=== PATIENT | female | born 1945 | race Caucasian/White ===

== ENCOUNTER 2024-08-13 15:54 | Inpatient (IN) | payer BC, SELFPAY ==
[2024-08-13] VITALS (13 sets, daily range): BP systolic 135–164; BP diastolic 65–103; BMI 23.0
[2024-08-13 12:23] LABS: Glucose - Point of Care 182 mg/dl (70-99)
--- NOTE | 2024-08-13 12:26 | ED.CVA ---
History of Present Illness
General
Chief Complaint: CVA/TIA Symptoms
Time Seen by Provider: 08/13/24 12:25
Onset of Stroke Symptoms
Onset of symptoms known: Yes
Date of onset of symptoms: 08/13/24
Time of onset of symptoms: 11:30
History of Present Illness
History of Present Illness:
79-year-old female with history of metastatic lung cancer presents to the emergency department for evaluation of stroke symptoms. She apparently began feeling lightheaded which prompted staff to call EMS, on arrival of EMS she was noted to have
left upper and left lower extremity weakness. She denies any speech difficulty, vision changes, neck pain, or vomiting. No prior history of stroke. She is anticoagulated due to a PE in February 2024. She was receiving IV infusion of gemcitabine
when the symptoms began.
Review of Systems
Review of Systems
Allergies reviewed?: Yes
All Other Systems: ROS reviewed and negative except as documented in HPI and ROS
Phy Exam
Physical Exam
Physical Exam:
GEN: Well appearing, NAD, WDWN
HEENT: Oral mucosa moist, no scleral icterus, no nasal congestion
Cardiac: Regular rate
Lung: No respiratory distress, no tachypnea
MSK: No gross deformity or injuries
Skin: Good color, no pallor or jaundice, no rashes
Neuro: AO x3; CN II-XII grossly intact. Left upper extremity weakness, 4 out of 5 strength, sensation intact. Left lower extremity strength is 3 out of 5, sensation intact. Limb ataxia x 1 to the left upper extremity
Psych: Calm, cooperative
Scores
NIH Stroke Score
Level of Consciousness: 0 - Alert
LOC Questions: 0-Answers both correctly
LOC Commands: 0-Performs both correctly
Best Horizontal Gaze: 0-Normal
Visual Soliman: 0=Normal, no visual loss
Facial Palsy: 0=Normal, symmetrical
Motor - Right Arm: 0=No drift 10 seconds
Motor - Left Arm: 2=Partial vs. gravity
Motor - Right Le-No drift 5 seconds
Motor - Left Le-None vs. gravity
Limb Ataxia: 1-Present in one limb
Sensation: 0-Normal
Best Language: 0-No aphasia
Dysarthria: 0-Normal
Course
Orders/Labs/Results
Orders:
Orders
08/13/24 12:25
CT HEAD STROKE ALERT W/o Cont Urgent
Comment:
Reason For Exam: stroke
CT HEAD/NECK ANG STROKE ALERT Urgent
Comment:
Reason For Exam: stroke
08/13/24 12:26
Electrocardiogram (*1) Stat
Reason for Study: Other
Other Reason for Exam: neuro symptoms
EKG- Treatment ONCE
08/13/24 12:58
Complete Blood Count/With Diff Urgent
Comprehensive Metabolic Panel Urgent
PTT Urgent
Prothrombin Time Urgent
Troponin I Urgent
Abnormal Lab Results
08/13/24 08/13/24
12:22 12:58
WBC 13.5 H 10^3/uL
(4.8-10.8)
Hct 36.4 L %
(37.0-47.0)
RDW 18.8 H %
(11.5-14.5)
Abs Immat Gran (auto) 0.7 H 10^3/uL
(0-0.05)
Absolute Neuts (auto) 11.9 H 10^3/uL
(1.4-6.5)
Absolute Lymphs (auto) 0.3 L 10^3/uL
(1.2-3.4)
Immature Gran % 4.8 H %
(0-0.5)
Neutrophils % 88.1 H %
(42.2-75.2)
Lymphocytes % 2.4 L %
(20.5-51.1)
PT 17.0 H Sec
(11.4-14.6)
BUN 19 H mg/dl
(7-17)
Creatinine 0.5 L mg/dL
(0.6-1.0)
Glucose 174 H mg/dl
(70-99)
Total Protein 5.8 L g/dl
(6.3-8.2)
Albumin 3.4 L g/dl
(3.5-5.0)
POC Glucose 182 H mg/dl
(70-99)
08/13/24 12:58
08/13/24 12:58
Vital Signs
Initial and Last Documented VS:
Initial Vital Signs
BP
164/103
08/13/24 12:20
Last Documented Vital Signs
Temp Pulse Resp BP Pulse Ox
98.3 F 98 16 164/103 98
08/13/24 12:22 08/13/24 13:00 08/13/24 13:00 08/13/24 12:22 08/13/24 13:07
MDM/Problems Addressed
MDM/Problems Addressed:
79-year-old female presents as a stroke alert. She has an NIH score of 6 for left upper and lower extremity weakness as well as left upper extremity ataxia. CT and CTA showed no evidence for hemorrhage or large vessel occlusion. She is
anticoagulated on Eliquis thus is not a candidate for thrombolysis as she has taken this within the past 48 hours. Neurology saw the patient and consulted at bedside. Will admit to the hospitalist service for further management
*Critical Care Note
Total Time (30-74mins, 75-104mins- exclusive of procedures): Not Applicable
ED Attending Note
-
Portions of this chart may have been created with voice recognition software.� Occasional wrong word or��sound alike� substitutions may have occurred due to the inherent limitations of voice recognition software.
Discharge Plan
Departure
Patient Disposition: Admit
Date of Disposition: 08/13/24
Time of Disposition: 13:52
Presentation/result/management discussed w/ accepting MD/DO: Hospitalist
Discharge Problem:
Stroke
Instructions: Stroke (DC)
Referrals:
UNKNOWN - PT DOES,NOT KNOW [Family Provider] -
Interventions
Interventions:
*Risk Screen - Suicide Last Done: 08/13/24 13:05
*General Assessment Last Done: 08/13/24 13:05
*Neglect/Abuse Screening Last Done: 08/13/24 13:05
*ED- Fall Risk Assessment Last Done: 08/13/24 13:05
*ED COVID-19 Vaccine History Last Done: 08/13/24 13:05
ED- Pulmonary Assessment Last Done: 08/13/24 13:07
ED- Neurological Assessment Last Done: 08/13/24 13:07
ED- Cardiac Assessment Last Done: 08/13/24 13:07
ED Swallowing Screen Last Done: 08/13/24 13:07
Discharge Date and Time
Print Language: BENGALI
--- NOTE | 2024-08-13 12:41 | CON.NEURO ---
Consultation
Order
Date of Consultation: 08/13/24
Requesting Provider: Galen Healy PA-C
Reason for Consult: Stroke alert
Called in at 12:20 PM
Neurology Consultation Note.
HPI: This is an 79-year-old right-handed woman who presented to [facility] on August 13, 2024 with left-sided weakness. According to the patient she was receiving a chemotherapy infusion at approximately 11:50 AM when she first developed
left arm weakness that transiently worsened upon ER arrival. The patient admits to left leg weakness that started sometime from 9 AM before EMS arrival. Ms. Guido states that she did use a walker today because she has been 'loopy '.
EMS vital signs: 148/92, 115, 16, 98 on room air, fingerstick�192.
ER VS: 164/103, 98, afebrile, 98% on room air.
PDMP:Oxycontin Er 10 Mg 90 tablets filled in on July 25, 2024, oxycodone 5 mg 60 tablets filled in on July 16, 2024, morphine sulfate 15 filled in on August 18, 2024.
CT head wo contrast�mild atrophy, minor decreased attenuation in the periventricular deep white matter bilaterally compatible with senescent and/or small vessel ischemic changes. The brainstem and posterior fossa structures demonstrate no
significant focal abnormality.
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
PSH: Bilateral cataract surgery
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
FH: Not contributory.
All: Hydromorphone, codeine, Avelox, Krazati�recurrent pneumonitis
ROS: Negative for headache, positive for left arm and leg weakness
General: Well developed. In no acute distress.
Cardio: Regular rate and rhythm without murmur. Extremities are without cyanosis or edema.
Neuro:
Mental Status: Alert, oriented to person self. Mildly impaired attention. Follows simple requests, no aphasia or hemineglect.
Cranial Nerves: Pupils are equally round, surgical. EOMs full. Visual rivera full to confrontation. No ptosis. No nystagmus. V1-V3 intact to light touch and pinprick bilaterally, symmetric. Minimal right facial weakness. Preserved hearing
AU. The palate elevated well. SCMs and traps 5/5. Tongue midline. No dysarthria. Moderate dysphonia.
Motor: Left PT and leg drift.
Coordination: No dysmetria or tremor.
Gait: deferred
Assessment and Plan:
I. Acute left pure motor lacunar syndrome. Not a candidate for IV TNK due to systemic anticoagulation.
II. Stage IV lung cancer
III. Dysphonia
IV. Chronic opioid therapy.
-Continue Telemetry monitoring
-Cautious lowering of BP by approximately 15 % during the first 24 hours is SBP >220 mmHg or diastolic blood pressure >120 mmHg
-Restart antihypertensive medications if BP>140/90 mmHg and neurologically stable in 24 to 48 hours after stroke onset
-TTE
- Start DAPT and hold Eliquis
-Lipitor 40 mg QHS.
-Please check HbA1C, LDL.
-Brain MRI with and without aimee with sedation
-PT.
-Please obtain medical records from [facility].
-DVT prophylaxis.
Please obtain medical records from [facility].
I personally reviewed all radiology and labs along with past medical records pertinent to current medical problems. Total time spent in patient care is 60 minutes.
Thank you for allowing us to participate in the care of this patient. We will continue to follow. Please do not hesitate to contact us with any questions or concerns.
Subjective/Objective
Subjective Data
Date of Service: August 13, 2024
Objective Data
Vital Signs
Temp Pulse Resp BP Pulse Ox
36.8 C 98 16 164/103 98
08/13/24 12:22 08/13/24 12:22 08/13/24 12:22 08/13/24 12:22 08/13/24 12:22
Patient Allergies
moxifloxacin [From Avelox] Allergy (Intermediate, Verified 08/13/24 12:22)
Unknown
hydromorphone [From Dilaudid] Allergy (Mild, Verified 08/13/24 12:22)
Rash
codeine Allergy (Verified 08/13/24 12:22)
Nausea / Vomiting
Vital Signs and Labs
-
Vital Signs and Labs:
Vital Signs
Temp Pulse Resp BP Pulse Ox
36.8 C 98 16 164/103 98
08/13/24 12:22 08/13/24 12:22 08/13/24 12:22 08/13/24 12:22 08/13/24 12:22
[2024-08-13 13:16] LABS: % Basophils 0.2 % (0-2); % Eosinophils 0.1 % (0-6); % Immature Granulocytes 4.8 % (0-0.5); % Lymphocytes 2.4 % (20.5-51.1); % Monocytes 4.4 % (1.7-9.3); % Neutrophils 88.1 % (42.2-75.2); Absolute Immature Granulocytes 0.7 10^3/uL (0-0.05); Absolute Lymphocytes 0.3 10^3/uL (1.2-3.4); Absolute Monocytes 0.6 10^3/uL (0.1-0.6); Absolute Neutrophils 11.9 10^3/uL (1.4-6.5); Hematocrit 36.4 % (37.0-47.0); Hemoglobin 12.2 g/dL (12.0-16.0); Mean Corp Hgb Conc. 33.5 g/dL (33.0-37.0); Mean Corpuscular Hgb 28.5 pg (27.0-31.0); Mean Platelet Volume 10.1 fL (7.4-10.4); Nucleated Red Blood Cells % 0 %; Platelet Count 219 10^3/uL (130-400); Red Blood Cell Count 4.28 10^6/uL (4.20-5.40); Red Cell Dist. Width 18.8 % (11.5-14.5); White Blood Cell Count 13.5 10^3/uL (4.8-10.8)
[2024-08-13 13:21] LABS: APTT 27.1 Sec (23.4-35.0); INR 1.35
[2024-08-13 13:22] LABS: ALT (SGPT) 17 U/L (0-35); AST (SGOT) 16 U/L (14-36); Albumin 3.4 g/dl (3.5-5.0); Alkaline Phosphatase 57 U/L (38-126); Blood Urea Nitrogen 19 mg/dl (7-17); Calcium 9.1 mg/dl (8.4-10.2); Carbon Dioxide 25 mmol/L (22-30); Chloride 101 mmol/L (98-107); Estimated Creatinine Clearance 62 ml/min; Glucose 174 mg/dl (70-99); Potassium 4.9 mmol/L (3.5-5.1); Sodium 135 mmol/L (135-145); Total Bilirubin 0.5 mg/dl (0.2-1.3); Total Protein 5.8 g/dl (6.3-8.2); eGFR > 60.00
[2024-08-13 13:49] LABS: Troponin I < 0.012 ng/ml
--- NOTE | 2024-08-13 14:00 | HPS.HSE ---
Family Physician
-
Family Physician: NOT KNOW UNKNOWN - PT DOES
Chief Complaint
-
Left-sided weakness
History of Present Illness
79-year-old female with history of non-small cell metastatic lung cancer Dx right upper lung, left supraclavicular, left 2nd and 3rd ribs stage IVb status post radiation [phone] left ribs [facility] treated with
carbo/pemetrexed, Keytruda with mets to liver, supraclavicular and cervical started second line therapy 02/14 - 06/27/2024 with Ktazati which cause recurrent pneumonitis. Had PET scans showing mets to left supraclavicular, new cervical mets, multiple
liver mets. The patient then switched her oncologist from [facility] as they suggested hospice down to [facility] where she began gemcitabine on 07/30 every 2 weeks off 1 week then second infusion of gemcitabine today 1 hour. She is
also receiving radiation to her left shoulder and coccyx due to metastases there she is on chronic OxyContin and oxycodone. Today she took OxyContin at 730 typically waits 5 hours before taking oxycodone 5 mg however took it at 910am and at 940am
she started to feel giggly and wobbly with walking so her placed her in a wheelchair. She pushed her into chemotherapy where they proceeded to take her blood pressure 169/84. During her chemo transfusion of gemcitabine she developed left
upper and left lower extremity weakness. She was unable to move her left side for approximately 20 minutes. She states that it has been occurring on and off while here . She was hypertensive with BP 164/103 on arrival but is currently self
corrected to 146 systolic. She is current left arm 4-5 strength, left leg 2 out of 5 can slide leg only medially unable to lift it she has trace left facial weakness with smiling she has no speech difficulty. She denies headache, speech
difficulty, visual changes, fever, chills, chest pain, palpitations, cough, shortness of breath, abdominal pain, nausea, vomiting, diarrhea, urinary symptoms. She has past medical history of current stage IVb metastatic adenocarcinoma on third line
chemotherapy, prior radiation left 2nd and 3rd ribs 11/19 - 11/24/2023, current radiation left shoulder, coccyx, HLD, PE February 2024 on current Eliquis, GERD, insomnia, former smoker 50 years 1 pack a day quit 10 years ago age 69, pneumonitis
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
Medical History
Past Medical History
Past Medical History: Reports Other
Additional Past Medical History:
Dx stage IVb metastatic adenocarcinoma right upper lung, left supraclavicular, left 2nd and 3rd ribs stage IVb status post radiation left ribs [facility]
First-line treated with carbo/pemetrexed, Keytruda with mets to liver, supraclavicular and cervical
started second line therapy 02/14 - 06/27/2024 with Ktazati which cause recurrent pneumonitis.
Had PET scans showing mets to left supraclavicular, new cervical mets, multiple liver mets-started third line therapy 2024 [facility]
current radiation left shoulder, coccyx
chronic pain to shoulder and coccyx on chronic oral opiates
HLD PE February 2024 on current Eliquis
GERD
insomnia
COPD
former smoker 50 years 1 pack a day quit 10 years ago age 69,
dry eye syndrome
Past Surgical History: Reports Other
Additional Past Surgical History:
Tonsillectomy
Cholecystectomy
Social History
Tobacco: Former Smoker (1 pack a day x 50 years quit age [age] years ago)
Alcohol: None
Drug: None
Personal:
Living: With Family ( Sonu)
Employment: Retired
Family History
Family History: Adopted
Allergies / Home Medications
Allergies reflects when Allergies were last updated in [employer].
Home Medications with original date entered in [employer]
Allergy/Medication List:
Allergies
Allergy/AdvReac Type Severity Reaction Status Date / Time
moxifloxacin [From Avelox] Allergy Intermediate Unknown Verified 08/13/24 12:22
hydromorphone [From Dilaudid] Allergy Mild Rash Verified 08/13/24 12:22
codeine Allergy Nausea / Verified 08/13/24 12:22
Vomiting
Home Medications
Bifidobacterium infantis 4 mg capsule (Align (B.infantis)) 4 mg PO DAILY 08/13/24
acetaminophen 500 mg tablet (Tylenol Extra Strength) 1,000 mg PO QID 08/13/24
apixaban 5 mg tablet (Eliquis) 5 mg PO BID 08/13/24
dexamethasone 2 mg tablet 2 mg PO BID 08/13/24
gabapentin 100 mg capsule 100 mg PO HS 08/13/24
gabapentin 100 mg capsule 200 mg PO DAILY 08/13/24
levalbuterol HCl 0.63 mg/3 mL solution for nebulization 0.63 mg inhalation R Q6HPRN PRN sob 08/13/24
lidocaine-prilocaine 2.5 %-2.5 % topical cream 1 applic topical DAILYPRN PRN port 08/13/24
lifitegrast 5 % eye drops in a dropperette (Xiidra) 1 drp BOTH EYES BID 08/13/24
omeprazole 40 mg capsule,delayed release 40 mg PO DAILY 08/13/24
ondansetron HCl 8 mg tablet 8 mg PO [id number] PRN nausea 08/13/24
oxycodone 10 mg tablet,crush resistant,extended release 12 hr (OxyContin) 10 mg PO TID@0500,1400,2000 08/13/24
oxycodone 5 mg tablet 5 mg PO BID@1000,2200 08/13/24
prednisone 20 mg tablet 10 mg PO DAILY 08/13/24
roflumilast 500 mcg tablet (Daliresp) 500 mcg PO DAILY 08/13/24
therapeutic multivitamin 1 tab PO DAILY 08/13/24
umeclidinium 62.5 mcg-vilanterol 25 mcg/actuation powdr for inhalation (Anoro Ellipta) 1 inh inhalation R DAILY 08/13/24
Review of Systems
-
History Source: Patient and Family ( Sonu genao)
A 12 point ROS was completed and negative except as noted: Yes
Constitutional: Denies Fever, Fatigue or Chills
EENT: Reports Other (Subtle left-sided facial droop with smiling); Denies Sore Throat or Runny Nose
Respiratory: Reports Other (Chronic flushing of upper chest when anxious); Denies Cough or Trouble Breathing
Cardiac: Denies Chest Pain, Diaphoresis, Palpitations or Syncope
Abdomen/GI: Denies Abdominal Pain, Nausea, Vomiting, Diarrhea, Constipated, Bloody Stools or Black Stools
: Denies Dysuria, Frequency, Flank Pain, Incontinence, Difficulty Voiding, Urgency, Bleeding or Dark Urine
Musculoskeletal: Denies Joint Pain or Edema
Skin: Denies Itching or Rash
Neurological: Reports Weakness (Left upper extremity, left lower extremity); Denies Dizzy or Headache
Endocrine: Reports No Symptoms
Hematologic/Lymphatic: Reports No Symptoms
Psych: Reports Anxiety
Physical Exam
Vital Signs
Vital Signs
Temp Pulse Resp BP Pulse Ox
98.3 F 98 16 164/103 98
08/13/24 12:22 08/13/24 13:00 08/13/24 13:00 08/13/24 12:22 08/13/24 13:07
Physical Exam
General: Comfortable and Conversant; No Pain, Fever or Chills
HEENT: NormoCephalic, Anicteric, Moist mucous membranes, Kilauea Conjunctivae, No Ptosis and Other (Subtle left-sided facial droop with smiling)
Respiratory: Clear; No Wheezes, Rales or Rhonchi
Cardiac: S1/S2 and Regular Rhythm; No Murmur, Rub, Gallop or Peripheral Edema
GI: Soft, Non Tender, Non Distended, Normal Bowel Sounds and No Hepatosplenomegaly
Rectal: Deferred by Provider
Genito-urinary: Deferred by me
Musculoskeletal: No Clubbing, No Cyanosis and No Edema
Skin: Warm, Dry and Other (Flushing to upper chest and face when anxious); No Rash
Neuro: AO x 3 (But anxious), Nonfocal/grossly intact, No Sensory Deficits, Facial Droop (Subtle left-sided facial with smiling) and Other (Slight weak shrug of shoulders left side, left arm 4 out of 5 strength, left lower extremity 2 out of 5
strength can slide leg medially only); No Slurred Speech, Tremors or Sedated
Psych: Anxious (Tearful)
Laboratory Results
-
08/13/24 12:58
08/13/24 12:58
Laboratory Results
PT 17.0 Sec (11.4-14.6) H 08/13/24 12:58
INR 1.35 08/13/24 12:58
APTT 27.1 Sec (23.4-35.0) 08/13/24 12:58
Total Bilirubin 0.5 mg/dl (0.2-1.3) 08/13/24 12:58
AST 16 U/L (14-36) 08/13/24 12:58
ALT 17 U/L (0-35) 08/13/24 12:58
Alkaline Phosphatase 57 U/L (38-126) 08/13/24 12:58
Troponin I < 0.012 ng/ml 08/13/24 12:58
Data Reviewed
-
CT Scan: Report Reviewed by me
Lab Data: Labs Reviewed by me
Impression/Plan
-
Impression/plan:
Inpatient telemetry
#Left upper extremity, left lower extremity weakness during chemotherapy concern for ACUTE CVA/TIA
Severe claustrophobia unable to do open or closed MRI
- Consult neurology
- Neurochecks every 4 hours
- Check lipid profile, HgbA1c
- Add aspirin 81 mg now and aspirin 81 mg daily, start Ecyexs547 mg now, 75 mg
-HOLd Eliquis
- PT/OT/case management consult
#Hypertensive urgency
164/103 > 146/64 self corrected
Patient has been off blood pressure medication since February 2024-had diltiazem ER 120 mg last filled June and Lopressor 12.5 mg daily on 04/25/2024 has been off due to SBP less than 130
-Cautious lowering of BP by approximately 15 % during the first 24 hours is SBP >220 mmHg or diastolic blood pressure >120 mmHg
-Restart antihypertensive medications if BP>140/90 mmHg and neurologically stable in 24 to 48 hours after stroke onset 08/14 - 08/15/2024
EKG: Sinus rhythm with PACs 92 bpm, QTc 482 MS otherwise normal
CTA head and neck:
1. Atherosclerotic changes of the carotid bulbs and proximal internal carotid arteries bilaterally without findings to suggest hemodynamically significant stenosis.
2. No findings to suggest internal carotid artery or vertebral artery dissection bilaterally. Dominant right vertebral artery.
3. No findings to suggest proximal intracranial arterial stenosis or vessel cut off bilaterally.
4. Irregular right upper lobe opacity measuring at least 2 cm extending to the right hilum, suspicious for malignancy. Additional smaller right apex nodular opacity also at least suspicious for malignancy.
5. No acute intracranial abnormality CT head
#Acute leukocytosis secondary to chronic steroid use
WBC 13.5 with left shift, afebrile 98.3, HR 98, BP 164/103
- Patient denies fever, chills, cough, urinary symptoms
-- Is on Chronic prednisone 10 mg in a.m. with dexamethasone 2 mg twice daily
- Follow CBC
#Stage IVb metastatic adenocarcinoma on third line chemotherapy gemcitabine first dose 07/30 today 08/13/2024
# Non-small cell metastatic lung cancer Dx right upper lung, left supraclavicular, left 2nd and 3rd ribs
#stage IVb status post radiation left 2nd, 3rd ribs [facility] treated with 1ST LINE Carbo/pemetrexed, Keytruda
Mets to liver, supraclavicular and cervical Started Second line therapy 02/14 - 06/27/2024 with Ktazati which cause recurrent pneumonitis.
PET scans showing METS to LEFT Supraclavicular, new CERVICAL METS , Multiple LIVER mets.-Switch to Third line gemcitabine
The patient then switched her oncologist from [facility] as they suggested hospice down to [facility]
- Currently follows with [facility] but lives in [place] was getting treatment at [facility] [phone]
-Patient is due for [facility] placement on August 27 at [facility]
- Is on Chronic prednisone 10 mg in a.m. with dexamethasone 2 mg twice daily
#Hyperglycemia secondary to chronic steroid use
Blood sugar 174, check HgbA1c
Accu-Cheks with SSI
#Chronic pain left shoulder/coccyx on chronic oral opiates
current radiation left shoulder, coccyx
- Patient on OxyContin 10 mg up to 3 times daily is currently taking it twice daily@05, 1700 with oxycodone 5 mg twice daily at 10 AM and 2200
- Continue Tylenol 1000 mg 4 times daily
#HLD
Check lipid profile
-Was on Lipitor was stopped during second line chemo never restarted
#PE February 2024 on current Eliquis
- Hold Eliquis 5 mg twice daily
#GERD
-Continue omeprazole or equivalent
#Insomnia
- Continue melatonin
#COPD�no acute exacerbation
#former smoker 50 years 1 pack a day quit 10 years ago age 69,
-Continue Anoro Ellipta
#Pulmonary embolism February 2024
Continue Eliquis 5 mg twice daily
#Dry eye syndrome
Continue XIIDRA-patient may use own
DVT prophylaxis
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
Full code per patient with Sonu at bedside
--- NOTE | 2024-08-13 15:14 | W.PN.UPDATE ---
Addendum entered and electronically signed by Jacob Hernandez MD 08/13/24 15:17:
Hold Eliquis and start ASA/Plavix as per neuro. Check echo.
Original Note:
Update Note
Progress Note Update
This is an addendum to the H&P written by Ivis Wadsworth on 08/13/2024.� Patient seen and examined independently with DATA MANAGEMENT.
79-year-old female past medical history of stage IV metastatic lung cancer on third line chemotherapy and gemcitabine, PE 2023 on Eliquis, hypertension, hyperlipidemia, GERD, insomnia, former smoker, chronic pain in shoulder coccyx on chronic
opiates, COPD, dry eye syndrome, severe claustrophobia, presenting for significant left-sided weakness during chemotherapy today. Initially she was loopy from extra oxycodone before chemo but this has improved.
Blood pressure 160s.� Labs show leukocytosis.
CT head shows no acute abnormality.� CTA head and neck shows atherosclerosis without acute abnormality.
Concern for CVA significant left-sided weakness.� Not candidate for TNK given she is on Eliquis.� Add aspirin to Eliquis.� Cannot do MRI due to significant claustrophobia even with open MRI.� Check A1c and lipid panel.� Neurology consulted.�
Permissive hypertension.
[2024-08-13] MEDS: ASPIR LOW (ENTERIC COATED) 81 MG PO (15:38)
[2024-08-13] MEDS: PLAVIX 300 MG PO (15:39)
[2024-08-13] MEDS: TYLENOL 1000 MG PO (18:08)
[2024-08-13] MEDS: LIPITOR 40 MG PO (19:57)
[2024-08-13] MEDS: DECADRON 2 MG PO (19:58)
[2024-08-13] MEDS: OXYCONTIN (CONTROLLED RELEASE) 10 MG PO (19:58)
[2024-08-13] MEDS: NEURONTIN 100 MG PO (22:07)
[2024-08-13] MEDS: ROXICODONE 5 MG PO (22:07)
[2024-08-14] VITALS (9 sets, daily range): BP systolic 122–163; BP diastolic 74–100; PULSE 79; O2SAT 100; BMI 24.6
[2024-08-14] MEDS: TYLENOL 1000 MG PO ×4 (00:30→21:58)
--- NOTE | 2024-08-14 02:17 | TRANSFER ---
Pt arrived to unit from ED to unit in inpatient hospital bed. NIH score of 6 which is unchanged from ED. spending the night. PT oriented to room, call landeros within reach, plan of care ongoing.
[2024-08-14] MEDS: OXYCONTIN (CONTROLLED RELEASE) 10 MG PO ×3 (04:17→19:54)
[2024-08-14 07:10] LABS: % Basophils 0.1 % (0-2); % Eosinophils 0.4 % (0-6); % Immature Granulocytes 2.1 % (0-0.5); % Lymphocytes 4.1 % (20.5-51.1); % Neutrophils 86.3 % (42.2-75.2); Absolute Immature Granulocytes 0.2 10^3/uL (0-0.05); Absolute Lymphocytes 0.4 10^3/uL (1.2-3.4); Absolute Monocytes 0.6 10^3/uL (0.1-0.6); Absolute Neutrophils 7.4 10^3/uL (1.4-6.5); Hematocrit 35.6 % (37.0-47.0); Mean Corp Hgb Conc. 33.7 g/dL (33.0-37.0); Mean Corpuscular Hgb 28.6 pg (27.0-31.0); Mean Corpuscular Volume 84.8 fL (81.0-99.0); Mean Platelet Volume 10.1 fL (7.4-10.4); Nucleated Red Blood Cells % 0 %; Platelet Count 233 10^3/uL (130-400); Red Cell Dist. Width 18.8 % (11.5-14.5); White Blood Cell Count 8.5 10^3/uL (4.8-10.8)
--- NOTE | 2024-08-14 07:31 | W.PN.NEURO.1 ---
Today's Communication / Plan
-
.
Subjective/Objective
Subjective Data
Date of Service: August 14, 2024
Neurology follow-up note.
Ms. Hodge states that her left sided weakness has worsened since admission.
No reports of headache, change in vision, dysarthria or neck pain.
BP in am-163/80. LDL�95, hemoglobin A1c�5.7.
CT head wo contrast�mild atrophy, minor decreased attenuation in the periventricular deep white matter bilaterally compatible with senescent and/or small vessel ischemic changes. The brainstem and posterior fossa structures demonstrate no
significant focal abnormality.
CTA head�no evidence of hemodynamically significant stenosis.
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
PSH: Bilateral cataract surgery
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
FH: Not contributory.
All: Hydromorphone, codeine, Avelox, Krazati�recurrent pneumonitis
ROS: Negative for headache, positive for left arm and leg weakness
General: Well developed. In no acute distress.
Cardio: Regular rate and rhythm without murmur. Extremities are without cyanosis or edema.
Neuro:
Mental Status: Alert, oriented to person self. Mildly impaired attention. Follows simple requests, no aphasia or hemineglect.
Cranial Nerves: Pupils are equally round, surgical. EOMs full. Visual rivera full to confrontation. No ptosis. No nystagmus. V1-V3 intact to light touch and pinprick bilaterally, symmetric. Minimal right facial weakness. Preserved hearing
AU. The palate elevated well. SCMs and traps 5/5. Tongue midline. No dysarthria. Moderate dysphonia.
Motor: Left PT and leg drift.
Coordination: No dysmetria or tremor.
Gait: deferred
Assessment and Plan:
I. Acute left pure motor lacunar syndrome. Not a candidate for IV TNK due to systemic anticoagulation.
II. Stage IV lung cancer
III. Dysphonia
IV. Chronic opioid therapy.
-Continue Telemetry monitoring
-TTE
-Continue DAPT and hold Eliquis
-Lipitor 40 mg QHS.
-Please obtain repeat CT head in 24 hours from the initial 1 if brain MRI is not feasible
-Brain MRI with and without aimee with sedation
-PT.
-DVT prophylaxis.
I personally reviewed all radiology and labs along with past medical records pertinent to current medical problems. Total time spent in patient care is 35 minutes.
Thank you for allowing us to participate in the care of this patient. We will continue to follow. Please do not hesitate to contact us with any questions or concerns
Objective Data
Vital Signs
Temp Pulse Resp BP Pulse Ox
36.4 C 77 18 151/84 97
08/14/24 03:00 08/14/24 03:00 08/14/24 03:00 08/14/24 03:00 08/14/24 03:00
Lab Results
08/14/24 06:25
PT 17.0 Sec (11.4-14.6) H 08/13/24 12:58
INR 1.35 08/13/24 12:58
APTT 27.1 Sec (23.4-35.0) 08/13/24 12:58
Sodium 135 mmol/L (135-145) 08/13/24 12:58
Potassium 4.9 mmol/L (3.5-5.1) 08/13/24 12:58
BUN 19 mg/dl (7-17) H 08/13/24 12:58
Glucose 174 mg/dl (70-99) H 08/13/24 12:58
Calcium 9.1 mg/dl (8.4-10.2) 08/13/24 12:58
Patient Allergies
moxifloxacin [From Avelox] Allergy (Intermediate, Verified 08/13/24 12:22)
Unknown
hydromorphone [From Dilaudid] Allergy (Mild, Verified 08/13/24 12:22)
Rash
codeine Allergy (Verified 08/13/24 12:22)
Nausea / Vomiting
Vital Signs and Labs
-
Vital Signs and Labs:
Vital Signs
Temp Pulse Resp BP Pulse Ox
36.3 C 73 18 163/80 98
08/14/24 08:00 08/14/24 08:00 08/14/24 08:00 08/14/24 08:00 08/14/24 08:00
Lab Results
08/14/24 06:25
08/14/24 06:25
PT 17.0 Sec (11.4-14.6) H 08/13/24 12:58
INR 1.35 08/13/24 12:58
APTT 27.1 Sec (23.4-35.0) 08/13/24 12:58
Sodium 135 mmol/L (135-145) 08/14/24 06:25
Potassium 4.8 mmol/L (3.5-5.1) 08/14/24 06:25
BUN 20 mg/dl (7-17) H 08/14/24 06:25
Glucose 140 mg/dl (70-99) H 08/14/24 06:25
Calcium 8.9 mg/dl (8.4-10.2) 08/14/24 06:25
LDL Cholesterol, Calc 95 mg/dl 08/14/24 06:25
Medications
-
Medications:
Generic Name Dose Route Start Last Admin
Trade Name Freq PRN Reason Stop Dose Admin
Acetaminophen 650 mg 08/13/24 16:46
Acetaminophen 325 Mg Tablet PO 09/10/24 16:45
Q4HPRN PRN
CH, mild pain, or temp >100.4F
Acetaminophen 650 mg 08/13/24 17:40
Acetaminophen 650 Mg Rectal Suppository RECTAL 09/10/24 17:39
Q4HPRN PRN
CH, mild pain, or temp >100.4F
Acetaminophen 1,000 mg 08/14/24 00:00 08/14/24 08:23
Acetaminophen 500 Mg Tablet PO 09/11/24 00:00 1,000 mg
TID EDIE Administration
Albuterol Sulfate 1.25 mg 08/13/24 19:12
Albuterol Nebs 1.25 Mg/3 Ml Ampul INH
R Q6HPRN PRN
sob
Aspirin 81 mg 08/14/24 08:00 08/14/24 08:22
Aspirin 81 Mg Chewable Tablet PO 09/11/24 07:59 81 mg
DAILY EDIE Administration
Atorvastatin Calcium 40 mg 08/13/24 18:56 08/13/24 19:57
Atorvastatin (Lipitor) 40 Mg Tablet PO 09/10/24 18:55 40 mg
QPM EDIE Administration
Clopidogrel Bisulfate 75 mg 08/14/24 08:00 08/14/24 08:23
Clopidogrel 75 Mg Tablet PO 09/11/24 07:59 75 mg
DAILY EDIE Administration
Dexamethasone 2 mg 08/13/24 20:00 08/14/24 08:23
Dexamethasone 2 Mg Tablet PO 09/10/24 19:59 2 mg
BID EDIE Administration
Gabapentin 100 mg 08/13/24 22:00 08/13/24 22:07
Gabapentin 100 Mg Capsule PO 09/10/24 21:59 100 mg
HS EDIE Administration
Gabapentin 200 mg 08/14/24 08:00 08/14/24 08:23
Gabapentin 100 Mg Capsule PO 09/11/24 07:59 200 mg
DAILY EDIE Administration
Insulin Aspart 0 units 08/14/24 07:30 08/14/24 07:58
Insulin Aspart Low Resistance 300 Units/3 Ml Pen.Injctr SC 09/11/24 07:29 Not Given
AC EDIE
Protocol
Lactobacillus/Bifidobacterium 1 cap 08/14/24 08:00 08/14/24 08:22
Lactobac/Bifidobac (Visbiome) PO 09/11/24 07:59 1 cap
DAILY EDIE Administration
Multivitamins Therapeutic 1 tablet 08/14/24 08:00 08/14/24 08:22
Multivitamin Tablet PO 09/11/24 07:59 1 tablet
DAILY EDIE Administration
Non-Formulary Medication 1 drop 08/13/24 20:00
Lifitegrast [Xiidra] BOTH EYES 09/10/24 19:59
BID EDIE
Olodaterol 2 puff 08/14/24 08:00 08/14/24 07:32
Olodaterol (Striverdi Respimat) 2.5 Mcg Inhaler INH 09/11/24 07:59 2 puff
R DAILY EDIE Administration
Ondansetron HCl 8 mg 08/13/24 19:14
Ondansetron 4 Mg Tablet PO 09/10/24 19:13
[id number] PRN
nausea
Oxycodone HCl 5 mg 08/13/24 22:00 08/13/24 22:07
Oxycodone 5 Mg Regular Release Tablet PO 08/27/24 21:59 5 mg
BID@1000,2200 EDIE Administration
Oxycodone HCl 10 mg 08/13/24 20:00 08/14/24 04:17
Oxycontin 10 Mg Controlled Release Tablet PO 08/27/24 19:59 10 mg
TID@0500,1400,2000 EDIE Administration
Pantoprazole Sodium 40 mg 08/14/24 08:00 08/14/24 08:22
Pantoprazole 40 Mg Delayed Release Tablet PO 09/11/24 07:59 40 mg
DAILY EDIE Administration
Prednisone 10 mg 08/14/24 08:00 08/14/24 08:23
Prednisone 10 Mg Tablet PO 09/11/24 07:59 10 mg
DAILY EDIE Administration
Roflumilast 500 mcg 08/14/24 08:00 08/14/24 08:22
Roflumilast (Daliresp) 500 Mcg Tablet PO 09/11/24 07:59 500 mcg
DAILY EDIE Administration
Sodium Chloride 0 flush 08/13/24 17:00
Sodium Chloride 0.9% (Flush) Syringe IV 09/10/24 16:59
PER PROTOCOL EDIE
Tiotropium [place] 2 puff 08/14/24 08:00 08/14/24 07:32
Tiotropium (Spiriva Respimat) 2.5 Mcg Inhaler INH 09/11/24 07:59 2 puff
R DAILY EDIE Administration
Home Medications
-
Home Medications
Bifidobacterium infantis 4 mg capsule (Align (B.infantis)) 4 mg PO DAILY 08/13/24
acetaminophen 500 mg tablet (Tylenol Extra Strength) 1,000 mg PO QID 08/13/24
apixaban 5 mg tablet (Eliquis) 5 mg PO BID 08/13/24
dexamethasone 2 mg tablet 2 mg PO BID 08/13/24
gabapentin 100 mg capsule 100 mg PO HS 08/13/24
gabapentin 100 mg capsule 200 mg PO DAILY 08/13/24
levalbuterol HCl 0.63 mg/3 mL solution for nebulization 0.63 mg inhalation R Q6HPRN PRN sob 08/13/24
lidocaine-prilocaine 2.5 %-2.5 % topical cream 1 applic topical DAILYPRN PRN port 08/13/24
lifitegrast 5 % eye drops in a dropperette (Xiidra) 1 drp BOTH EYES BID 08/13/24
omeprazole 40 mg capsule,delayed release 40 mg PO DAILY 08/13/24
ondansetron HCl 8 mg tablet 8 mg PO [id number] PRN nausea 08/13/24
oxycodone 10 mg tablet,crush resistant,extended release 12 hr (OxyContin) 10 mg PO TID@0500,1400,2000 08/13/24
oxycodone 5 mg tablet 5 mg PO BID@1000,2200 08/13/24
prednisone 20 mg tablet 10 mg PO DAILY 08/13/24
roflumilast 500 mcg tablet (Daliresp) 500 mcg PO DAILY 08/13/24
therapeutic multivitamin 1 tab PO DAILY 08/13/24
umeclidinium 62.5 mcg-vilanterol 25 mcg/actuation powdr for inhalation (Anoro Ellipta) 1 inh inhalation R DAILY 08/13/24
[2024-08-14] MEDS: STRIVERDI RESPIMAT 2 PUFF INH (07:32)
[2024-08-14] MEDS: SPIRIVA RESPIMAT 2.5 MCG 2 PUFF INH (07:32)
[2024-08-14 07:41] LABS: Blood Urea Nitrogen 20 mg/dl (7-17); Calcium 8.9 mg/dl (8.4-10.2); Carbon Dioxide 24 mmol/L (22-30); Chloride 101 mmol/L (98-107); Estimated Creatinine Clearance 62 ml/min; Glucose 140 mg/dl (70-99); HDL Cholesterol 54 mg/dl; LDL Cholesterol, Calculated 95 mg/dl; Magnesium 2.1 mg/dl (1.6-2.3); Potassium 4.8 mmol/L (3.5-5.1); Sodium 135 mmol/L (135-145); Total Cholesterol 194 mg/dl (50-199); Triglyceride 227 mg/dl (10-149); Very Low Density Lipoprotein 45 mg/dl (0-30); eGFR > 60.00
[2024-08-14 07:47] LABS: Glucose - Point of Care 134 mg/dl (70-99)
[2024-08-14] MEDS: NOVOLOG FLEXPEN-LOW RESISTANCE SC (07:58)
[2024-08-14] MEDS: DALIRESP 500 MCG PO (08:22)
[2024-08-14] MEDS: VISBIOME 1 CAP PO (08:22)
[2024-08-14] MEDS: LOW STRENGTH ASPIRIN 81 MG PO (08:22)
[2024-08-14] MEDS: THERAGRAN 1 TABLET PO (08:22)
[2024-08-14] MEDS: PROTONIX 40 MG PO (08:22)
[2024-08-14] MEDS: DECADRON 2 MG PO ×2 (08:23→19:54)
[2024-08-14] MEDS: PLAVIX 75 MG PO (08:23)
[2024-08-14] MEDS: NEURONTIN 200 MG PO (08:23)
[2024-08-14] MEDS: DELTASONE 10 MG PO (08:23)
[2024-08-14 08:55] LABS: Glycohemoglobin (HgbA1c) 5.7 % (4.0-5.6)
[2024-08-14] MEDS: ROXICODONE 5 MG PO ×2 (09:41→21:58)
[2024-08-14 12:08] LABS: Glucose - Point of Care 154 mg/dl (70-99)
--- NOTE | 2024-08-14 12:59 | CM ---
Patient seen at bedside with Sonu
IA Completed. CM consult completed stroke/tia
MRI today
PMH: stage IV metastatic lung cancer on third line chemotherapy and gemcitabine
Patient states receives chemo at [facility], had radiation last wee
and was scheduled next on 08/27 also for port.
Lives in [place] a 2 story home with , 5 steps to enter, 13 steps to bedroom/bath
PLOF: Independent with walker
DME: Walker, cane, comode, shower chair, wheelchair
Current with home health (DOES NOT RECALL AGENCY NAME, WILL GET BACK TO ), has had SNF in past [facility]
PT rec Acute REHAB - CM to discuss options - will need insurance authorization
PCP: Randy Yip [phone]
Pharmacy: [facility]
PLAN: Acute Rehab, CM to continue to follow for dispo planning
[2024-08-14] MEDS: NOVOLOG FLEXPEN-LOW RESISTANCE 1 UNITS SC ×2 (14:10→17:26)
--- NOTE | 2024-08-14 14:15 | PTOTSP ---
Speech Therapy Evaluation:
Pt with acute on chronic risk factors of dysphagia including hx of stage IV lung CA and GERD, compounded by concern for acute CVA. Pt with left facial droop, resulting in reported anterior loss (not visualized during eval with placement of straw on
R) and pocketing in L buccal cavity. No overt s/sx of aspiration across PO trials.
Although pt with no hx of swallow dysfunction, no ST hx, and no s/sx of aspiration across PO trials, pt remains at increased risk of aspiration and related pulmonary complications 2/2 dysphonic vocal quality. Pt reported vocal changes x2 months from
cancer. Her MD at [facility] reported this was due to a node on her nerve (? vagus nerve). She reported some improvement following radiation (voice used to be closer to aphonic). Dysphonic vocal quality with questionable vagus nerve involvement, when
paired with recurrent pneumonitis (although this was reportedly due to chemo medication April), raises concern for integrity of airway protection.
Despite aforementioned areas of concern, pt appears appropriate to continue oral diet given WBC WNL, pt passed 3oz swallow screen, and pt on room air. No chest imaging completed thus far.
Recommend:
1. Continue IDDSI Level 7 (regular) solids and thin liquids
2. Medications as tolerated
3. Straw placement on R, added moisture, lingual sweep to clear buccal cavity residue
4. Consider GI consult given frequent belching with liquids (new per pt report)
5. 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
--- NOTE | 2024-08-14 14:27 | W.PN.HOSP.TC ---
Today's Communication/Plan
-
Repeat CT head
Hold Eliquis and continue with DAPT
Continue with high intensity statin
Neurochecks and telemetry
Assessment / Plan
Assessment / Plan
#Suspected acute CVA
#Left-sided extremity weakness and paresthesias
-Suspected right-sided lacunar infarct, likely associated with ASCVD and hypertension
-Suspect thrombotic etiology with waxing and waning clinical course since her arrival here
-Symptoms started while receiving chemotherapy, not TNK candidate due to Eliquis use
-CT head on arrival was without ICH or other acute findings, CTA without obstructive atherosclerosis
-Patient states that she recently had a ambulatory heart monitor with cardiology in [facility], was negative
-Upon arrival was started on DAPT and high intensity statin, continued on Eliquis for triple therapy (?)
-Per neurology note today, recommends proceeding with DAPT for now and holding off on Eliquis
-Unable to have MRI due to claustrophobia, repeat CT without contrast ordered, will follow-up
-Continue DAPT, statin; continue neurochecks
-Monitor on telemetry, order YARITZA
#Hypertensive urgency
-Not on any meds for hypertension
-Presented with SBP near 160, resolved without intervention
-Will continue to monitor and consider regimen for SBP goal <150 mmHg
#Leukocytosis due to demargination
#Hyperglycemia due to steroid use
-Patient is on chronic steroid with prednisone 10 mg daily and dexamethasone 2 mg twice daily
-Blood sugars here have been fairly well-controlled and <200 over 3 lab draws
-Will add on low resistance ISS with Accu-Cheks and monitor for now
-Trend CBC + temp, POC glucose
#Stage IVb NSCLC
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
#Former smoker
-Currently on third line chemotherapy with gemcitabine after recent signs of progression on second line
-Was initially on carbo/pemetrexed with Keytruda, subsequently on Ktazdi (which caused pneumonitis)
-Current regimen also includes chronic immunosuppression with prednisone 10 AM and decadron 2 BID
-Follows with [facility], previously received treatment at [facility]
#Dyslipidemia
-No known ASCVD history previously; LDL here 95
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
-Placed back onto high intensity statin due to likely CVA
#GERD
-Home regimen includes daily omeprazole
-No known history of erosive esophagitis or Yarbrough's esophagus
#Chronic pain on opiates
-Secondary to cancer related issues, has multifactorial pain
-Home regimen includes gabapentin for neuropathic pain, oxycodone for somatic pain
Added on heating pad as requested by patient
#COPD without exacerbation
-No PFTs to review; Home regimen includes Roflumilast, Anoro Ellipta, prednisone/dex, PRN lev albuterol
-Suspect advanced ages with likely gold C to D classification
-No signs of exacerbation at this time, no O2 at baseline
#Dry eye syndrome
-Continue's Xiidra eyedrop
#H/O pulmonary embolism (2023)
-Suspect this is provoked from her metastatic cancer
-Home medications include Eliquis 5 mg twice daily
-Holding Eliquis for now at neurology's recommendation, on DAPT instead
-Likely will need to go back on Eliquis for chronic VTE risk, even more so if occult AF/AFL found
Diet: Cholesterol-lowering
DVT prophylaxis: SQ heparin
CODE STATUS: Full code
Anticipated Discharge: > 48 hours
Subjective/Interval History
-
Date of Service: August 14, 2024
Seen and examined at the bedside. No acute events reported overnight. AFVSS at time of my assessment
Had echocardiogram that was fairly unremarkable, no signs of cardiac thrombus. Neurology attempting to have MRI done with pretreatment
Patient denies any new complaints as of this
Objective Data
-
Labs:
Laboratory Results
08/14/24
06:25
WBC 8.5
Hgb 12.0
Hct 35.6 L
Plt Count 233
Sodium 135
Potassium 4.8
Chloride 101
Carbon Dioxide 24
BUN 20 H
Creatinine 0.5 L
Glucose 140 H
Calcium 8.9
Vital Signs:
Vital Signs
Temp Pulse Resp BP Pulse Ox
97.6 F 71 18 161/79 98
08/14/24 11:00 08/14/24 11:00 08/14/24 11:00 08/14/24 11:00 08/14/24 11:00
I&O
08/13/24 08/14/24 08/15/24
06:59 06:59 06:59
Output Total 150 / 150
Balance -150 / -150
Review of Systems
-
History Source: Patient
All other systems: Reviewed and negative
Physical Exam
-
General: Well Developed, No Apparent Distress and Appears Chronically Ill
HEENT: Normocephalic, Atraumatic, Moist Mucous Membranes and Anicteric
Respiratory: Clear to Auscultation and Non Labored Respirations
Cardiac: Regular Rhythm and S1/S2; Negative Murmur, Rub, JVD or Gallop
GI: Soft, Nontender, Nondistended and Normal Bowel Sounds
Musculoskeletal: No Clubbing, No Cyanosis and No Edema
Skin: Warm, Dry and Normal Turgor; Negative Rash
Neuro: AO x 3, Central Nerve's Intact, No Sensory Deficits and Other (4/5 MMS to LUE, 3/5 MMS to LLE); Negative Slurred Speech
Psych: Calm
Data Reviewed
-
Labs: Labs Reviewed by me, Discussed with Physician (Neuro) and Discussed with Patient
--- NOTE | 2024-08-14 14:30 | PTCARENOTE ---
Pt given Ativan order before CT scan due to claustrophobia. Pt tolerated scan well, states that it helped with her anxiety with the test.
[2024-08-14] MEDS: ATIVAN 1 MG IV (14:48)
[2024-08-14] MEDS: NSS (PRESERVATIVE FREE) 0.5 ML IV (14:50)
[2024-08-14 16:45] LABS: Glucose - Point of Care 169 mg/dl (70-99)
[2024-08-14] MEDS: LIPITOR 40 MG PO (17:26)
[2024-08-14] MEDS: HEPARIN 5000 UNITS SC (19:54)
[2024-08-14 21:12] LABS: Glucose - Point of Care 119 mg/dl (70-99)
[2024-08-14] MEDS: NEURONTIN 100 MG PO (21:58)
[2024-08-15] VITALS (7 sets, daily range): BP systolic 126–147; BP diastolic 63–82
[2024-08-15] MEDS: OXYCONTIN (CONTROLLED RELEASE) 10 MG PO ×3 (04:32→19:50)
[2024-08-15 07:00] LABS: % Basophils 0.1 % (0-2); % Eosinophils 0.7 % (0-6); % Immature Granulocytes 0.7 % (0-0.5); % Lymphocytes 3.4 % (20.5-51.1); % Monocytes 2.6 % (1.7-9.3); % Neutrophils 92.5 % (42.2-75.2); Absolute Eosinophils 0.1 10^3/uL (0-0.7); Absolute Immature Granulocytes 0.1 10^3/uL (0-0.05); Absolute Lymphocytes 0.2 10^3/uL (1.2-3.4); Absolute Monocytes 0.2 10^3/uL (0.1-0.6); Absolute Neutrophils 6.3 10^3/uL (1.4-6.5); Hematocrit 37.1 % (37.0-47.0); Hemoglobin 12.3 g/dL (12.0-16.0); Mean Corp Hgb Conc. 33.2 g/dL (33.0-37.0); Mean Corpuscular Hgb 28.6 pg (27.0-31.0); Mean Corpuscular Volume 86.3 fL (81.0-99.0); Mean Platelet Volume 9.9 fL (7.4-10.4); Nucleated Red Blood Cells % 0 %; Platelet Count 228 10^3/uL (130-400); Red Cell Dist. Width 18.6 % (11.5-14.5); White Blood Cell Count 6.8 10^3/uL (4.8-10.8)
[2024-08-15 07:17] LABS: Blood Urea Nitrogen 30 mg/dl (7-17); Calcium 9.1 mg/dl (8.4-10.2); Carbon Dioxide 26 mmol/L (22-30); Chloride 101 mmol/L (98-107); Estimated Creatinine Clearance 62 ml/min; Glucose 149 mg/dl (70-99); Potassium 4.6 mmol/L (3.5-5.1); Sodium 135 mmol/L (135-145); eGFR > 60.00
[2024-08-15] MEDS: DECADRON 2 MG PO ×2 (07:35→19:50)
[2024-08-15] MEDS: VISBIOME 1 CAP PO (07:35)
[2024-08-15] MEDS: DELTASONE 10 MG PO (07:35)
[2024-08-15] MEDS: LOW STRENGTH ASPIRIN 81 MG PO (07:35)
[2024-08-15] MEDS: TYLENOL 1000 MG PO ×3 (07:35→22:26)
[2024-08-15] MEDS: PROTONIX 40 MG PO (07:35)
[2024-08-15] MEDS: SPIRIVA RESPIMAT 2.5 MCG 2 PUFF INH (07:35)
[2024-08-15] MEDS: NEURONTIN 200 MG PO (07:35)
[2024-08-15] MEDS: STRIVERDI RESPIMAT 2 PUFF INH (07:35)
[2024-08-15] MEDS: PLAVIX 75 MG PO (07:35)
[2024-08-15] MEDS: THERAGRAN 1 TABLET PO (07:35)
[2024-08-15] MEDS: DALIRESP 500 MCG PO (07:36)
[2024-08-15] MEDS: HEPARIN 5000 UNITS SC ×2 (07:36→19:50)
[2024-08-15 08:10] LABS: Glucose - Point of Care 179 mg/dl (70-99)
[2024-08-15] MEDS: NOVOLOG FLEXPEN-LOW RESISTANCE 1 UNITS SC ×3 (08:11→17:52)
[2024-08-15] MEDS: ROXICODONE 5 MG PO ×2 (09:08→22:26)
--- NOTE | 2024-08-15 09:23 | PN.CDI ---
CDI
- -
CDI:
Physician Documentation Request
Admit Date: 08/13/24 15:54
Dear Doctor Judson,
Please review the following and provide your response in the progress notes.
Clinical Indicators:
- Patient admit for suspected CVA
- 5/6 H&P lung cancer with mets to liver and bone
- 'chronic pain to shoulder and coccyx'
- 5/7 PN 'Chronic pain on opiates'
- 'Secondary to cancer related issues, has multifactorial pain'
If possible, please provide further specificity as outlined below:
Opioid use with dependence
Opioid dependence
Other (please specify)
Use of terms such as suspected, likely, concern for, or probable (associated with a specific diagnosis that is being evaluated, monitored, or treated as if it exists) are acceptable and can be coded in the inpatient setting, when documented at the
time of discharge.
Thank you,
Hien Clarke RN
CDI Specialist
Please use your independent medical judgment in providing your response.
--- NOTE | 2024-08-15 10:37 | W.PN.NEURO.1 ---
Today's Communication / Plan
-
.
Subjective/Objective
Subjective Data
Date of Service: August 15, 2024
Neurology follow-up note.
Ms. Hodge continues to have left-sided weakness. Patient is visibly upset due to her limitations given weakness.
No reports of neck pain.
Repeat CT head showed no evidence of acute infarcts.
TTE- Interatrial septum is intact with no evidence of shunting by color flow Doppler. No intracardiac mass or thrombus formation seen.
LDL�95, hemoglobin A1c�5.7.
CTA head�no evidence of hemodynamically significant stenosis.
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
PSH: Bilateral cataract surgery
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
FH: Not contributory.
All: Hydromorphone, codeine, Avelox, Krazati�recurrent pneumonitis
ROS: Negative for headache, positive for left arm and leg weakness
General: Well developed. In no acute distress.
Cardio: Regular rate and rhythm without murmur. Extremities are without cyanosis or edema.
Neuro:
Mental Status: Alert, oriented to person self. Labile mood. Follows simple requests, no aphasia or hemineglect.
Cranial Nerves: Pupils are equally round, surgical. EOMs full. Visual rivera full to confrontation. No ptosis. No nystagmus. V1-V3 intact to light touch and pinprick bilaterally, symmetric. No clear facial weakness preserved hearing AU. The
palate elevated well. SCMs and traps 5/5. Tongue midline. No dysarthria. Moderate dysphonia.
Motor: Left arm drifts to the bed in less than 10 seconds, left leg drift to the bed in less than 5 seconds
Coordination: No dysmetria or tremor.
Gait: deferred
Assessment and Plan:
I. Acute right pure motor syndrome. Likely etiology vascular versus neoplastic.
II. Stage IV lung cancer
III. Chronic dysphonia
IV. PE
-Continue Telemetry monitoring
-Repeat CT head without contrast before restarting Eliquis in 1 week from initial presentation
-Continue aspirin 81 mg once a day
-D/c Plavix due to worsening of NIH score
-Lipitor 40 mg QHS.
-PT.
-DVT prophylaxis.
-Hospice service consult.
-Please recall neurology services any questions or concerns
I personally reviewed all radiology and labs along with past medical records pertinent to current medical problems. Total time spent in patient care is 35 minutes.
Thank you for allowing us to participate in the care of this patient. Please do not hesitate to contact us with any questions or concerns
Objective Data
Vital Signs
Temp Pulse Resp BP Pulse Ox
36.4 C 86 16 147/68 98
08/15/24 07:05 08/15/24 07:41 08/15/24 07:41 08/15/24 07:05 08/15/24 07:41
Lab Results
08/15/24 06:24
08/15/24 06:24
PT 17.0 Sec (11.4-14.6) H 08/13/24 12:58
INR 1.35 08/13/24 12:58
APTT 27.1 Sec (23.4-35.0) 08/13/24 12:58
Sodium 135 mmol/L (135-145) 08/15/24 06:24
Potassium 4.6 mmol/L (3.5-5.1) 08/15/24 06:24
BUN 30 mg/dl (7-17) H 08/15/24 06:24
Glucose 149 mg/dl (70-99) H 08/15/24 06:24
Calcium 9.1 mg/dl (8.4-10.2) 08/15/24 06:24
LDL Cholesterol, Calc 95 mg/dl 08/14/24 06:25
Patient Allergies
moxifloxacin [From Avelox] Allergy (Intermediate, Verified 08/13/24 12:22)
Unknown
hydromorphone [From Dilaudid] Allergy (Mild, Verified 08/13/24 12:22)
Rash
codeine Allergy (Verified 08/13/24 12:22)
Nausea / Vomiting
Vital Signs and Labs
-
Vital Signs and Labs:
Vital Signs
Temp Pulse Resp BP Pulse Ox
36.4 C 86 16 147/68 98
08/15/24 07:05 08/15/24 07:41 08/15/24 07:41 08/15/24 07:05 08/15/24 07:41
Lab Results
08/15/24 06:24
08/15/24 06:24
PT 17.0 Sec (11.4-14.6) H 08/13/24 12:58
INR 1.35 08/13/24 12:58
APTT 27.1 Sec (23.4-35.0) 08/13/24 12:58
Sodium 135 mmol/L (135-145) 08/15/24 06:24
Potassium 4.6 mmol/L (3.5-5.1) 08/15/24 06:24
BUN 30 mg/dl (7-17) H 08/15/24 06:24
Glucose 149 mg/dl (70-99) H 08/15/24 06:24
Calcium 9.1 mg/dl (8.4-10.2) 08/15/24 06:24
LDL Cholesterol, Calc 95 mg/dl 08/14/24 06:25
Medications
-
Medications:
Generic Name Dose Route Start Last Admin
Trade Name Freq PRN Reason Stop Dose Admin
Acetaminophen 650 mg 08/13/24 16:46
Acetaminophen 325 Mg Tablet PO 09/10/24 16:45
Q4HPRN PRN
CH, mild pain, or temp >100.4F
Acetaminophen 650 mg 08/13/24 17:40
Acetaminophen 650 Mg Rectal Suppository RECTAL 09/10/24 17:39
Q4HPRN PRN
CH, mild pain, or temp >100.4F
Acetaminophen 1,000 mg 08/14/24 00:00 08/15/24 07:35
Acetaminophen 500 Mg Tablet PO 09/11/24 00:00 1,000 mg
TID EDIE Administration
Albuterol Sulfate 1.25 mg 08/13/24 19:12
Albuterol Nebs 1.25 Mg/3 Ml Ampul INH
R Q6HPRN PRN
sob
Aspirin 81 mg 08/14/24 08:00 08/15/24 07:35
Aspirin 81 Mg Chewable Tablet PO 09/11/24 07:59 81 mg
DAILY EDIE Administration
Atorvastatin Calcium 40 mg 08/13/24 18:56 08/14/24 17:26
Atorvastatin (Lipitor) 40 Mg Tablet PO 09/10/24 18:55 40 mg
QPM EDIE Administration
Clopidogrel Bisulfate 75 mg 08/14/24 08:00 08/15/24 07:35
Clopidogrel 75 Mg Tablet PO 09/11/24 07:59 75 mg
DAILY EDIE Administration
Dexamethasone 2 mg 08/13/24 20:00 08/15/24 07:35
Dexamethasone 2 Mg Tablet PO 09/10/24 19:59 2 mg
BID EDIE Administration
Dextrose 12.5 grams 08/14/24 15:00
Dextrose 50% (0.5 Grams/Ml) 50 Ml Syringe IV 09/11/24 14:59
[id number] PRN
hypoglycemia
Protocol
Gabapentin 100 mg 08/13/24 22:00 08/14/24 21:58
Gabapentin 100 Mg Capsule PO 09/10/24 21:59 100 mg
HS EDIE Administration
Gabapentin 200 mg 08/14/24 08:00 08/15/24 07:35
Gabapentin 100 Mg Capsule PO 09/11/24 07:59 200 mg
DAILY EDIE Administration
Glucagon 1 mg 08/14/24 15:00
Glucagon 1 Mg Vial IM 09/11/24 14:59
PRN PRN
hypoglycemia - no IV access
Protocol
Heparin Sodium 5,000 units 08/14/24 20:00 08/15/24 07:36
Heparin 5,000 Units/Ml 1 Ml Vial SC 09/11/24 19:59 5,000 units
Q12 EDIE Administration
Insulin Aspart 0 units 08/14/24 07:30 08/15/24 08:11
Insulin Aspart Low Resistance 300 Units/3 Ml Pen.Injctr SC 09/11/24 07:29 1 units
AC EDIE Administration
Protocol
Lactobacillus/Bifidobacterium 1 cap 08/14/24 08:00 08/15/24 07:35
Lactobac/Bifidobac (Visbiome) PO 09/11/24 07:59 1 cap
DAILY EDIE Administration
Multivitamins Therapeutic 1 tablet 08/14/24 08:00 08/15/24 07:35
Multivitamin Tablet PO 09/11/24 07:59 1 tablet
DAILY EDIE Administration
Non-Formulary Medication 1 drop 08/13/24 20:00
Lifitegrast [Xiidra] BOTH EYES 09/10/24 19:59
BID EDIE
Olodaterol 2 puff 08/14/24 08:00 08/15/24 07:35
Olodaterol (Striverdi Respimat) 2.5 Mcg Inhaler INH 09/11/24 07:59 2 puff
R DAILY EDIE Administration
Ondansetron HCl 8 mg 08/13/24 19:14
Ondansetron 4 Mg Tablet PO 09/10/24 19:13
[id number] PRN
nausea
Oxycodone HCl 5 mg 08/13/24 22:00 08/15/24 09:08
Oxycodone 5 Mg Regular Release Tablet PO 08/27/24 21:59 5 mg
BID@1000,2200 EDIE Administration
Oxycodone HCl 10 mg 08/13/24 20:00 08/15/24 04:32
Oxycontin 10 Mg Controlled Release Tablet PO 08/27/24 19:59 10 mg
TID@0500,1400,2000 EDIE Administration
Pantoprazole Sodium 40 mg 08/14/24 08:00 08/15/24 07:35
Pantoprazole 40 Mg Delayed Release Tablet PO 09/11/24 07:59 40 mg
DAILY EDIE Administration
Prednisone 10 mg 08/14/24 08:00 08/15/24 07:35
Prednisone 10 Mg Tablet PO 09/11/24 07:59 10 mg
DAILY EDIE Administration
Roflumilast 500 mcg 08/14/24 08:00 08/15/24 07:36
Roflumilast (Daliresp) 500 Mcg Tablet PO 09/11/24 07:59 500 mcg
DAILY EDIE Administration
Sodium Chloride 0 flush 08/13/24 17:00
Sodium Chloride 0.9% (Flush) Syringe IV 09/10/24 16:59
PER PROTOCOL EDIE
Tiotropium Seymour 2 puff 08/14/24 08:00 08/15/24 07:35
Tiotropium (Spiriva Respimat) 2.5 Mcg Inhaler INH 09/11/24 07:59 2 puff
R DAILY EDIE Administration
Home Medications
-
Home Medications
Bifidobacterium infantis 4 mg capsule (Align (B.infantis)) 4 mg PO DAILY Supplement 08/13/24
acetaminophen 500 mg tablet (Tylenol Extra Strength) 1,000 mg PO QID Pain 08/13/24
apixaban 5 mg tablet (Eliquis) 5 mg PO BID Blood Clot Prevention/Tx 08/13/24
dexamethasone 2 mg tablet 2 mg PO BID INFLAMMATION 08/13/24
gabapentin 100 mg capsule 100 mg PO HS NEUROPATHIC PAIN 08/13/24
gabapentin 100 mg capsule 200 mg PO DAILY NEUROPATHIC PAIN 08/13/24
levalbuterol HCl 0.63 mg/3 mL solution for nebulization 0.63 mg inhalation R Q6HPRN PRN sob 08/13/24
lidocaine-prilocaine 2.5 %-2.5 % topical cream 1 applic topical DAILYPRN PRN port 08/13/24
lifitegrast 5 % eye drops in a dropperette (Xiidra) 1 drp BOTH EYES BID DRY EYE 08/13/24
omeprazole 40 mg capsule,delayed release 40 mg PO DAILY GERD 08/13/24
ondansetron HCl 8 mg tablet 8 mg PO [id number] PRN nausea 08/13/24
oxycodone 10 mg tablet,crush resistant,extended release 12 hr (OxyContin) 10 mg PO TID@0500,1400,2000 Pain 08/13/24
oxycodone 5 mg tablet 5 mg PO BID@1000,2200 Pain 08/13/24
prednisone 20 mg tablet 10 mg PO DAILY INFLAMMATION 08/13/24
roflumilast 500 mcg tablet (Daliresp) 500 mcg PO DAILY COPD 08/13/24
therapeutic multivitamin 1 tab PO DAILY Supplement 08/13/24
umeclidinium 62.5 mcg-vilanterol 25 mcg/actuation powdr for inhalation (Anoro Ellipta) 1 inh inhalation R DAILY Lung/Breathing Issues 08/13/24
--- NOTE | 2024-08-15 11:09 | HOSPNOTE ---
Addendum entered by Jacqui Liriano RN 08/15/24 13:38:
Spoke with patient and she is very tearful, the spouse is angry about hospice and feels patient should continue with treatment. The patient feels she can not make the decision about hospice since spouse is so against it. I told spouse to just think
things over today and I am here if she wishes more information. The patient did ask if she could do some rehab here at [facility]. Messaged forwarded to Attending. CM aware.
Original Note:
Spoke with spouse about hospice and at this time they do not wish for hospice. I will speak with patient myself but the patient lives out of our service area. More information to follow.
[2024-08-15 11:35] LABS: Glucose - Point of Care 137 mg/dl (70-99)
--- NOTE | 2024-08-15 12:39 | W.PN.HOSP.TC ---
Today's Communication/Plan
-
Continue high intensity statin and daily aspirin
Discontinue Plavix
Repeat CT head in 1 week
If normal repeat CT head in 1 week then resume Eliquis
Continue neurochecks
Ongoing GOC discussion
Assessment / Plan
Assessment / Plan
#Suspected acute CVA
#Left-sided extremity weakness and paresthesias
-Suspected right-sided lacunar infarct, likely associated with ASCVD and hypertension
-Suspect thrombotic etiology with waxing and waning clinical course since her arrival here
-Symptoms started while receiving chemotherapy, not TNK candidate due to Eliquis use
-CT head on arrival was without ICH or other acute findings, CTA without obstructive atherosclerosis
-Patient states that she recently had a ambulatory heart monitor with cardiology in [facility], was negative
-Neurology following, repeat CT scan after 24 hours normal, recommended to repeat again in 1 week
-Continue aspirin 81 mg and high intensity statin; continue neurochecks
-Repeat CT head without contrast in 1 week, if normal resume Eliquis
#Hypertensive urgency
-Not on any meds for hypertension
-Presented with SBP near 160, resolved without intervention
-Will continue to monitor and consider regimen for SBP goal <150 mmHg
#Leukocytosis due to demargination
#Hyperglycemia due to steroid use
-Patient is on chronic steroid with prednisone 10 mg daily and dexamethasone 2 mg twice daily
-Blood sugars here have been fairly well-controlled and <200 over 3 lab draws
-Will add on low resistance ISS with Accu-Cheks and monitor for now
-Trend CBC + temp, POC glucose
#Stage IVb NSCLC
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
#Former smoker
-Currently on third line chemotherapy with gemcitabine after recent signs of progression on second line
-Was initially on carbo/pemetrexed with Keytruda, subsequently on Ktazdi (which caused pneumonitis)
-Current regimen also includes chronic immunosuppression with prednisone 10 AM and decadron 2 BID
-Follows with [facility], previously received treatment at [facility]
#Dyslipidemia
-No known ASCVD history previously; LDL here 95
-Previously on Lipitor which was stopped [employer]
-Placed back onto high intensity statin due to likely CVA
#GERD
-Home regimen includes daily omeprazole
-No known history of erosive esophagitis or Yarbrough's esophagus
#Chronic pain on opiates
-Secondary to cancer related issues, has multifactorial pain
-Home regimen includes gabapentin for neuropathic pain, oxycodone for somatic pain
Added on heating pad as requested by patient
#COPD without exacerbation
-No PFTs to review; Home regimen includes Roflumilast, Anoro Ellipta, prednisone/dex, PRN lev albuterol
-Suspect advanced ages with likely gold C to D classification
-No signs of exacerbation at this time, no O2 at baseline
#Dry eye syndrome
-Continue's Xiidra eyedrop
#H/O pulmonary embolism (2023)
-Suspect this is provoked from her metastatic cancer
-Home medications include Eliquis 5 mg twice daily
-Holding Eliquis for now at neurology's recommendation, on DAPT instead
-Likely will need to go back on Eliquis for chronic VTE risk, even more so if occult AF/AFL found
Diet: Cholesterol-lowering
DVT prophylaxis: SQ heparin
CODE STATUS: Full code
Disposition: Patient stated this morning that she wanted hospice. Consult placed, has been recommended to pursue hospice in the past while at [facility]. Reportedly refused at that time and elected to continue therapy at [facility]. Was receiving infusions there at time her most recent CVA presented
Anticipated Discharge: > 48 hours
Subjective/Interval History
-
Date of Service: August 15, 2024
Seen and examined at the bedside. No acute events reported overnight. AFVSS this morning
Continues to have left upper and lower extremity weakness. Was very careful at time of my eval, stating she wanted hospice and did not want to go through this
Labs are otherwise stable. She denies any other new medical complaints.
Objective Data
-
Labs:
Laboratory Results
08/15/24
06:24
WBC 6.8
Hgb 12.3
Hct 37.1
Plt Count 228
Sodium 135
Potassium 4.6
Chloride 101
Carbon Dioxide 26
BUN 30 H
Creatinine 0.5 L
Glucose 149 H
Calcium 9.1
Vital Signs:
Vital Signs
Temp Pulse Resp BP Pulse Ox
98.0 F 82 17 126/74 97
08/15/24 11:02 08/15/24 11:02 08/15/24 11:02 08/15/24 11:02 08/15/24 11:02
I&O
08/14/24 08/15/24 08/16/24
06:59 06:59 06:59
Intake Total 720 / 720
Output Total 150 / 150 300 / 300 300 / 300
Balance -150 / -150 420 / 420 -300 / -300
Review of Systems
-
History Source: Patient
All other systems: Reviewed and negative
Physical Exam
-
General: Well Developed, Well Nourished and Appears Chronically Ill
HEENT: Normocephalic, Atraumatic, Moist Mucous Membranes, Anicteric and PERRLA
Respiratory: Clear to Auscultation and Non Labored Respirations; Negative Accessory Resp Muscle Use
Cardiac: Regular Rhythm and S1/S2; Negative Murmur, Rub or Gallop
GI: Soft, Nontender, Nondistended and Normal Bowel Sounds
Musculoskeletal: No Clubbing, No Cyanosis and No Edema
Skin: Warm and Dry; Negative Rash
Neuro: AO x 3, Central Nerve's Intact, No Sensory Deficits and Other (Profound weakness of LUE (2/5) and LLE (1/5)); Negative Tremors or Slurred Speech
Psych: Depressed and Anxious
Data Reviewed
-
CT Scan: Report Reviewed by me and Discussed with Physician (Neurologist)
Labs: Labs Reviewed by me and Discussed with Patient
[2024-08-15] MEDS: ATIVAN 1 MG PO ×2 (13:31→20:06)
--- NOTE | 2024-08-15 14:00 | CM ---
CM consult completed for hospice
tt Keya Liriano (see note)
PT rec acute rehab
patient agreeable to [facility]
referral placed in [facility]
will need to obtain auth
PLAN: Acute Rehab, declined hospice currenty
[2024-08-15 16:31] LABS: Glucose - Point of Care 198 mg/dl (70-99)
[2024-08-15] MEDS: LIPITOR 40 MG PO (17:53)
[2024-08-15 21:30] LABS: Glucose - Point of Care 180 mg/dl (70-99)
[2024-08-15] MEDS: NEURONTIN 100 MG PO (22:26)
[2024-08-16] VITALS (7 sets, daily range): BP systolic 114–142; BP diastolic 22–84; PULSE 102–115
[2024-08-16] MEDS: OXYCONTIN (CONTROLLED RELEASE) 10 MG PO ×3 (05:22→20:36)
[2024-08-16 07:08] LABS: Hemoglobin 11.8 g/dL (12.0-16.0); Mean Corp Hgb Conc. 33.7 g/dL (33.0-37.0); Mean Corpuscular Hgb 28.4 pg (27.0-31.0); Mean Corpuscular Volume 84.3 fL (81.0-99.0); Mean Platelet Volume 9.8 fL (7.4-10.4); Platelet Count 216 10^3/uL (130-400); Red Blood Cell Count 4.15 10^6/uL (4.20-5.40); Red Cell Dist. Width 18.1 % (11.5-14.5); White Blood Cell Count 2.6 10^3/uL (4.8-10.8)
[2024-08-16 07:12] LABS: Blood Urea Nitrogen 34 mg/dl (7-17); Calcium 9.5 mg/dl (8.4-10.2); Carbon Dioxide 26 mmol/L (22-30); Chloride 100 mmol/L (98-107); Estimated Creatinine Clearance 62 ml/min; Glucose 150 mg/dl (70-99); Potassium 4.8 mmol/L (3.5-5.1); Sodium 133 mmol/L (135-145); eGFR > 60.00
[2024-08-16] MEDS: STRIVERDI RESPIMAT 2 PUFF INH (07:46)
[2024-08-16] MEDS: SPIRIVA RESPIMAT 2.5 MCG 2 PUFF INH (07:46)
[2024-08-16 07:52] LABS: Glucose - Point of Care 138 mg/dl (70-99)
[2024-08-16] MEDS: NOVOLOG FLEXPEN-LOW RESISTANCE SC (07:59)
[2024-08-16 08:13] LABS: % Eosinophils 0.4 % (0-6); % Immature Granulocytes 0.4 % (0-0.5); % Lymphocytes 9.2 % (20.5-51.1); % Monocytes 2.7 % (1.7-9.3); % Neutrophils 87.3 % (42.2-75.2); Absolute Lymphocytes 0.2 10^3/uL (1.2-3.4); Absolute Monocytes 0.1 10^3/uL (0.1-0.6); Absolute Neutrophils 2.3 10^3/uL (1.4-6.5); Nucleated Red Blood Cells % 0 %
[2024-08-16] MEDS: DALIRESP 500 MCG PO (09:03)
[2024-08-16] MEDS: LOW STRENGTH ASPIRIN 81 MG PO (09:04)
[2024-08-16] MEDS: TYLENOL 1000 MG PO ×3 (09:04→21:15)
[2024-08-16] MEDS: DELTASONE 10 MG PO (09:04)
[2024-08-16] MEDS: VISBIOME 1 CAP PO (09:04)
[2024-08-16] MEDS: THERAGRAN 1 TABLET PO (09:04)
[2024-08-16] MEDS: PROTONIX 40 MG PO (09:04)
[2024-08-16] MEDS: DECADRON 2 MG PO ×2 (09:04→20:37)
[2024-08-16] MEDS: HEPARIN 5000 UNITS SC ×2 (09:05→20:37)
[2024-08-16] MEDS: NEURONTIN 200 MG PO (09:05)
[2024-08-16] MEDS: ROXICODONE 5 MG PO ×2 (09:13→21:15)
[2024-08-16 11:43] LABS: Glucose - Point of Care 174 mg/dl (70-99)
--- NOTE | 2024-08-16 12:31 | W.PN.HOSP.TC ---
Today's Communication/Plan
-
Continue aspirin and statin
Repeat CT head in 1 week
Resume Eliquis in [address] head without bleeding
Physiatry evaluation
Psychiatry evaluation
Assessment / Plan
Assessment / Plan
#Suspected acute CVA
#Left-sided extremity weakness and paresthesias
-Suspected right-sided lacunar infarct, likely associated with ASCVD and hypertension
-Suspect thrombotic etiology with waxing and waning clinical course since her arrival here
-Symptoms started while receiving chemotherapy, not TNK candidate due to Eliquis use
-CT head on arrival was without ICH or other acute findings, CTA without obstructive atherosclerosis
-Patient states that she recently had a ambulatory heart monitor with cardiology in [facility], was negative
-Neurology following, repeat CT scan after 24 hours normal, recommended to repeat again in 1 week
-Continue aspirin 81 mg and high intensity statin; continue neurochecks
-Repeat CT head without contrast in 1 week (08/21), if normal resume Eliquis
#Hypertensive urgency
-Not on any meds for hypertension
-Presented with SBP near 160, resolved without intervention
-Will continue to monitor and consider regimen for SBP goal <150 mmHg
#Leukocytosis due to demargination
#Hyperglycemia due to steroid use
-Patient is on chronic steroid with prednisone 10 mg daily and dexamethasone 2 mg twice daily
-Blood sugars here have been fairly well-controlled and <200 over 3 lab draws
-Will add on low resistance ISS with Accu-Cheks and monitor for now
-Trend CBC + temp, POC glucose
#Stage IVb NSCLC
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
#Former smoker
-Currently on third line chemotherapy with gemcitabine after recent signs of progression on second line
-Was initially on carbo/pemetrexed with Keytruda, subsequently on Ktazdi (which caused pneumonitis)
-Current regimen also includes chronic immunosuppression with prednisone 10 AM and decadron 2 BID
-Follows with [facility], previously received treatment at [facility]
#Dyslipidemia
-No known ASCVD history previously; LDL here 95
-Previously on Lipitor which was stopped [employer]ACH[employer]
-Placed back onto high intensity statin due to likely CVA
#GERD
-Home regimen includes daily omeprazole
-No known history of erosive esophagitis or Yarbrough's esophagus
#Chronic pain on opiates
-Secondary to cancer related issues, has multifactorial pain
-Home regimen includes gabapentin for neuropathic pain, oxycodone for somatic pain
Added on heating pad as requested by patient
#COPD without exacerbation
-No PFTs to review; Home regimen includes Roflumilast, Anoro Ellipta, prednisone/dex, PRN lev albuterol
-Suspect advanced ages with likely gold C to D classification
-No signs of exacerbation at this time, no O2 at baseline
#Dry eye syndrome
-Continue's Xiidra eyedrop
#H/O pulmonary embolism (2023)
-Suspect this is provoked from her metastatic cancer
-Home medications include Eliquis 5 mg twice daily
-Planning to resume Eliquis in [address] head normal on repeat
#Depression
-Patient has been very tearful related to her new neurologic deficit
-Psychiatry consulted for further guidance
Diet: Cholesterol-lowering
DVT prophylaxis: SQ heparin
CODE STATUS: Full code
Disposition: Recommended acute rehab, physiatry consulted
Anticipated Discharge: 24 - 48 hours
Subjective/Interval History
-
Date of Service: August 16, 2024
Seen and examined at the bedside. Overnight she developed some diarrhea, C. difficile was checked. AFVSS this morning
C. difficile remains pending. Patient states she still has some diarrhea. Denies abdomen pain or fevers and chills.
White cell count down from 4.5-2.6. Remainder of labs stable.
Objective Data
-
Labs:
Laboratory Results
08/16/24
06:15
WBC 2.6 L
Hgb 11.8 L
Hct 35.0 L
Plt Count 216
Sodium 133 L
Potassium 4.8
Chloride 100
Carbon Dioxide 26
BUN 34 H
Creatinine 0.5 L
Glucose 150 H
Calcium 9.5
Vital Signs:
Vital Signs
Temp Pulse Resp BP Pulse Ox
97.4 F 85 18 128/67 98
08/16/24 11:05 08/16/24 11:05 08/16/24 11:05 08/16/24 11:05 08/16/24 11:05
I&O
08/15/24 08/16/24 08/17/24
06:59 06:59 06:59
Intake Total 720 / 720 1020 / 1020
Output Total 300 / 300 300 / 300
Balance 420 / 420 720 / 720
Review of Systems
-
History Source: Patient
All other systems: Reviewed and negative
Physical Exam
-
General: Well Developed, Well Nourished, No Apparent Distress and Appears Chronically Ill
HEENT: Normocephalic, Atraumatic, Moist Mucous Membranes and Anicteric
Respiratory: Clear to Auscultation and Non Labored Respirations; Negative Accessory Resp Muscle Use
Cardiac: Regular Rhythm and S1/S2; Negative Murmur, Rub or Gallop
GI: Soft, Nontender, Nondistended and Normal Bowel Sounds; Negative Organomegaly
Musculoskeletal: No Clubbing, No Cyanosis and No Edema
Skin: Warm, Dry and Normal Turgor; Negative Rash
Neuro: AO x 3 and Other (Flaccid paresis to LUE and LLE, otherwise nonfocal with intact cranial nerves)
Psych: Depressed
Data Reviewed
-
Labs: Labs Reviewed by me, Discussed with Physician (Neurologist) and Discussed with Patient
[2024-08-16] MEDS: NOVOLOG FLEXPEN-LOW RESISTANCE 1 UNITS SC ×2 (14:14→17:16)
--- NOTE | 2024-08-16 15:07 | CON.MD ---
Addendum entered and electronically signed by Mike Oropeza MD 08/22/24 15:43:
note this consult done on 08/16/2024
Addendum entered and electronically signed by Mike Oropeza MD 08/16/24 15:41:
patient would like to talk to [facility] cane furniture maker. cane furniture maker office notified (left message)
Original Note:
Consultation - Medical
-
patient seen chart reviewed. initially at bedside then left to get patient a milkshake. patient is an 79 year old woman dx with metastatic lung ca. she was receiving an infusion of her chemo and noted weakness on her left side. she was tf
from [facility] to by ambulance and is being rx for stroke. this consult ordered for depression. patient has no hx depression but she freely admits to depressed mood since her cancer dx. she was initially told she had but weeks to live but upon
further consultation was told 'Maybe a year' or some months more. 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 she immediately thought she would want to rather
than live with severe physical impairment . at this moment she is not sure what she would like to do but says if she were to go to rehab it would need to be acute rehab bc she understands what 'subacute' really stands for ...in her words 'fifteen
minutes a day' of therapy. she would consider hospice if she felt there were no hope for her to recover eg 'my left hand'. she has no hx of depression or anxiety prior to dx of cancer. she has always been the person who helped others and now it
pains her to think she will need to be on the receiving end of help. her she fears would not support her wish for hospice should she decide upon refusing further care. she is not suicidal. she seems to me to have a good sense of what she
is up against at this point. she also points to the stress of being rx locally here which is far from home and wonders if rx in the [facility] would be easier for her and to get to. (maybe [facility] she suggests instead of
[facility].)
past psych hx none
past med hx see above small cell metastatic lung ca being rx at [facility]. patient has hx painful arthritis and is opiate dependent. she is also taking gabapentin for pain . cat scan of brain shows mild atrophy and small vessel disease. hld.
patient states statins stopped w chemo. severe dry eyes gerd copd 50 pack year smoker quit ten years ago qtc 482 pac's otherwise nl sodium 133 had been 135
fh adopted she does now know fh
substance abuse none
social resides w h. 46 years three kids estranged from two. i did now ask her why as she is in enough pain. she is in touch w one of her kids but it sounds like only recently. is supportive but my impression from her is that can
be a conflicted relationship. she had a good childhood. [place] and parents were good to her. she had a very small family tolowa dee-ni'. she has no sibs. 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
mse alert ox3 frail appearance cooperative and i would say almost eager to share her pain. speech and thought process nl mood is depressed affect appropriate no si aver intell insight judgment ok
dx unspecified depression
recommendations patient is clearly very depressed and was tearful throughout. she is understandably overwhelmed . she agreed readily to taking an antidep if there was a chance it would help and it might although not immediately. given low serum
sodium will start remeron 7.5 mg daily which is less likely to further dec sodium but will need to monitor. should inc as tolerated depending on result. would reduce ativan prn to o.5 mg as she c/o being very sleeping which is also likely due to
debility of illness. patient would benefit from supportive therapy. she will need to think about whether hospice would be the road for her and to have someone to talk it out with could be helpful. i will ask her if she would like to speak w
cane furniture maker too. psych will follow
--- NOTE | 2024-08-16 16:28 | CM ---
Chart reviewed and referral sent to [facility] for skilled placement, Needs PM&R evaluation for acute rehab.
Plan; To follow up with [facility] acute rehab at [facility].
[2024-08-16] MEDS: LIPITOR 40 MG PO (17:15)
[2024-08-16 17:17] LABS: Glucose - Point of Care 183 mg/dl (70-99)
[2024-08-16] MEDS: ATIVAN 0.5 MG PO (17:21)
[2024-08-16 20:45] LABS: Glucose - Point of Care 226 mg/dl (70-99)
[2024-08-16] MEDS: REMERON 7.5 MG PO (21:15)
[2024-08-16] MEDS: NEURONTIN 100 MG PO (21:15)
[2024-08-17] VITALS (7 sets, daily range): BP systolic 115–154; BP diastolic 72–99; PULSE 108
[2024-08-17] MEDS: OXYCONTIN (CONTROLLED RELEASE) 10 MG PO ×3 (05:03→20:23)
[2024-08-17] MEDS: STRIVERDI RESPIMAT 2 PUFF INH (07:51)
[2024-08-17] MEDS: SPIRIVA RESPIMAT 2.5 MCG 2 PUFF INH (07:51)
[2024-08-17 08:54] LABS: Glucose - Point of Care 147 mg/dl (70-99)
[2024-08-17] MEDS: NOVOLOG FLEXPEN-LOW RESISTANCE SC (09:02)
[2024-08-17] MEDS: HEPARIN 5000 UNITS SC ×2 (09:03→20:23)
[2024-08-17] MEDS: PROTONIX 40 MG PO (09:06)
[2024-08-17] MEDS: THERAGRAN 1 TABLET PO (09:06)
[2024-08-17] MEDS: VISBIOME 1 CAP PO (09:06)
[2024-08-17] MEDS: LOW STRENGTH ASPIRIN 81 MG PO (09:06)
[2024-08-17] MEDS: ROXICODONE 5 MG PO ×2 (09:06→21:23)
[2024-08-17] MEDS: TYLENOL 1000 MG PO ×3 (09:07→21:23)
[2024-08-17] MEDS: NEURONTIN 200 MG PO (09:07)
[2024-08-17] MEDS: DELTASONE 10 MG PO (09:07)
[2024-08-17] MEDS: DALIRESP 500 MCG PO (09:19)
[2024-08-17] MEDS: DECADRON 2 MG PO ×2 (09:19→20:23)
[2024-08-17 09:53] LABS: Hemoglobin 12.4 g/dL (12.0-16.0); Mean Corp Hgb Conc. 33.5 g/dL (33.0-37.0); Mean Corpuscular Hgb 28.4 pg (27.0-31.0); Mean Corpuscular Volume 84.9 fL (81.0-99.0); Mean Platelet Volume 10.5 fL (7.4-10.4); Platelet Count 267 10^3/uL (130-400); Red Blood Cell Count 4.36 10^6/uL (4.20-5.40); Red Cell Dist. Width 18.1 % (11.5-14.5); White Blood Cell Count 1.7 10^3/uL (4.8-10.8)
[2024-08-17 10:11] LABS: Blood Urea Nitrogen 40 mg/dl (7-17); Calcium 9.4 mg/dl (8.4-10.2); Carbon Dioxide 26 mmol/L (22-30); Chloride 100 mmol/L (98-107); Estimated Creatinine Clearance 62 ml/min; Glucose 151 mg/dl (70-99); Potassium 4.6 mmol/L (3.5-5.1); Sodium 133 mmol/L (135-145); eGFR > 60.00
--- NOTE | 2024-08-17 10:17 | W.PN.UPDATE ---
Update Note
Progress Note Update
Patient states she feels less depressed but her affect is restricted and she is very lethargic. who was with her is very helpful with cheering her up.
She denies hopelessness or suicidal thoughts.
For now I would continue the Remeron 7.5 mg hs.
Discussed practicing mindfulness.
[2024-08-17 11:45] LABS: Absolute Neutrophils -Man Diff 1.4 10^3/uL (1.4-6.5); Band Neutrophils 21 % (0-3); Eosinophils 1 % (0-6); Lymphocytes 9 % (20-51); Monocytes 2 % (2-9); Segmented Neutrophils 65 % (42-75)
[2024-08-17 11:46] LABS: Metamyelocytes 2 % (-)
[2024-08-17 11:49] LABS: Normal RBC Morphology Yes; Platelets Checked Yes; Total Cells Counted 100
[2024-08-17 11:49] LABS: Glucose - Point of Care 160 mg/dl (70-99)
[2024-08-17 11:59] LABS: Folate 14.2 ng/ml (2.76-20); Vitamin B12 1000 pg/ml (239-931)
--- NOTE | 2024-08-17 13:10 | W.PN.HOSP.TC ---
Today's Communication/Plan
-
Physiatry consult pending
Continue aspirin and statin
Hold Eliquis
Repeat CT head on 08/21
Trend CBC
Assessment / Plan
Assessment / Plan
#Suspected acute CVA
#Left-sided extremity weakness and paresthesias
-Suspected right-sided lacunar infarct, likely associated with ASCVD and hypertension
-Suspect thrombotic etiology with waxing and waning clinical course since her arrival here
-Symptoms started while receiving chemotherapy, not TNK candidate due to Eliquis use
-CT head on arrival was without ICH or other acute findings, CTA without obstructive atherosclerosis
-Patient states that she recently had a ambulatory heart monitor with cardiology in [facility], was negative
-Neurology following, repeat CT scan after 24 hours normal, recommended to repeat again in 1 week
-Continue aspirin 81 mg and high intensity statin; continue neurochecks
-Repeat CT head without contrast in 1 week (08/21), if normal resume Eliquis
#Leukopenia
-Initially had leukocytosis likely related to demargination from chronic steroid, white count now down to 1.7
-Absolute neutrophil count 1.4, not currently on neutropenic precautions, no fever
-Will continue to trend CBC and ANC, start neutropenic precautions
-Consider hematology consult if continuing to worsen
#Heme positive stool
-Had loose bowel movement that was heme positive this morning though also mixed with urine
-Hemoglobin here is up trended from 11.8 yesterday to 12.4 as of 08/17/2024
-Suspected this could be a hemorrhoidal bleed versus mild hematuria
-Will continue to monitor and trend CBC
#Hypertensive urgency
-Not on any meds for hypertension
-Presented with SBP near 160, resolved without intervention
-Will continue to monitor and consider regimen for SBP goal <150 mmHg
#Hyperglycemia due to steroid use
-Patient is on chronic steroid with prednisone 10 mg daily and dexamethasone 2 mg twice daily
-Blood sugars here have been fairly well-controlled and <200 over 3 lab draws
-Will add on low resistance ISS with Accu-Cheks and monitor for now
-Trend POC glucose
#Stage IVb NSCLC
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
#Former smoker
-Currently on third line chemotherapy with gemcitabine after recent signs of progression on second line
-Was initially on carbo/pemetrexed with Keytruda, subsequently on Ktazdi (which caused pneumonitis)
-Current regimen also includes chronic immunosuppression with prednisone 10 AM and decadron 2 BID
-Follows with [facility], previously received treatment at [facility]
#Dyslipidemia
-No known ASCVD history previously; LDL here 95
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
-Placed back onto high intensity statin due to likely CVA
#GERD
-Home regimen includes daily omeprazole
-No known history of erosive esophagitis or Yarbrough's esophagus
#Chronic pain on opiates
-Secondary to cancer related issues, has multifactorial pain
-Home regimen includes gabapentin for neuropathic pain, oxycodone for somatic pain
Added on heating pad as requested by patient
#COPD without exacerbation
-No PFTs to review; Home regimen includes Roflumilast, Anoro Ellipta, prednisone/dex, PRN lev albuterol
-Suspect advanced ages with likely gold C to D classification
-No signs of exacerbation at this time, no O2 at baseline
#Dry eye syndrome
-Continue's Xiidra eyedrop
#H/O pulmonary embolism (2023)
-Suspect this is provoked from her metastatic cancer
-Home medications include Eliquis 5 mg twice daily
-Planning to resume Eliquis in [address] head normal on repeat
#Depression
-Patient has been very tearful related to her new neurologic deficit
-Psychiatry consulted for further guidance
Diet: Cholesterol-lowering
DVT prophylaxis: SQ heparin
CODE STATUS: Full code
Disposition: Recommended acute rehab, physiatry consulted
Anticipated Discharge: > 48 hours
Subjective/Interval History
-
Date of Service: August 17, 2024
Seen and examined at the bedside. No acute events reported overnight. AFVSS as of this morning
Nursing reported heme positive stool, however mixed with urine. Hemoglobin uptrending. C. difficile testing unable to be sent
She states that she is scared this morning, in regards to her inability to move her extremities. Psychiatry following, physiatry consulted
Objective Data
-
Labs:
Laboratory Results
08/17/24
07:05
WBC 1.7 L*
Hgb 12.4
Hct 37.0
Plt Count 267 D
Sodium 133 L
Potassium 4.6
Chloride 100
Carbon Dioxide 26
BUN 40 H
Creatinine 0.6
Glucose 151 H
Calcium 9.4
Vital Signs:
Vital Signs
Temp Pulse Resp BP Pulse Ox
97.4 F 114 17 154/99 98
08/17/24 11:54 08/17/24 11:54 08/17/24 11:54 08/17/24 11:54 08/17/24 11:54
I&O
08/16/24 08/17/24 08/18/24
06:59 06:59 06:59
Intake Total 1020 / 1020 960 / 960
Output Total 300 / 300
Balance 720 / 720 960 / 960
Review of Systems
-
History Source: Patient
All other systems: Reviewed and negative
Physical Exam
-
General: Well Developed, Well Nourished and Appears Chronically Ill
HEENT: Normocephalic, Atraumatic, Moist Mucous Membranes and Anicteric
Respiratory: Clear to Auscultation and Non Labored Respirations
Cardiac: Regular Rhythm and S1/S2; Negative Murmur, Rub or Gallop
GI: Soft, Nontender, Nondistended and Normal Bowel Sounds
Musculoskeletal: No Clubbing, No Cyanosis and No Edema
Skin: Warm and Dry; Negative Rash
Neuro: AO x 3, Central Nerve's Intact and Other (Flaccid paresis to the left extremities)
Psych: Calm and Depressed
Data Reviewed
-
Labs: Labs Reviewed by me, Discussed with Nurse, Discussed with Patient and Discussed with Family
[2024-08-17] MEDS: NOVOLOG FLEXPEN-LOW RESISTANCE 1 UNITS SC (13:51)
--- NOTE | 2024-08-17 15:27 | CHAP ---
Received request through voicemail from nursing for a staffing branch manager visit. Lydia was very discouraged, now having 'two things,' as she put it, to deal with. She said she feels 'scared.' Her was present - he is enthusiastic about the prospect
of rehab for her. Lydia welcomed prayer and became tearful as we offered supplication. Emotional and spiritual support provided, along with a prayer blanket.
[2024-08-17 16:33] LABS: Glucose - Point of Care 232 mg/dl (70-99)
[2024-08-17] MEDS: NOVOLOG FLEXPEN-LOW RESISTANCE 2 UNITS SC (17:48)
[2024-08-17] MEDS: LIPITOR 40 MG PO (17:48)
[2024-08-17] MEDS: NEURONTIN 100 MG PO (21:23)
[2024-08-17] MEDS: REMERON 7.5 MG PO (21:23)
[2024-08-17 21:49] LABS: Glucose - Point of Care 201 mg/dl (70-99)
[2024-08-18 03:39] VITALS: BP 135/81
[2024-08-18] MEDS: OXYCONTIN (CONTROLLED RELEASE) 10 MG PO ×3 (05:04→19:47)
[2024-08-18 07:25] VITALS: BP 130/84
[2024-08-18] MEDS: STRIVERDI RESPIMAT 2 PUFF INH (07:47)
[2024-08-18] MEDS: SPIRIVA RESPIMAT 2.5 MCG 2 PUFF INH (07:47)
[2024-08-18 07:51] LABS: Glucose - Point of Care 186 mg/dl (70-99)
[2024-08-18 08:20] LABS: Hematocrit 38.7 % (37.0-47.0); Hemoglobin 13.1 g/dL (12.0-16.0); Mean Corp Hgb Conc. 33.9 g/dL (33.0-37.0); Mean Corpuscular Hgb 28.7 pg (27.0-31.0); Mean Corpuscular Volume 84.9 fL (81.0-99.0); Mean Platelet Volume 10.8 fL (7.4-10.4); Platelet Count 229 10^3/uL (130-400); Red Blood Cell Count 4.56 10^6/uL (4.20-5.40); Red Cell Dist. Width 18.3 % (11.5-14.5); White Blood Cell Count 2.4 10^3/uL (4.8-10.8)
[2024-08-18 08:44] LABS: Blood Urea Nitrogen 54 mg/dl (7-17); Calcium 9.6 mg/dl (8.4-10.2); Carbon Dioxide 24 mmol/L (22-30); Chloride 101 mmol/L (98-107); Estimated Creatinine Clearance 53 ml/min; Glucose 194 mg/dl (70-99); Sodium 135 mmol/L (135-145); eGFR > 60.00
[2024-08-18] MEDS: NSS 1000 IV ×2 (09:32→21:20)
[2024-08-18] MEDS: TYLENOL 1000 MG PO ×3 (09:33→21:21)
[2024-08-18] MEDS: NEURONTIN 200 MG PO (09:34)
[2024-08-18] MEDS: LOW STRENGTH ASPIRIN 81 MG PO (09:34)
[2024-08-18] MEDS: THERAGRAN 1 TABLET PO (09:34)
[2024-08-18] MEDS: VISBIOME 1 CAP PO (09:34)
[2024-08-18] MEDS: PROTONIX 40 MG PO (09:34)
[2024-08-18] MEDS: DELTASONE 10 MG PO (09:34)
[2024-08-18] MEDS: HEPARIN 5000 UNITS SC ×2 (09:39→19:47)
[2024-08-18] MEDS: DALIRESP 500 MCG PO (09:39)
[2024-08-18] MEDS: DECADRON 2 MG PO ×2 (09:39→19:47)
[2024-08-18] MEDS: ROXICODONE 5 MG PO ×2 (09:39→21:20)
[2024-08-18] MEDS: NOVOLOG FLEXPEN-LOW RESISTANCE 1 UNITS SC ×2 (09:42→11:52)
[2024-08-18 10:12] LABS: Absolute Neutrophils -Man Diff 1.7 10^3/uL (1.4-6.5); Band Neutrophils 15 % (0-3); Nucleated Red Blood Cells % 0.8 %; Segmented Neutrophils 59 % (42-75)
[2024-08-18 10:13] LABS: Anisocytosis 1+; Lymphocytes 11 % (20-51); Metamyelocytes 5 % (-); Monocytes 6 % (2-9); Myelocytes 4 % (-); Normal RBC Morphology No; Platelets Checked Yes
[2024-08-18 10:14] LABS: Total Cells Counted 100
[2024-08-18 10:15] LABS: Ovalocytes Slight
[2024-08-18 11:03] VITALS: BP 141/88
[2024-08-18 11:40] LABS: Glucose - Point of Care 190 mg/dl (70-99)
--- NOTE | 2024-08-18 12:19 | W.PN.HOSP.TC ---
Today's Communication/Plan
-
CT A/P with IV contrast
Trend CBC
Continue aspirin and statin
Repeat CTH on 08/21
Hold DOAC pending repeat CT head
PT/OT/physiatry and AIR planning
Assessment / Plan
Assessment / Plan
#Suspected acute CVA
#Left-sided extremity weakness and paresthesias
-Suspected right-sided lacunar infarct, likely associated with ASCVD and hypertension
-Symptoms started while receiving chemotherapy, not TNK candidate due to Eliquis use
-CT head on arrival was without ICH or other acute findings, CTA without obstructive atherosclerosis
-Patient unable to have MRI due to severe claustrophobia; status post normal loop recorder at [facility]
-Neurology following, no acute findings on 2 CTs of the head over 36-hour duration
-Continue aspirin 81 mg and high intensity statin; continue neurochecks
-Repeat CT head without contrast in 1 week (08/21), if normal resume Eliquis
#LGIB with abdomen pain
-Differential diagnosis include diverticulitis versus ischemic colitis versus infection
-Multiple bowel movements with on 08/17 with signs of blood, heme positive
-Hemoglobin has remained stable to uptrending, most recently 13.1
-Developed mild LLQ tenderness on 08/18
-Order CT A/P with IV contrast
-Trend CBC, temperature curve, Abd exam
#Leukopenia
-Initially had leukocytosis likely related to demargination from chronic steroid, white count now down to 1.7
-Absolute neutrophil count 1.4, not currently on neutropenic precautions, no fever
-Will continue to trend CBC and ANC; has started to improve as of 08/18
-Consider hematology consult if continuing to worsen
#Hypertensive urgency
-Not on any meds for hypertension
-Presented with SBP near 160, resolved without intervention
-Will continue to monitor and consider regimen for SBP goal <150 mmHg
#Hyperglycemia due to steroid use
-Patient is on chronic steroid with prednisone 10 mg daily and dexamethasone 2 mg twice daily
-Blood sugars here have been fairly well-controlled and <200 over 3 lab draws
-Will add on low resistance ISS with Accu-Cheks and monitor for now
-Trend POC glucose
#Stage IVb NSCLC
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
#Former smoker
-Currently on third line chemotherapy with gemcitabine after recent signs of progression on second line
-Was initially on carbo/pemetrexed with Keytruda, subsequently on Ktazdi (which caused pneumonitis)
-Current regimen also includes chronic immunosuppression with prednisone 10 AM and decadron 2 BID
-Follows with [facility], previously received treatment at [facility]
#Dyslipidemia
-No known ASCVD history previously; LDL here 95
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
-Placed back onto high intensity statin due to likely CVA
#GERD
-Home regimen includes daily omeprazole
-No known history of erosive esophagitis or Yarbrough's esophagus
#Chronic pain on opiates
-Secondary to cancer related issues, has multifactorial pain
-Home regimen includes gabapentin for neuropathic pain, oxycodone for somatic pain
Added on heating pad as requested by patient
#COPD without exacerbation
-No PFTs to review; Home regimen includes Roflumilast, Anoro Ellipta, prednisone/dex, PRN lev albuterol
-Suspect advanced ages with likely gold C to D classification
-No signs of exacerbation at this time, no O2 at baseline
#Dry eye syndrome
-Continue's Xiidra eyedrop
#H/O pulmonary embolism (2023)
-Suspect this is provoked from her metastatic cancer
-Home medications include Eliquis 5 mg twice daily
-Planning to resume Eliquis in [address] head normal on repeat
#Depression
-Patient has been very tearful related to her new neurologic deficit
-Psychiatry consulted for further guidance
Diet: Cholesterol-lowering
DVT prophylaxis: SQ heparin
CODE STATUS: Full code
Disposition: Recommended acute rehab, physiatry consulted
Anticipated Discharge: > 48 hours
Subjective/Interval History
-
Date of Service: August 18, 2024
Seen and examined at the bedside. No acute events reported overnight. AFVSS this morning
Yesterday had some blood noted in stool, 1 clot seen later in the day. Hemoglobin stable to uptrending. Denies history of hemorrhoids or diverticulosis
As of this morning has mild LLQ tenderness. Remains with weakness in LLE >LUE. Remains depressed
Objective Data
-
Labs:
Laboratory Results
08/18/24
07:18
WBC 2.4 L*
Hgb 13.1
Hct 38.7
Plt Count 229
Sodium 135
Potassium 5.0
Chloride 101
Carbon Dioxide 24
BUN 54 H
Creatinine 0.7
Glucose 194 H
Calcium 9.6
Vital Signs:
Vital Signs
Temp Pulse Resp BP Pulse Ox
97.8 F 110 18 141/88 95
08/18/24 11:03 08/18/24 11:03 08/18/24 11:03 08/18/24 11:03 08/18/24 11:03
I&O
08/17/24 08/18/24 08/19/24
06:59 06:59 06:59
Intake Total 960 / 960 240 / 240
Balance 960 / 960 240 / 240
Review of Systems
-
History Source: Patient
All other systems: Reviewed and negative
Physical Exam
-
General: Well Developed, Well Nourished, No Apparent Distress and Appears Chronically Ill
HEENT: Normocephalic, Atraumatic, Moist Mucous Membranes and Anicteric
Respiratory: Clear to Auscultation and Non Labored Respirations; Negative Accessory Resp Muscle Use
Cardiac: Regular Rhythm and S1/S2; Negative Murmur, Rub or Gallop
GI: Soft, Nondistended, Normal Bowel Sounds and Tender (LLQ, no peritoneal sign); Negative Organomegaly
Musculoskeletal: No Clubbing, No Cyanosis and No Edema
Skin: Warm, Dry and Normal Turgor; Negative Rash
Neuro: AO x 3, Central Nerve's Intact and Other (1+/5 MMS LUE, 1/5 MMS LLE); Negative Tremors, Slurred Speech or Facial Droop
Psych: Depressed
Data Reviewed
-
Labs: Labs Reviewed by me and Discussed with Patient
[2024-08-18] MEDS: MUCINEX 600 MG PO ×2 (12:30→19:47)
[2024-08-18 15:30] VITALS: BP 114/64
[2024-08-18 16:51] LABS: Glucose - Point of Care 228 mg/dl (70-99)
[2024-08-18] MEDS: NOVOLOG FLEXPEN-LOW RESISTANCE 2 UNITS SC (16:53)
[2024-08-18] MEDS: LIPITOR 40 MG PO (17:00)
[2024-08-18 19:12] VITALS: BP 148/92
[2024-08-18] MEDS: NEURONTIN 100 MG PO (21:21)
[2024-08-18] MEDS: REMERON 7.5 MG PO (21:21)
[2024-08-18 21:47] LABS: Glucose - Point of Care 223 mg/dl (70-99)
[2024-08-18 23:09] VITALS: BP 142/80
[2024-08-19] VITALS (8 sets, daily range): BP systolic 132–169; BP diastolic 65–92; PULSE 104
[2024-08-19] MEDS: OXYCONTIN (CONTROLLED RELEASE) 10 MG PO ×3 (04:51→20:38)
[2024-08-19 07:05] LABS: Hematocrit 33.2 % (37.0-47.0); Hemoglobin 11.2 g/dL (12.0-16.0); Mean Corp Hgb Conc. 33.7 g/dL (33.0-37.0); Mean Platelet Volume 10.1 fL (7.4-10.4); Platelet Count 198 10^3/uL (130-400); Red Blood Cell Count 3.86 10^6/uL (4.20-5.40); Red Cell Dist. Width 17.7 % (11.5-14.5); White Blood Cell Count 5.2 10^3/uL (4.8-10.8)
[2024-08-19 07:12] LABS: Blood Urea Nitrogen 48 mg/dl (7-17); Calcium 8.5 mg/dl (8.4-10.2); Carbon Dioxide 23 mmol/L (22-30); Chloride 108 mmol/L (98-107); Estimated Creatinine Clearance 62 ml/min; Glucose 203 mg/dl (70-99); Potassium 4.5 mmol/L (3.5-5.1); Sodium 137 mmol/L (135-145); eGFR > 60.00
[2024-08-19] MEDS: STRIVERDI RESPIMAT 2 PUFF INH (07:14)
[2024-08-19] MEDS: SPIRIVA RESPIMAT 2.5 MCG 2 PUFF INH (07:14)
[2024-08-19] MEDS: NSS 1000 IV (08:00)
[2024-08-19 08:14] LABS: Glucose - Point of Care 212 mg/dl (70-99)
[2024-08-19 08:24] LABS: Absolute Neutrophils -Man Diff 4.2 10^3/uL (1.4-6.5); Band Neutrophils 33 % (0-3); Lymphocytes 10 % (20-51); Metamyelocytes 1 % (-); Monocytes 8 % (2-9); Segmented Neutrophils 48 % (42-75)
[2024-08-19 08:25] LABS: Anisocytosis 1+; Hypochromasia 1+; Normal RBC Morphology No; Ovalocytes 1+; Platelets Checked Yes; Polychromasia 1+; Total Cells Counted 100
[2024-08-19] MEDS: THERAGRAN 1 TABLET PO (08:33)
[2024-08-19] MEDS: DALIRESP 500 MCG PO (08:33)
[2024-08-19] MEDS: LOW STRENGTH ASPIRIN 81 MG PO (08:33)
[2024-08-19] MEDS: NEURONTIN 200 MG PO (08:34)
[2024-08-19] MEDS: HEPARIN 5000 UNITS SC ×2 (08:34→20:38)
[2024-08-19] MEDS: TYLENOL 1000 MG PO ×3 (08:34→22:07)
[2024-08-19] MEDS: PROTONIX 40 MG PO (08:34)
[2024-08-19] MEDS: VISBIOME 1 CAP PO (08:34)
[2024-08-19] MEDS: DECADRON 2 MG PO ×2 (08:34→20:36)
[2024-08-19] MEDS: DELTASONE 10 MG PO (08:34)
[2024-08-19] MEDS: MUCINEX 600 MG PO ×2 (08:34→20:36)
[2024-08-19] MEDS: NOVOLOG FLEXPEN-LOW RESISTANCE 2 UNITS SC ×2 (08:36→14:41)
--- NOTE | 2024-08-19 09:54 | W.PN.HOSP.TC ---
Today's Communication/Plan
-
GI consult
Monitor blood pressure and glucose
PT OT
Assessment / Plan
Assessment / Plan
Impression
Patient is an 87-year-old female, diagnosed case of stage IV metastatic lung cancer, admitted for suspected right-sided lacunar infarct. Suspected thrombotic etiology with waxing and waning clinical course since her arrival. Symptoms started while
receiving chemotherapy, not TNK candidate due to Eliquis use, no intracranial hemorrhage on CTA. Repeat CT after 24 hours normal, neuro recommends to repeat CT again in 1 week to decide about resumption of Eliquis
Patient started to have blood in stools, hemoglobin relatively stable, GI consult pending
Assessment/plan
Suspected acute CVA
Left-sided extremity weakness-waxing and waning symptoms with no specific timing
Risk factors atherosclerotic cardiovascular disease and hypertension
Symptoms started while she was receiving chemotherapy, did not receive TNK as was taking Eliquis at home
CAT scan so far done on arrival, and then 24 hours later have shown no intracranial hemorrhage
MRI brain-could not be done as patient claustrophobic
Continue aspirin 81 mg and high intensity statin; continue neurochecks
Repeat CT head without contrast in 1 week (08/21), if normal resume Eliquis
Appreciate neurology recommendations
LGIB with abdomen pain
Differential diagnosis include diverticulitis versus ischemic colitis versus infection
Multiple bowel movements with on 08/17 with signs of blood, heme positive
Hemoglobin relatively stable-drop from 13-11.2 in the last 24 hours-significant to warrant gastroenterology consult
CT abdomenIMPRESSION:
1. Acute uncomplicated left-sided colitis, likely of infectious/inflammatory etiology.
2. Indeterminate 1.4 cm hypoattenuating right hepatic lobe lesion. Recommend outpatient workup with dedicated MRI abdomen without and with gadolinium contrast.
Follow GI recommendations
Not on any antibiotics
Leukopenia
Initially had leukocytosis likely related to demargination from chronic steroid, white count now down to 1.7
Absolute neutrophil count 1.4, not currently on neutropenic precautions, no fever
WBC continue to improve since 08/18, today 5.2
Consider hematology consult if start to drop significantly again
Hypertensive urgency
Not on any meds for hypertension
Presented with SBP near 160, resolved without intervention
Will continue to monitor and consider regimen for SBP goal <150 mmHg
Blood pressure remains stable over the last 48 hours
Hyperglycemia due to steroid use
Patient is on chronic steroid with prednisone 10 mg daily and dexamethasone 2 mg twice daily
Blood sugars here have been fairly well-controlled and <200 over 3 lab draws
Will add on low resistance ISS with Accu-Cheks and monitor for now
Depression
Patient has been very tearful related to her new neurologic deficit
Started Remeron for now since low sodium levels, potassium levels have remained relatively stable over the last 48 hours
Defer to psych about antidepressants
Other medical conditions
#Stage IVb NSCLC
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
#Former smoker
-Currently on third line chemotherapy with gemcitabine after recent signs of progression on second line
-Was initially on carbo/pemetrexed with Keytruda, subsequently on Ktazdi (which caused pneumonitis)
-Current regimen also includes chronic immunosuppression with prednisone 10 AM and decadron 2 BID
-Follows with [facility], previously received treatment at [facility]
#Dyslipidemia
-No known ASCVD history previously; LDL here 95
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
-Placed back onto high intensity statin due to likely CVA
#GERD
-Home regimen includes daily omeprazole
-No known history of erosive esophagitis or Yarbrough's esophagus
#Chronic pain on opiates
-Secondary to cancer related issues, has multifactorial pain
-Home regimen includes gabapentin for neuropathic pain, oxycodone for somatic pain
Added on heating pad as requested by patient
#COPD without exacerbation
-No PFTs to review; Home regimen includes Roflumilast, Anoro Ellipta, prednisone/dex, PRN lev albuterol
-Suspect advanced ages with likely gold C to D classification
-No signs of exacerbation at this time, no O2 at baseline
#Dry eye syndrome
-Continue's Xiidra eyedrop
#H/O pulmonary embolism (2023)
-Suspect this is provoked from her metastatic cancer
-Home medications include Eliquis 5 mg twice daily
-Planning to resume Eliquis in [address] head normal on repeat
Diet: Cholesterol-lowering
DVT prophylaxis: SQ heparin
CODE STATUS: Full code
Disposition: Recommended acute rehab, physiatry consulted
Anticipated Discharge: 24 - 48 hours
Subjective/Interval History
-
Date of Service: August 19, 2024
Patient feeling very weak and fragile, unable to move her left side
Symptoms come and go
Objective Data
-
Labs:
Laboratory Results
08/19/24
06:10
WBC 5.2
Hgb 11.2 L
Hct 33.2 L
Plt Count 198
Sodium 137
Potassium 4.5
Chloride 108 H
Carbon Dioxide 23
BUN 48 H
Creatinine 0.6
Glucose 203 H
Calcium 8.5
Vital Signs:
Vital Signs
Temp Pulse Resp BP Pulse Ox
98.0 F 90 16 132/65 95
08/19/24 07:05 08/19/24 07:17 08/19/24 07:17 08/19/24 07:05 08/19/24 07:17
I&O
08/18/24 08/19/24 08/20/24
06:59 06:59 06:59
Intake Total 240 / 240 390 / 390
Balance 240 / 240 390 / 390
Review of Systems
-
All other systems: Reviewed and negative
Physical Exam
-
General: No Apparent Distress, Appears Chronically Ill and Other (Hoarseness of voice)
HEENT: Normocephalic, Atraumatic, Moist Mucous Membranes and Other (Neck swelling on left side, related to recent radiation)
Respiratory: Clear to Auscultation and Other (No accessory respiratory muscle use, no wheezes rales or rhonchi)
Cardiac: Regular Rhythm, S1/S2 and Other (No murmur or gallop)
GI: Soft, Nontender, Nondistended and Normal Bowel Sounds
Musculoskeletal: No Clubbing, No Cyanosis and No Edema
Skin: Warm, Dry and Normal Turgor
Neuro: Awake, Oriented, Slurred Speech and Other (1+/5 left upper extremity, 1/5 strength left lower extremity)
Psych: Anxious
[2024-08-19] MEDS: ROXICODONE 5 MG PO ×2 (10:26→22:07)
[2024-08-19 12:08] LABS: Glucose - Point of Care 239 mg/dl (70-99)
--- NOTE | 2024-08-19 12:14 | CON.GI ---
Addendum entered and electronically signed by Bhupendra Sanchez MD 08/19/24 14:37:
Patient seen and examined, agree with nurse practitioner note. Patient is an 79-year-old female with complicated past medical history as described below, admitted with concern for possible thromboembolic CVA. She was noted to have heme positive
stools, though no gross bleeding. I discussed with the patient and her . No melena, hematochezia, and currently has been feeling well. She did have recent constipation and impaction requiring disimpaction. CT scan noted some thickening of
the left colon on August 18. She is currently feeling well and denies any abdominal pain, nausea or vomiting, again no gross bleeding. Hemoglobin has ranged from the 11-13's without transfusion. On exam she has no significant abdominal tenderness.
1. Heme positive stool: Though no gross bleeding, hemoglobin has varied without transfusion. CT scan likely from probable stercoral colitis given recent constipation and impaction. At this point would not plan any GI intervention unless had
significant gross bleeding or continued significant drop in hemoglobin. There is no GI contraindication to restarting anticoagulation if clinically indicated. I discussed this with the patient and her .
We will sign off for now, please call back with any further questions.
Original Note:
Consultation
-
Date/Time Consultation Requested: 08/19/2430
Date/Time Consultation Performed: 08/19/24 1215
Requesting Provider: Lavonne Krause MD
Performing Provider: AL Ackerman, Apolinar Sanchez MD
Reason for Consultation: blood stools
Medical History
Chief Complaint / HPI
Chief Complaint: left sided abdominal pain
History of Present Illness:
Pt is an 79yo presents with history of HTN with urgency during admission, chronic pain with opioid use , COPD, GERD non small cell lung CA with mets to liver and bone with prior treatment in [place] near where she lives in [place]. She
was getting treatment at [facility] then locally but developed PNA and was discussed hospice. She did seek care at [facility] for second opinion. She starts recently she received radiation to neck area and Coccyx. She then started chemo with
Gemcitabine 2 weeks ago then day of admission. She was noted with concern for CVA with possible thrombotic event with neurology consult. she has been noted with heme + stool and asked to eval as needs to resume Eliquis but had drop in hbg 13.1 to
11.2. She also related constipation with need for disimpaction then diarrhea and new left sided abdominal pain. Ct completed 08/18 with noted left sided colitis. She denies hx prior GI bleeding or anemia in past.
She currently admits to some dysphagia with recent CVA. she denies nausea, vomiting, or seeing blood or black in stools. She has been on Eliquis prior to admission. Currently also on daily ASA, prednisone, along with SQ heparin, PPI and
chronic narcotic use.
Past Medical History
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
Social History
Tobacco: Former Smoker
Alcohol: Former (prior 2 drinks daily before cancer diagnosis )
Drug: None
Personal:
Living: With Family
Family History
Family History: Other (no family hx GI cancers )
Allergies / Home Medications
Allergy/AdvReac Type Severity Reaction Status Date / Time
moxifloxacin [From Avelox] Allergy Intermediate Unknown Verified 08/13/24 12:22
hydromorphone [From Dilaudid] Allergy Mild Rash Verified 08/13/24 12:22
codeine Allergy Nausea / Verified 08/13/24 12:22
Vomiting
�Medication �Instructions �Recorded
Bifidobacterium infantis 4 mg 4 mg PO DAILY Supplement 08/13/24
capsule (Align (B.infantis))
acetaminophen 500 mg tablet 1,000 mg PO QID Pain 08/13/24
(Tylenol Extra Strength)
apixaban 5 mg tablet (Eliquis) 5 mg PO BID Blood Clot 08/13/24
Prevention/Tx
dexamethasone 2 mg tablet 2 mg PO BID INFLAMMATION 08/13/24
gabapentin 100 mg capsule 100 mg PO HS NEUROPATHIC PAIN 08/13/24
gabapentin 100 mg capsule 200 mg PO DAILY NEUROPATHIC PAIN 08/13/24
levalbuterol HCl 0.63 mg/3 mL 0.63 mg inhalation R Q6HPRN PRN sob 08/13/24
solution for nebulization
lidocaine-prilocaine 2.5 %-2.5 % 1 applic topical DAILYPRN PRN port 08/13/24
topical cream
lifitegrast 5 % eye drops in a 1 drp BOTH EYES BID DRY EYE 08/13/24
dropperette (Xiidra)
omeprazole 40 mg capsule,delayed 40 mg PO DAILY GERD 08/13/24
release
ondansetron HCl 8 mg tablet 8 mg PO [id number] PRN nausea 08/13/24
oxycodone 10 mg tablet,crush 10 mg PO TID@0500,1400,2000 Pain 08/13/24
resistant,extended release 12 hr
(OxyContin)
oxycodone 5 mg tablet 5 mg PO BID@1000,2200 Pain 08/13/24
prednisone 20 mg tablet 10 mg PO DAILY INFLAMMATION 08/13/24
roflumilast 500 mcg tablet 500 mcg PO DAILY COPD 08/13/24
(Daliresp)
therapeutic multivitamin 1 tab PO DAILY Supplement 08/13/24
umeclidinium 62.5 mcg-vilanterol 1 inh inhalation R DAILY 08/13/24
25 mcg/actuation powdr for Lung/Breathing Issues
inhalation (Anoro Ellipta)
Review of Systems
-
History Source: Patient and Family
Constitutional: Reports Weight Loss
EENT: Reports Other (dysphagia )
Respiratory: Reports Trouble Breathing (at times with recent PNA)
Cardiac: Reports No Symptoms
Abdomen/GI: Reports Abdominal Pain, Diarrhea and Constipated
: Reports No Symptoms
Musculoskeletal: Reports Other (chronic pain with cancer )
Neurological: Reports Weakness
Endocrine: Reports No Symptoms
Hematologic/Lymphatic: Reports No Symptoms
Vital Signs
Temp Pulse Resp BP Pulse Ox
97.6 F 107 18 149/79 97
08/19/24 11:05 08/19/24 11:05 08/19/24 11:05 08/19/24 11:05 08/19/24 11:05
Physical Exam
Exam
General: Other (chronically ill appearing but conversant )
HEENT: Normocephalic and Anicteric
Respiratory: Other (course with decreased bases )
Cardiac: Other (tachy )
GI: Soft, Tender (LLQ) and Distended (mild )
Musculoskeletal: No Clubbing and No Cyanosis
Skin: Warm and Dry
Neuro: Awake, Alert, AO x 3 and Other (left sided weakness )
Psych: Calm
Results
WBC 5.2 10^3/uL (4.8-10.8) 08/19/24 06:10
Hgb 11.2 g/dL (12.0-16.0) L 08/19/24 06:10
Hct 33.2 % (37.0-47.0) L 08/19/24 06:10
MCV 86.0 fL (81.0-99.0) 08/19/24 06:10
Plt Count 198 10^3/uL (130-400) 08/19/24 06:10
Absolute Neuts (auto) 2.3 10^3/uL (1.4-6.5) 08/16/24 06:15
PT 17.0 Sec (11.4-14.6) H 08/13/24 12:58
INR 1.35 08/13/24 12:58
APTT 27.1 Sec (23.4-35.0) 08/13/24 12:58
Sodium 137 mmol/L (135-145) 08/19/24 06:10
Potassium 4.5 mmol/L (3.5-5.1) 08/19/24 06:10
Chloride 108 mmol/L (98-107) H 08/19/24 06:10
Carbon Dioxide 23 mmol/L (22-30) 08/19/24 06:10
BUN 48 mg/dl (7-17) H 08/19/24 06:10
Creatinine 0.6 mg/dL (0.6-1.0) 08/19/24 06:10
Calcium 8.5 mg/dl (8.4-10.2) 08/19/24 06:10
Total Bilirubin 0.5 mg/dl (0.2-1.3) 08/13/24 12:58
AST 16 U/L (14-36) 08/13/24 12:58
ALT 17 U/L (0-35) 08/13/24 12:58
Alkaline Phosphatase 57 U/L (38-126) 08/13/24 12:58
Diagnostic Image Results:
1. Acute uncomplicated left-sided colitis, likely of infectious/inflammatory etiology.
2. Indeterminate 1.4 cm hypoattenuating right hepatic lobe lesion. Recommend outpatient workup with dedicated MRI abdomen without and with gadolinium contrast
Prior GI Procedures:
EGD: none
Colonoscopy: years ago
Assessment / Plan
-
Pt is an 79yo presents with history of HTN with urgency during admission, chronic pain with opioid use, COPD, GERD non small cell lung CA with mets to liver and bone with diagnosis in September 2023 prior treatment in [place] near where she lives in
[place]. She was getting treatment at [facility] then locally near her home but developed PNA and was discussed hospice. She did seek care at [facility] for second opinion. She starts recently she received radiation to neck area and Coccyx.
She then started chemo with Gemcitabine 2 weeks ago then day of admission. She was noted with concern for CVA with possible thrombotic event with new onset of left sided weakness with neurology follow. She has been noted with heme + stool, slight
drop in hbg,constipation with need for disimpaction then diarrhea, colitis with left sided abdominal pain.
-left sided abdominal with colitis on CT
-anemia with mild drop in hbg
-constipation then diarrhea
-metastatic Small cell lung CA with known mets to liver and bone
-concern for CVA with left side weakness on admission
-HTN with HTN urgency on admission
other med problems:
-COPD
-GERD
-chronic pain
-chronic opioid use
PLAN:
etiology of anemia with heme + stool with concern for colitis
colitis may be on basis of recent constipation with need for disimpaction, ischemic event, infectious vs other
no gross signs of active GI bleeding
c-diff neg
trend hbg
will review with Dr. Sanchez for resuming Eliquis with close follow of hbg
pt was given Plavix 08/15 on admission but now on ASA daily
remain on 1 gram tylenol TID for pain
cont PPI with prednisone use
change to low lactose/low residue diet with loose stools
reviewed with family
-
-
Thank you for consultation and allowing me to participate in the patient's care. Please call the director of donor relations GI physician during the after hours with any questions or concerns.
[2024-08-19] MEDS: VENTOLIN NEBULES 1.25 MG INH (16:24)
--- NOTE | 2024-08-19 17:17 | CM ---
CM met with Lydia and her today to discuss discharge plans. Pt's has been very upset over what he sees as the lack of communication and people promising to follow up with him, but never returning. Support provided and CM has been
in touch with him throughout the day.
is also concerned that therapy is very short, and doesn't understand how Lydia will improve and get stronger. We discussed SNF admission to help increase the amount of therapy and improve strength to get her to the point of being able to
tolerate ARF, however pt is adamantly refusing to consider SNF.
Pt has stage IV Cancer; was told that acute rehab would be the plan.
Pt referred to [facility], as they live close to there. CM will f/u in AM to determine if pt is accepted for transfer to [facility].
[2024-08-19] MEDS: NSS IV (17:35)
[2024-08-19] MEDS: LIPITOR 40 MG PO (17:36)
[2024-08-19 17:38] LABS: Glucose - Point of Care 241 mg/dl (70-99)
[2024-08-19] MEDS: NOVOLOG FLEXPEN-LOW RESISTANCE SC (19:19)
[2024-08-19 21:42] LABS: Glucose - Point of Care 190 mg/dl (70-99)
[2024-08-19] MEDS: NEURONTIN 100 MG PO (22:07)
[2024-08-19] MEDS: REMERON 7.5 MG PO (22:07)
[2024-08-20 03:26] VITALS: BP 149/72
[2024-08-20] MEDS: OXYCONTIN (CONTROLLED RELEASE) 10 MG PO ×3 (04:30→20:13)
[2024-08-20 06:55] LABS: ALT (SGPT) 24 U/L (0-35); AST (SGOT) 20 U/L (14-36); Albumin 2.4 g/dl (3.5-5.0); Alkaline Phosphatase 65 U/L (38-126); Blood Urea Nitrogen 32 mg/dl (7-17); Carbon Dioxide 24 mmol/L (22-30); Chloride 113 mmol/L (98-107); Estimated Creatinine Clearance 62 ml/min; Glucose 181 mg/dl (70-99); Phosphorus 2.1 mg/dl (2.5-4.5); Potassium 4.4 mmol/L (3.5-5.1); Sodium 136 mmol/L (135-145); Total Bilirubin 0.5 mg/dl (0.2-1.3); Total Protein 4.4 g/dl (6.3-8.2); eGFR > 60.00
[2024-08-20 07:05] VITALS: BP 135/73
[2024-08-20 07:09] LABS: Hematocrit 31.2 % (37.0-47.0); Hemoglobin 10.2 g/dL (12.0-16.0); Mean Corp Hgb Conc. 32.7 g/dL (33.0-37.0); Mean Corpuscular Hgb 28.3 pg (27.0-31.0); Mean Corpuscular Volume 86.4 fL (81.0-99.0); Red Blood Cell Count 3.61 10^6/uL (4.20-5.40); Red Cell Dist. Width 17.9 % (11.5-14.5); White Blood Cell Count 5.8 10^3/uL (4.8-10.8)
[2024-08-20 07:39] LABS: Glucose - Point of Care 165 mg/dl (70-99)
[2024-08-20] MEDS: NEURONTIN 200 MG PO (07:49)
[2024-08-20] MEDS: TYLENOL 1000 MG PO ×3 (07:49→22:53)
[2024-08-20] MEDS: DALIRESP 500 MCG PO (07:49)
[2024-08-20] MEDS: PROTONIX 40 MG PO (07:50)
[2024-08-20] MEDS: THERAGRAN 1 TABLET PO (07:50)
[2024-08-20] MEDS: MUCINEX 600 MG PO ×2 (07:50→20:12)
[2024-08-20] MEDS: DECADRON 2 MG PO ×2 (07:50→20:12)
[2024-08-20] MEDS: LOW STRENGTH ASPIRIN 81 MG PO (07:50)
[2024-08-20] MEDS: DELTASONE 10 MG PO (07:50)
[2024-08-20] MEDS: HEPARIN 5000 UNITS SC ×2 (07:50→20:13)
[2024-08-20] MEDS: VISBIOME 1 CAP PO (07:51)
[2024-08-20] MEDS: NOVOLOG FLEXPEN-LOW RESISTANCE 1 UNITS SC ×2 (07:51→12:42)
[2024-08-20] MEDS: STRIVERDI RESPIMAT 2 PUFF INH (08:33)
[2024-08-20] MEDS: SPIRIVA RESPIMAT 2.5 MCG 2 PUFF INH (08:33)
--- NOTE | 2024-08-20 09:10 | W.PN.HOSP.TC ---
Today's Communication/Plan
-
Discuss hospice
Assessment / Plan
Assessment / Plan
Impression
Patient is an 87-year-old female, diagnosed case of stage IV metastatic lung cancer, admitted for suspected right-sided lacunar infarct. Suspected thrombotic etiology with waxing and waning clinical course since her arrival. Symptoms started while
receiving chemotherapy, not TNK candidate due to Eliquis use, no intracranial hemorrhage on CTA. Repeat CT after 24 hours normal, neuro recommends to repeat CT again in 1 week to decide about resumption of Eliquis
Patient started to have blood in stools, hemoglobin relatively stable, GI consult pending
Assessment/plan
Suspected acute CVA
Left-sided extremity weakness-waxing and waning symptoms with no specific timing
Risk factors atherosclerotic cardiovascular disease and hypertension
Symptoms started while she was receiving chemotherapy, did not receive TNK as was taking Eliquis at home
CAT scan so far done on arrival, and then 24 hours later have shown no intracranial hemorrhage
MRI brain-could not be done as patient claustrophobic
Continue aspirin 81 mg and high intensity statin; continue neurochecks
Repeat CT head without contrast in 1 week (08/21), if normal resume Eliquis
Appreciate neurology recommendations
Patient needs chemotherapy port which will require Eliquis being held-contact Dr. Ulrich at [facility] to coordinate direct oral anticoagulation
LGIB with abdomen pain
Differential diagnosis include diverticulitis versus ischemic colitis versus infection
Multiple bowel movements on 08/17 with signs of blood, heme positive, no gross blood noticed
H hemoglobin dropped to 10.2-GI consult appreciated- CT scan likely from probable stercoral colitis given recent constipation and impaction.
CT abdomenIMPRESSION:
1. Acute uncomplicated left-sided colitis, likely of infectious/inflammatory etiology.
2. Indeterminate 1.4 cm hypoattenuating right hepatic lobe lesion. Recommend outpatient workup with dedicated MRI abdomen without and with gadolinium contrast.
GI okay with resuming Eliquis, signed off, no further intervention needed as per GI
Leukopenia
Initially had leukocytosis likely related to demargination from chronic steroid, white count now down to 1.7
Absolute neutrophil count 1.4, not currently on neutropenic precautions, no fever
WBC continue to improve since 08/18, today 5.8
Continue to monitor
Hypertensive urgency
Not on any meds for hypertension
Presented with SBP near 160, resolved without intervention
Will continue to monitor and consider regimen for SBP goal <150 mmHg
Blood pressure remains stable over the last 48 hours
Hyperglycemia due to steroid use
Patient is on chronic steroid with prednisone 10 mg daily and dexamethasone 2 mg twice daily
Blood sugars here have been fairly well-controlled and <200 over 3 lab draws
Will add on low resistance ISS with Accu-Cheks and monitor for now
Depression
Patient has been very tearful related to her new neurologic deficit
Sodium level stable
Continues Remeron at 7.5 mg at bedtime
Other medical conditions
#Stage IVb NSCLC
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
#Former smoker
-Currently on third line chemotherapy with gemcitabine after recent signs of progression on second line
-Was initially on carbo/pemetrexed with Keytruda, subsequently on Ktazdi (which caused pneumonitis)
-Current regimen also includes chronic immunosuppression with prednisone 10 AM and decadron 2 BID
-Follows with [facility], previously received treatment at [facility]
#Dyslipidemia
-No known ASCVD history previously; LDL here 95
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
-Placed back onto high intensity statin due to likely CVA
#GERD
-Home regimen includes daily omeprazole
-No known history of erosive esophagitis or Yarbrough's esophagus
#Chronic pain on opiates
-Secondary to cancer related issues, has multifactorial pain
-Home regimen includes gabapentin for neuropathic pain, oxycodone for somatic pain
Added on heating pad as requested by patient
#COPD without exacerbation
-No PFTs to review; Home regimen includes Roflumilast, Anoro Ellipta, prednisone/dex, PRN lev albuterol
-Suspect advanced ages with likely gold C to D classification
-No signs of exacerbation at this time, no O2 at baseline
#Dry eye syndrome
-Continue's Xiidra eyedrop
#H/O pulmonary embolism (2023)
-Suspect this is provoked from her metastatic cancer
-Home medications include Eliquis 5 mg twice daily
-Planning to resume Eliquis in [address] head normal on repeat
Diet: Cholesterol-lowering
DVT prophylaxis: SQ heparin
CODE STATUS: Full code
Disposition: Recommended acute rehab, physiatry consulted
Patient wishes to go on hospice,put in consult for hospice for heel caser
Anticipated Discharge: 24 - 48 hours
Subjective/Interval History
-
Date of Service: August 20, 2024
Has been present on bedside, upset about the recovery speed, wants to [facility] rehab, has ongoing conversations with the heel caser
Patient sleeping
Waxing and waning weakness of left side of the body
Objective Data
-
Labs:
Laboratory Results
08/20/24
05:54
WBC 5.8
Hgb 10.2 L
Hct 31.2 L
Plt Count Pending
Sodium 136
Potassium 4.4
Chloride 113 H
Carbon Dioxide 24
BUN 32 H
Creatinine 0.5 L
Glucose 181 H
Calcium 8.0 L
Total Bilirubin 0.5
AST 20
ALT 24
Alkaline Phosphatase 65
Vital Signs:
Vital Signs
Temp Pulse Resp BP Pulse Ox
98.0 F 74 17 135/73 97
08/20/24 07:05 08/20/24 07:05 08/20/24 07:05 08/20/24 07:05 08/20/24 07:05
I&O
08/19/24 08/20/24 08/21/24
06:59 06:59 06:59
Intake Total 390 / 390 840 / 840
Balance 390 / 390 840 / 840
Review of Systems
-
All other systems: Reviewed and negative
Physical Exam
-
General: No Apparent Distress, Comfortable and Appears Chronically Ill (Slurred speech/hoarseness of voice)
HEENT: Normocephalic, Atraumatic, Moist Mucous Membranes and Other (Neck swelling on the left side related to recent radiation)
Respiratory: Clear to Auscultation and Other (No wheezes rales or rhonchi)
Cardiac: Regular Rhythm, S1/S2 and Other (No murmurs rubs or gallops)
GI: Soft, Nontender, Nondistended and Normal Bowel Sounds
Musculoskeletal: No Clubbing, No Cyanosis and No Edema
Skin: Warm and Dry
Neuro: Oriented, Slurred Speech and Other (1+/5 left upper extremity, 1/5 strength left lower extremity)
Psych: Anxious
[2024-08-20] MEDS: ROXICODONE 5 MG PO ×2 (10:14→22:53)
[2024-08-20 10:56] LABS: Mean Platelet Volume 10.2 fL (7.4-10.4); Platelet Count 156 10^3/uL (130-400)
[2024-08-20 10:58] LABS: Absolute Neutrophils -Man Diff 4.9 10^3/uL (1.4-6.5); Band Neutrophils 19 % (0-3); Lymphocytes 3 % (20-51); Metamyelocytes 4 % (-); Monocytes 4 % (2-9); Myelocytes 3 % (-); Platelets Checked Yes; Segmented Neutrophils 67 % (42-75)
[2024-08-20 10:59] LABS: Normal RBC Morphology Yes; Total Cells Counted 100; Toxic Granulation 2+
[2024-08-20 11:05] VITALS: BP 172/87
--- NOTE | 2024-08-20 12:08 | W.PN.UPDATE ---
Update Note
Progress Note Update
Patient seen at bedside with , chart reviewed, discussed with nursing and Dr. Roper. Ms. Guido was resting comfortably, did not want to interact much. Her was quite upset, not getting any answers. Dr. Roper states the patient again
has asked for hospice and the team will talk to her again. Her does not seem to be on board but did say, 'if that is what she wants, to give up, okay then'. Her thinks she is sleeping too much. I did ask her if she felt too sedate
and she told me she does not. Her nurse also did not think she was over sedated.
Impression/Plan: Depression, unspecified - Remeron 7.5mg initiated, too soon to determine benefit but would continue for now. It is unclear whether she will continue with care or transition into hospice. Psych will follow for now.
[2024-08-20 12:30] LABS: Glucose - Point of Care 172 mg/dl (70-99)
--- NOTE | 2024-08-20 13:44 | CM ---
Addendum entered by Kevin Cornelius 08/20/24 15:41:
CM asked by RN to meet with pt and her again.
Pt's expressed his frustration and asked not to talk to him but to talk to 'her'.
pt went to tears stating she made her upset and she does not want to do it. Pt stated she feels she does not want to yet and she asked to bring her for conversation. Pt's strongly supported his idea for pt to get better
and to go to acute rehab. Pt went to tears, stated she is not ready to make changes to her decision she made earlier. Pt stated she will talk to MD tomorrow regarding her option to go to acute rehab instead of going on hospice care.
Both pt and her have been notified that [facility] acute rehab in [place] offered a bed and awaiting for [facility] acute rehab in [facility].
Both pt and her are aware that [facility] is reviewing a referral for hospice care.
Pt stated she will make a final decision tomorrow.
D/C plan: preferred acute rehab or [facility].
CM will follow with discharge plan updates tomorrow.
Original Note:
CM following re: discharge planning.
Reviewed pt's chart, met with pt and pt's Sonu at bedside.
CM has detailed discussion regarding pt's care, next level of care with MD and RN.
Hospice consult noted.
Pt's expressed very unhappy feelings regarding pt's request for hospice care. Pt's was very short in conversation, stated: 'talk to her' and left the room.
Pt presents lying on a bed with severe painful facial expression, depressed mood, very sad affect. In a very low tone pt stated she wants hospice care and she requested [facility]. Pt stated her will not be able to care for
her. Emotional support offered and provided.
IMM reviewed, placed on chart, pt has a copy.
CM called [facility] [phone], spoke to roofing sales representative Ramona and requested pt's clinical faxed to [facility] at [phone]. Awaiting for determination.
D/c plan: [facility].
CM will follow to assist pt with discharge to [facility].
[2024-08-20 14:54] VITALS: BP 122/97
[2024-08-20 16:48] LABS: Glucose - Point of Care 202 mg/dl (70-99)
[2024-08-20] MEDS: LIPITOR 40 MG PO (17:22)
[2024-08-20] MEDS: NOVOLOG FLEXPEN-LOW RESISTANCE 2 UNITS SC (17:22)
[2024-08-20 21:36] LABS: Glucose - Point of Care 168 mg/dl (70-99)
[2024-08-20] MEDS: NEURONTIN 100 MG PO (22:53)
[2024-08-20] MEDS: REMERON 7.5 MG PO (22:53)
[2024-08-21 00:10] VITALS: BP 171/86
[2024-08-21] MEDS: OXYCONTIN (CONTROLLED RELEASE) 10 MG PO ×3 (04:24→19:56)
[2024-08-21 06:29] LABS: Hematocrit 30.2 % (37.0-47.0); Hemoglobin 10.2 g/dL (12.0-16.0); Mean Corp Hgb Conc. 33.8 g/dL (33.0-37.0); Mean Corpuscular Hgb 28.5 pg (27.0-31.0); Mean Corpuscular Volume 84.4 fL (81.0-99.0); Mean Platelet Volume 9.9 fL (7.4-10.4); Platelet Count 127 10^3/uL (130-400); Red Blood Cell Count 3.58 10^6/uL (4.20-5.40); Red Cell Dist. Width 17.7 % (11.5-14.5); White Blood Cell Count 7.2 10^3/uL (4.8-10.8)
[2024-08-21 06:41] LABS: ALT (SGPT) 37 U/L (0-35); AST (SGOT) 29 U/L (14-36); Albumin 2.4 g/dl (3.5-5.0); Alkaline Phosphatase 67 U/L (38-126); Blood Urea Nitrogen 27 mg/dl (7-17); Calcium 7.9 mg/dl (8.4-10.2); Carbon Dioxide 21 mmol/L (22-30); Chloride 110 mmol/L (98-107); Estimated Creatinine Clearance 62 ml/min; Glucose 158 mg/dl (70-99); Potassium 4.3 mmol/L (3.5-5.1); Sodium 136 mmol/L (135-145); Total Bilirubin 0.5 mg/dl (0.2-1.3); Total Protein 4.6 g/dl (6.3-8.2); eGFR > 60.00
[2024-08-21 07:21] LABS: Lymphocytes 6 % (20-51); Monocytes 6 % (2-9)
[2024-08-21 07:22] LABS: Atypical Lymphocytes 1 %; Metamyelocytes 5 % (-)
[2024-08-21 07:26] LABS: Band Neutrophils 8 % (0-3)
[2024-08-21] MEDS: SPIRIVA RESPIMAT 2.5 MCG 2 PUFF INH (07:30)
[2024-08-21] MEDS: STRIVERDI RESPIMAT 2 PUFF INH (07:31)
[2024-08-21 07:32] LABS: Myelocytes 7 % (-)
[2024-08-21 07:34] LABS: Absolute Neutrophils -Man Diff 5.4 10^3/uL (1.4-6.5); Anisocytosis 1+; Hypochromasia 1+; Normal RBC Morphology No; Platelets Checked Yes; Polychromasia Slight; Segmented Neutrophils 67 % (42-75)
[2024-08-21 07:35] LABS: Total Cells Counted 100
[2024-08-21 07:54] LABS: Glucose - Point of Care 137 mg/dl (70-99)
[2024-08-21] MEDS: NOVOLOG FLEXPEN-LOW RESISTANCE SC (07:57)
[2024-08-21 08:01] VITALS: BP 182/83
[2024-08-21] MEDS: LOW STRENGTH ASPIRIN 81 MG PO (08:25)
[2024-08-21] MEDS: TYLENOL 1000 MG PO ×3 (08:25→22:31)
[2024-08-21] MEDS: DALIRESP 500 MCG PO (08:25)
[2024-08-21] MEDS: NEURONTIN 200 MG PO (08:25)
[2024-08-21] MEDS: DELTASONE 10 MG PO (08:25)
[2024-08-21] MEDS: MUCINEX 600 MG PO ×2 (08:25→19:56)
[2024-08-21] MEDS: PROTONIX 40 MG PO (08:25)
[2024-08-21] MEDS: HEPARIN 5000 UNITS SC ×2 (08:26→19:55)
[2024-08-21] MEDS: VISBIOME 1 CAP PO (08:26)
[2024-08-21] MEDS: DECADRON 2 MG PO ×2 (08:26→19:56)
[2024-08-21] MEDS: THERAGRAN 1 TABLET PO (08:26)
[2024-08-21] MEDS: ROXICODONE 5 MG PO ×2 (09:34→22:30)
--- NOTE | 2024-08-21 11:19 | W.PN.HOSP.TC ---
Today's Communication/Plan
-
PT/OT consult
Assessment / Plan
Assessment / Plan
Impression
Patient is an 87-year-old female, diagnosed case of stage IV metastatic lung cancer, admitted for suspected right-sided lacunar infarct. Suspected thrombotic etiology with waxing and waning clinical course since her arrival. Symptoms started while
receiving chemotherapy, not TNK candidate due to Eliquis use, no intracranial hemorrhage on CTA. Repeat CT after 24 hours normal, neuro recommends to repeat CT again in 1 week to decide about resumption of Eliquis
Patient started to have blood in stools, hemoglobin relatively stable-resolved on own
Assessment/plan
Suspected acute CVA
Left-sided extremity weakness-waxing and waning symptoms with no specific timing
Risk factors atherosclerotic cardiovascular disease and hypertension
Symptoms started while she was receiving chemotherapy, did not receive TNK as was taking Eliquis at home
CAT scan so far done on arrival, and then 24 hours later have shown no intracranial hemorrhage
MRI brain-could not be done as patient claustrophobic
Continue aspirin 81 mg and high intensity statin; continue neurochecks
Repeat CT head without contrast in 1 week (08/21), if normal resume Eliquis
Appreciate neurology recommendations
Patient needs chemotherapy port which will require Eliquis being held-contact Dr. Ulrich at [facility] to coordinate direct oral anticoagulation
LGIB with abdomen pain
Differential diagnosis include diverticulitis versus ischemic colitis versus infection
Multiple bowel movements on 08/17 with signs of blood, heme positive, no gross blood noticed
H hemoglobin dropped to 10.2-GI consult appreciated- CT scan likely from probable stercoral colitis given recent constipation and impaction.
CT abdomenIMPRESSION:
1. Acute uncomplicated left-sided colitis, likely of infectious/inflammatory etiology.
2. Indeterminate 1.4 cm hypoattenuating right hepatic lobe lesion. Recommend outpatient workup with dedicated MRI abdomen without and with gadolinium contrast.
GI okay with resuming Eliquis, signed off, no further intervention needed as per GI
Leukopenia
Initially had leukocytosis likely related to demargination from chronic steroid, white count now down to 1.7
Absolute neutrophil count 1.4, not currently on neutropenic precautions, no fever
WBC continue to improve since 08/18, today (08/21)7.2-Resolved
Hypertensive urgency
Not on any meds for hypertension
Presented with SBP near 160, resolved without intervention
Will continue to monitor and consider regimen for SBP goal <150 mmHg
Add hydralazine on as needed basis
Hyperglycemia due to steroid use
Patient is on chronic steroid with prednisone 10 mg daily and dexamethasone 2 mg twice daily
Blood sugars here have been fairly well-controlled and <200 over 3 lab draws
Will add on low resistance ISS with Accu-Cheks and monitor for now
Depression
Patient has been very tearful related to her new neurologic deficit
Sodium level stable
Continues Remeron at 7.5 mg at bedtime
Other medical conditions
#Stage IVb NSCLC
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
#Former smoker
-Currently on third line chemotherapy with gemcitabine after recent signs of progression on second line
-Was initially on carbo/pemetrexed with Keytruda, subsequently on Ktazdi (which caused pneumonitis)
-Current regimen also includes chronic immunosuppression with prednisone 10 AM and decadron 2 BID
-Follows with [facility], previously received treatment at [facility]
#Dyslipidemia
-No known ASCVD history previously; LDL here 95
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
-Placed back onto high intensity statin due to likely CVA
#GERD
-Home regimen includes daily omeprazole
-No known history of erosive esophagitis or Yarbrough's esophagus
#Chronic pain on opiates
-Secondary to cancer related issues, has multifactorial pain
-Home regimen includes gabapentin for neuropathic pain, oxycodone for somatic pain
Added on heating pad as requested by patient
#COPD without exacerbation
-No PFTs to review; Home regimen includes Roflumilast, Anoro Ellipta, prednisone/dex, PRN lev albuterol
-Suspect advanced ages with likely gold C to D classification
-No signs of exacerbation at this time, no O2 at baseline
#Dry eye syndrome
-Continue's Xiidra eyedrop
#H/O pulmonary embolism (2023)
-Suspect this is provoked from her metastatic cancer
-Home medications include Eliquis 5 mg twice daily
-Planning to resume Eliquis in [address] head normal on repeat
Diet: Cholesterol-lowering
DVT prophylaxis: SQ heparin
CODE STATUS: Full code
Patient changed her mind about hospice,would like to go to acute rehab
PT/OT consult placed
Anticipated Discharge: Within 24 hours
Subjective/Interval History
-
Date of Service: August 21, 2024
Patient changed her mind about hospice and would be going to [facility] instead
Feels her left arm is slightly better in terms of strength,left leg still feels very weak
Objective Data
-
Labs:
Laboratory Results
08/21/24
05:48
WBC 7.2
Hgb 10.2 L
Hct 30.2 L
Plt Count 127 L
Sodium 136
Potassium 4.3
Chloride 110 H
Carbon Dioxide 21 L
BUN 27 H
Creatinine 0.4 L
Glucose 158 H
Calcium 7.9 L
Total Bilirubin 0.5
AST 29
ALT 37 H
Alkaline Phosphatase 67
Vital Signs:
Vital Signs
Temp Pulse Resp BP Pulse Ox
97.4 F 87 18 182/83 98
08/21/24 08:01 08/21/24 08:01 08/21/24 08:01 08/21/24 08:01 08/21/24 08:01
I&O
0508/21/24 08/22/24
06:59 06:59 06:59
Intake Total 840 / 840 1200 / 1200
Balance 840 / 840 1200 / 1200
Review of Systems
-
All other systems: Reviewed and negative
Physical Exam
-
General: No Apparent Distress and Appears Chronically Ill
HEENT: Normocephalic, Atraumatic, Moist Mucous Membranes and Other (Neck swelling on left side)
Respiratory: Clear to Auscultation; Negative Wheezes, Rales, Rhonchi or Crackles
Cardiac: Regular Rhythm and S1/S2
GI: Soft, Nontender and Normal Bowel Sounds
Musculoskeletal: No Clubbing, No Cyanosis and No Edema
Skin: Warm and Dry
Neuro: Awake, Oriented and Other (left sided weakness,LUE 2/5,LLE 1/5)
Hematologic / Lymphatic: Other (Left supraclavicular?)
Psych: Other (flat effect)
[2024-08-21 11:21] VITALS: BP 156/89; PULSE 82; O2SAT 97
[2024-08-21 11:22] VITALS: BP 156/89; PULSE 90; O2SAT 97
--- NOTE | 2024-08-21 13:01 | CM ---
Patient seen at bedside with
Patient wants to go to [facility] at [phone] - accepted patient
called for insurance auth - [facility] NPI #: [id number], Dr. Galen Cabello NPI #: [id number] - spoke with Clyde Huang ([phone])
Faxed Clinicals to
PLAN: [facility], pending insurance approval
[2024-08-21] MEDS: ATIVAN 0.5 MG PO ×2 (13:47→21:23)
[2024-08-21] MEDS: NOVOLOG FLEXPEN-LOW RESISTANCE 2 UNITS SC (14:06)
[2024-08-21 14:10] LABS: Glucose - Point of Care 237 mg/dl (70-99)
--- NOTE | 2024-08-21 14:43 | HOSPNOTE ---
Referral received and patient will be going to rehab. I will sign off. Attending updated.
[2024-08-21 16:00] VITALS: BP 136/79
--- NOTE | 2024-08-21 16:14 | W.PN.UPDATE ---
Update Note
Progress Note Update
reviewed chart. spoke to nursing and to hospice nurse. patient's was at bedside. both of them were sleeping. he did awaken and told me he expected her to go to [facility]. i understand auth is pending. i did not wake her as there
did not seem to be much reason to . will come by in the am to talk w her. it is my understanding from my initial assessment of her that the patient would like hospice but she is agreeing to rehab bc of 's wishes.
[2024-08-21] MEDS: LIPITOR 40 MG PO (17:06)
[2024-08-21 17:19] LABS: Glucose - Point of Care 157 mg/dl (70-99)
[2024-08-21] MEDS: NOVOLOG FLEXPEN-LOW RESISTANCE 1 UNITS SC (17:54)
[2024-08-21 21:24] LABS: Glucose - Point of Care 234 mg/dl (70-99)
[2024-08-21] MEDS: NEURONTIN 100 MG PO (22:31)
[2024-08-21] MEDS: REMERON 7.5 MG PO (22:32)
[2024-08-21 23:34] VITALS: BP 137/63
[2024-08-22] MEDS: OXYCONTIN (CONTROLLED RELEASE) 10 MG PO ×3 (05:15→20:29)
[2024-08-22 07:30] VITALS: BP 128/66
[2024-08-22] MEDS: SPIRIVA RESPIMAT 2.5 MCG 2 PUFF INH (07:30)
[2024-08-22] MEDS: STRIVERDI RESPIMAT 2 PUFF INH (07:30)
[2024-08-22] MEDS: VENTOLIN NEBULES 1.25 MG INH (07:38)
[2024-08-22 08:18] LABS: Glucose - Point of Care 177 mg/dl (70-99)
[2024-08-22] MEDS: LOW STRENGTH ASPIRIN 81 MG PO (08:42)
[2024-08-22] MEDS: DELTASONE 10 MG PO (08:42)
[2024-08-22] MEDS: PROTONIX 40 MG PO (08:42)
[2024-08-22] MEDS: HEPARIN 5000 UNITS SC (08:42)
[2024-08-22] MEDS: THERAGRAN 1 TABLET PO (08:42)
[2024-08-22] MEDS: TYLENOL 1000 MG PO ×3 (08:42→22:02)
[2024-08-22] MEDS: DECADRON 2 MG PO ×2 (08:42→20:29)
[2024-08-22] MEDS: MUCINEX 600 MG PO ×2 (08:42→20:29)
[2024-08-22] MEDS: NEURONTIN 200 MG PO (08:42)
[2024-08-22] MEDS: DALIRESP 500 MCG PO (08:42)
[2024-08-22] MEDS: VISBIOME 1 CAP PO (08:43)
[2024-08-22] MEDS: NOVOLOG FLEXPEN-LOW RESISTANCE 1 UNITS SC (08:43)
--- NOTE | 2024-08-22 08:54 | W.PN.HOSP.TC ---
Today's Communication/Plan
-
[facility], pending insurance approval
Resume Eliquis on discharge
Assessment / Plan
Assessment / Plan
Impression
Patient is an 87-year-old female, diagnosed case of stage IV metastatic lung cancer, admitted for suspected right-sided lacunar infarct. Suspected thrombotic etiology with waxing and waning clinical course since her arrival. Symptoms started while
receiving chemotherapy, not TNK candidate due to Eliquis use, no intracranial hemorrhage on CTA. Repeat CT after 24 hours normal, neuro recommends to repeat CT again in 1 week to decide about resumption of Eliquis
Patient started to have blood in stools, hemoglobin relatively stable-resolved on own
Assessment/plan
Suspected acute CVA
Left-sided extremity weakness-waxing and waning symptoms with no specific timing
Risk factors atherosclerotic cardiovascular disease and hypertension
Symptoms started while she was receiving chemotherapy, did not receive TNK as was taking Eliquis at home
CAT scan so far done on arrival, and then 24 hours later have shown no intracranial hemorrhage
MRI brain-could not be done as patient claustrophobic
Continue aspirin 81 mg and high intensity statin; continue neurochecks
CT head without contrast (08/21), No acute intracranial hemorrhage.Subtle region of low-attenuation in the right lateral angela. This could be artifactual or secondary to acute or subacute ischemia.Resume Eliquis
Appreciate neurology recommendations
Patient needs chemotherapy port which will require Eliquis being held-contact Dr. Ulrich at [facility] to coordinate direct oral anticoagulation
LGIB with abdomen pain
Differential diagnosis include diverticulitis versus ischemic colitis versus infection
Multiple bowel movements on 08/17 with signs of blood, heme positive, no gross blood noticed
H hemoglobin dropped to 10.2-GI consult appreciated- CT scan likely from probable stercoral colitis given recent constipation and impaction.
CT abdomenIMPRESSION:
1. Acute uncomplicated left-sided colitis, likely of infectious/inflammatory etiology.
2. Indeterminate 1.4 cm hypoattenuating right hepatic lobe lesion. Recommend outpatient workup with dedicated MRI abdomen without and with gadolinium contrast.
GI okay with resuming Eliquis, signed off, no further intervention needed as per GI
Leukopenia
Initially had leukocytosis likely related to demargination from chronic steroid, white count now down to 1.7
Absolute neutrophil count 1.4, not currently on neutropenic precautions, no fever
WBC continue to improve since 08/18, today (08/21)7.2-Resolved
Hypertensive urgency
Not on any meds for hypertension
Presented with SBP near 160, resolved without intervention
Will continue to monitor and consider regimen for SBP goal <150 mmHg
Add hydralazine on as needed basis
Hyperglycemia due to steroid use
Patient is on chronic steroid with prednisone 10 mg daily and dexamethasone 2 mg twice daily
Blood sugars here have been fairly well-controlled and <200 over 3 lab draws
Will add on low resistance ISS with Accu-Cheks and monitor for now
Depression
Patient has been very tearful related to her new neurologic deficit
Sodium level stable
Continues Remeron at 7.5 mg at bedtime
Other medical conditions
#Stage IVb NSCLC
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
#Former smoker
-Currently on third line chemotherapy with gemcitabine after recent signs of progression on second line
-Was initially on carbo/pemetrexed with Keytruda, subsequently on Ktazdi (which caused pneumonitis)
-Current regimen also includes chronic immunosuppression with prednisone 10 AM and decadron 2 BID
-Follows with [facility], previously received treatment at [facility]
#Dyslipidemia
-No known ASCVD history previously; LDL here 95
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
-Placed back onto high intensity statin due to likely CVA
#GERD
-Home regimen includes daily omeprazole
-No known history of erosive esophagitis or Yarbrough's esophagus
#Chronic pain on opiates
-Secondary to cancer related issues, has multifactorial pain
-Home regimen includes gabapentin for neuropathic pain, oxycodone for somatic pain
Added on heating pad as requested by patient
#COPD without exacerbation
-No PFTs to review; Home regimen includes Roflumilast, Anoro Ellipta, prednisone/dex, PRN lev albuterol
-Suspect advanced ages with likely gold C to D classification
-No signs of exacerbation at this time, no O2 at baseline
#Dry eye syndrome
-Continue's Xiidra eyedrop
#H/O pulmonary embolism (2023)
-Suspect this is provoked from her metastatic cancer
-Home medications include Eliquis 5 mg twice daily
-Planning to resume Eliquis in [address] head normal on repeat
Diet: Cholesterol-lowering
DVT prophylaxis: SQ heparin
CODE STATUS: Full code
Patient changed her mind about hospice,would like to go to acute rehab
PT/OT consult placed
Anticipated Discharge: Today
Subjective/Interval History
-
Date of Service: August 22, 2024
Patient sitting, eating breakfast, feels fine
Objective Data
-
Vital Signs:
Vital Signs
Temp Pulse Resp BP Pulse Ox
97.3 F 65 15 128/66 100
08/22/24 07:30 08/22/24 07:41 08/22/24 07:41 08/22/24 07:30 08/22/24 07:41
I&O
08/21/24 08/22/24 08/23/24
06:59 06:59 06:59
Intake Total 1200 / 1200 240 / 240
Output Total 200 / 200
Balance 1200 / 1200 40 / 40
Review of Systems
-
All other systems: Reviewed and negative
Physical Exam
-
General: Appears Chronically Ill and Cachectic
HEENT: Moist Mucous Membranes and Anicteric
Respiratory: Clear to Auscultation; Negative Wheezes, Rales or Rhonchi
Cardiac: Regular Rhythm and S1/S2
GI: Soft, Nontender and Normal Bowel Sounds
Musculoskeletal: No Clubbing, No Cyanosis and No Edema
Neuro: Awake, Alert and Other (left sided weakness,LUE 2/5,LLE 1/5)
Hematologic / Lymphatic: Other (Left supraclavicular?)
Psych: Other (flat effect)
--- NOTE | 2024-08-22 09:27 | CM ---
CM called [employer] [facility] ( ) & spoke with Rocío Perez
Auth is still pending for [facility]
Pending reference # [id number]
she stated once done processing they will call & fax information
tt hospitalist
called Vy at [facility] and updated ([phone])
PLAN: [facility], once auth is approved
[2024-08-22] MEDS: ROXICODONE 5 MG PO ×2 (09:57→22:02)
[2024-08-22 11:23] VITALS: BP 159/96; PULSE 117; O2SAT 99
[2024-08-22 11:25] VITALS: BP 158/96; PULSE 117; O2SAT 99
[2024-08-22 11:56] LABS: Glucose - Point of Care 297 mg/dl (70-99)
[2024-08-22] MEDS: NOVOLOG FLEXPEN-LOW RESISTANCE 3 UNITS SC ×2 (12:28→17:20)
--- NOTE | 2024-08-22 13:03 | W.PN.UPDATE ---
Update Note
Progress Note Update
patient seen chart reviewed. discussed with nursing dr duggan and with cm. at bedside. mrs avila is very weak and frail. 'i'm tired'. she seems fearful of not being judged by her as sufficiently motivated to work towards her
recovery. i gave her 'permission' to rest when she needed rest and she asked if i could get PT to return her to bed . asked nursing to text PT. the patient is going to alf almost against her will. i suspect she would choose hospice
were it not for her . she was accepted at [facility] and is awaiting auth. she also asked me if she were going by 'stretcher or ambulance'. i asked case mgt to speak with her as i am not familiar with this. patient is currently taking 7.5
mg remeron. she is sleeping in fits and starts. she does not have much appetite. in a few days one might consider inc in remeron to 15 mg. psych will sign off as patient leaving today or tomorrow .
[2024-08-22 15:45] VITALS: BP 137/79
[2024-08-22 17:08] LABS: Glucose - Point of Care 256 mg/dl (70-99)
[2024-08-22] MEDS: LIPITOR 40 MG PO (17:19)
[2024-08-22] MEDS: ELIQUIS 5 MG PO (20:29)
[2024-08-22 21:51] LABS: Glucose - Point of Care 214 mg/dl (70-99)
[2024-08-22] MEDS: NEURONTIN 100 MG PO (22:02)
[2024-08-22] MEDS: REMERON 7.5 MG PO (22:02)
[2024-08-22 23:00] VITALS: BP 142/81
[2024-08-23] VITALS (7 sets, daily range): BP systolic 94–133; BP diastolic 57–94; PULSE 106; O2SAT 97
[2024-08-23] MEDS: TYLENOL 650 MG PO (02:59)
[2024-08-23] MEDS: OXYCONTIN (CONTROLLED RELEASE) 10 MG PO ×2 (05:08→15:01)
[2024-08-23] MEDS: VENTOLIN NEBULES 1.25 MG INH ×4 (07:24→19:46)
[2024-08-23] MEDS: SPIRIVA RESPIMAT 2.5 MCG 2 PUFF INH (07:24)
[2024-08-23] MEDS: STRIVERDI RESPIMAT 2 PUFF INH (07:24)
[2024-08-23] MEDS: VISBIOME 1 CAP PO (08:09)
[2024-08-23] MEDS: PROTONIX 40 MG PO (08:09)
[2024-08-23] MEDS: NEURONTIN 200 MG PO (08:09)
[2024-08-23] MEDS: ATIVAN 0.5 MG PO (08:09)
[2024-08-23] MEDS: THERAGRAN 1 TABLET PO (08:10)
[2024-08-23] MEDS: TYLENOL 1000 MG PO ×2 (08:10→17:31)
[2024-08-23] MEDS: ELIQUIS 5 MG PO (08:10)
[2024-08-23] MEDS: DELTASONE 10 MG PO (08:10)
[2024-08-23] MEDS: LOW STRENGTH ASPIRIN 81 MG PO (08:10)
[2024-08-23] MEDS: MUCINEX 600 MG PO (08:10)
[2024-08-23 08:34] LABS: Glucose - Point of Care 241 mg/dl (70-99)
[2024-08-23] MEDS: NOVOLOG FLEXPEN-LOW RESISTANCE 2 UNITS SC ×2 (09:18→15:02)
[2024-08-23] MEDS: DALIRESP 500 MCG PO (09:18)
[2024-08-23] MEDS: DECADRON 2 MG PO (09:18)
[2024-08-23] MEDS: ROXICODONE 5 MG PO (09:53)
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
--- NOTE | 2024-08-23 11:20 | PTOTSP ---
Speech Language Pathology
Speech reconsult placed given concern for change in breath sounds. Wet breath sounds noted at rest. Pt states this is because she hasn't been moving enough. Reviewed results/recommendations from Flexible Endoscopic Evaluation of Swallowing (FEES)
completed 08/15/24, and pt verbalized understanding. Discussed importance of single sips and intermittent cough/reswallow. She initially denied any change in swallow function. Provided thin liquids via straw sips. Took single sip initially with
immediate cough response. Then noted to take consecutive sips with immediate cough response. Pt stated she has been coughing with liquids for 2 days. Trialed tsp of puree with no overt difficulty. Pt also reported some potential esophageal
concerns, including regurgitation (not acute). Given change in breath quality and new coughing with liquids, recommend instrumental swallowing assessment. Recommend VSE to provide different view.
Recommend:
(1) VSE
(2) Cautious continuation of diet until VSE completed
(3) Aspiration precautions: sit upright, slow rate, single sips, intermittent cough/reswallow
(4) Meds whole in puree
(5) CUSTOMER PROFESSIONAL to continue to follow
[2024-08-23 12:15] LABS: Glucose - Point of Care 234 mg/dl (70-99)
--- NOTE | 2024-08-23 12:40 | PTOTSP ---
Speech Language Pathology
VIDEOFLUOROSCOPIC SWALLOWING EXAMINATION (VSE) completed. Pt with mild oropharyngeal dysphagia. Swallow function has worsened some since FEES completed 08/15/24. Suspect secondary to deconditioning. Cough is a good indicator of aspiration.
Aspiration was noted with thin liquids via tsp/consecutive straw sips and mildly thick liquids via consecutive straw sips. Aspiration likely secondary to known decreased L vocal fold movement with decreased airway protection. No significant
pharyngeal residue.
Recommend:
(1) Continue regular solids/thin liquids
(2) Aspiration precautions: single CUP sips only (no straws), slow rate, sit upright
(3) Meds whole in puree
(4) YARD WORKER to continue to follow
--- NOTE | 2024-08-23 12:48 | CM ---
Patient seen at bedside with
CM called [facility] ( ) & spoke with Karen Huynh
Auth is still pending for [facility]
Pending reference # [id number]
Called [facility] at [facility] & notified [phone]
If auth gets approved over weekend call Mar at [phone] & they can accept
updated careport
PLAN: [facility], once auth is approved
Fax #: [phone]
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
[2024-08-23] MEDS: NSS 1000 IV (16:10)
[2024-08-23] MEDS: LIPITOR 40 MG PO (17:31)
[2024-08-23 17:37] LABS: Glucose - Point of Care 260 mg/dl (70-99)
[2024-08-23] MEDS: MORPHINE SULFATE 1 MG IV ×2 (17:47→23:47)
[2024-08-23] MEDS: NOVOLOG FLEXPEN-LOW RESISTANCE 3 UNITS SC (17:51)
--- NOTE | 2024-08-23 18:10 | PTCARENOTE ---
Pt having increase WOB in sports marketing coordinator requiring 2L O2 for comfort and frequent position changes. Pt lungs course, wheezy, and rattle heard from doorway. MD made aware and saw pt. Dr. Roper spoke with pt and @bedside about goals of care. Pt
persistently SOB and gurgling throughout shift. PRN breathing treatments administered by respiratory in addition to chest PT. Despite treatments and repositioning, pt having increased SOB and work of breathing, saying please help my breathing. Pt
tachycardic, sustaining HR in the 130s. MD updated with changes. Pt transferred to telemetry and PRN IV morphine ordered for air hunger. Pt's asking if he is able to bring in ashanti for the pt. This RN informed him that is against our
policy, shrugged his shoulders and asked again 'are you sure?' Pt still appears uncomfortable but stating her breathing feels 'watch inspector final movement' after administration of dilaudid. Will continue to monitor.
--- NOTE | 2024-08-23 20:45 | PTCARENOTE ---
At change of shift patient ringing for patient and bed to be changed as patient was saturated in urine. Upon assessment, patient extremely SOB at rest, SHUKLA, HR sustained in 140-150s since prior to change of shift -- MDs aware throughout
dayshift of HR issues, no interventions. New incontinence, patient denies issues prior. Coughing noted with oral intake, feeding patient upon staff entering room. Also of note, large purple/black hematoma to abdomen, dayshift RN reports no
bruising noted today until now. GLASSWARE ENGRAVER notified of all symptoms/assessments. Request for rectal temp to be obtained. Rectal temp 103.0F, BP 117/71, HR 153, RR 24, 95% on 2LNC. Requested to also have bladder scan obtained -- 10mls noted on scan. IVF
rate increased per IMPORT EXPORT CLERK, labs ordered and obtained, blood cultures still pending collection at this time - STEEL BOX TOE INSERTER to obtain Blood cultures and new CBC order. Unable to provide oral medications to patient for safety reasons, no evening/HS medications
provided. Ice packs placed on patient to aid in fever reduction. Patient to be transferred to ICU for IMU overflow. Bed obtained, waiting to give report. Will monitor patient closely.
[2024-08-23 21:36] LABS: Glucose - Point of Care 230 mg/dl (70-99)
[2024-08-23 21:47] LABS: ALT (SGPT) 63 U/L (0-35); AST (SGOT) 27 U/L (14-36); Albumin 2.9 g/dl (3.5-5.0); Alkaline Phosphatase 102 U/L (38-126); Blood Urea Nitrogen 34 mg/dl (7-17); Calcium 8.4 mg/dl (8.4-10.2); Carbon Dioxide 22 mmol/L (22-30); Chloride 114 mmol/L (98-107); Estimated Creatinine Clearance 62 ml/min; Glucose 218 mg/dl (70-99); Magnesium 1.7 mg/dl (1.6-2.3); Potassium 4.1 mmol/L (3.5-5.1); Sodium 142 mmol/L (135-145); Total Bilirubin 0.7 mg/dl (0.2-1.3); Total Protein 5.1 g/dl (6.3-8.2); eGFR > 60.00
[2024-08-23] MEDS: MUCINEX PO (22:03)
[2024-08-23] MEDS: ROXICODONE PO (22:03)
[2024-08-23] MEDS: OXYCONTIN (CONTROLLED RELEASE) PO (22:03)
[2024-08-23] MEDS: NEURONTIN PO (22:03)
[2024-08-23] MEDS: DECADRON PO (22:03)
[2024-08-23] MEDS: ELIQUIS PO (22:03)
[2024-08-23] MEDS: REMERON PO (22:03)
[2024-08-23] MEDS: TYLENOL PO (22:04)
--- NOTE | 2024-08-23 23:30 | PTCARENOTE ---
Report given to BRIQUETTE MACHINE OPERATOR Yasmin to transfer patient to higher level.
[2024-08-24] VITALS (71 sets, daily range): BP systolic 41–192; BP diastolic 31–159
--- NOTE | 2024-08-24 00:04 | W.PN.UPDATE ---
Update Note
Progress Note Update
Notified by nursing HR upwards of 140-150s sinus tachycardia. Patient has taken Cardizem and Lopressor PO in the past but these were stopped due to SBP <130. Pt also found to have rectal temp of 103F. ICE packs applied. also found with bruising on
abdomen so held Eliquis for now. Blood cultures, CBC, CMP, mag, and lactic added. Increased NS to 100 ml/hr. Transferred to IMU status (ICU overflow). updated earlier this evening by myself.
[2024-08-24] MEDS: MORPHINE SULFATE 1 MG IV (00:36)
[2024-08-24 00:44] LABS: Hematocrit 35.5 % (37.0-47.0); Mean Corp Hgb Conc. 33.8 g/dL (33.0-37.0); Mean Corpuscular Hgb 29.4 pg (27.0-31.0); Mean Platelet Volume 9.9 fL (7.4-10.4); Platelet Count 128 10^3/uL (130-400); Red Blood Cell Count 4.08 10^6/uL (4.20-5.40); Red Cell Dist. Width 20.6 % (11.5-14.5); White Blood Cell Count 16.9 10^3/uL (4.8-10.8)
[2024-08-24] MEDS: VENTOLIN NEBULES 1.25 MG INH ×4 (00:58→11:47)
[2024-08-24] MEDS: NSS 500 IV ×2 (01:33→02:45)
[2024-08-24] MEDS: MORPHINE SULFATE 2 MG IV ×6 (01:33→20:05)
[2024-08-24] MEDS: NSS 1000 IV (02:03)
[2024-08-24] MEDS: ZOSYN 50 IV ×4 (02:35→20:07)
[2024-08-24] MEDS: ATIVAN 0.5 MG IV ×2 (02:45→06:00)
[2024-08-24] MEDS: TRANSDERM-SCOP 1 PATCH TRANSDERM ×2 (02:45→21:10)
[2024-08-24] MEDS: NEO-SYNEPHRINE 250 IV ×2 (02:58→15:04)
[2024-08-24 03:41] LABS: B.E. -2.4 mmol/L; HCO3 21.2 mmol/L (21-28); O2 Saturation % 93.4 % (94-98); PCO2 32 mmHg (32-35); pH 7.43 (7.35-7.45)
[2024-08-24 03:43] LABS: O2 Therapy 2
[2024-08-24 03:44] LABS: PO2 59 mmHg (83-108)
[2024-08-24 03:46] LABS: Hematocrit 33.7 % (37.0-47.0); Hemoglobin 10.8 g/dL (12.0-16.0); Mean Corpuscular Hgb 28.8 pg (27.0-31.0); Mean Corpuscular Volume 89.9 fL (81.0-99.0); Mean Platelet Volume 10.4 fL (7.4-10.4); Platelet Count 135 10^3/uL (130-400); Red Blood Cell Count 3.75 10^6/uL (4.20-5.40); Red Cell Dist. Width 20.5 % (11.5-14.5)
[2024-08-24 04:13] LABS: Blood Urea Nitrogen 38 mg/dl (7-17); Calcium 7.8 mg/dl (8.4-10.2); Carbon Dioxide 24 mmol/L (22-30); Chloride 114 mmol/L (98-107); Estimated Creatinine Clearance 46 ml/min; Glucose 211 mg/dl (70-99); Magnesium 1.8 mg/dl (1.6-2.3); Potassium 4.4 mmol/L (3.5-5.1); Sodium 144 mmol/L (135-145); eGFR > 60.00
[2024-08-24 04:15] LABS: Absolute Neutrophils -Man Diff 18.4 10^3/uL (1.4-6.5); Atypical Lymphocytes 2 %; Band Neutrophils 52 % (0-3); Lymphocytes 2 % (20-51); Metamyelocytes 2 % (-); Monocytes 2 % (2-9); Normal RBC Morphology No; Nucleated Red Blood Cells 4 (-); Platelets Checked Yes; Segmented Neutrophils 40 % (42-75); Total Cells Counted 100
[2024-08-24 04:21] LABS: NT-proBNP 2700 pg/ml
[2024-08-24 04:23] LABS: Toxic Granulation 1+
[2024-08-24 04:27] LABS: Polychromasia Occasional
[2024-08-24 04:28] LABS: Anisocytosis 2+; Ovalocytes Occasional
[2024-08-24] MEDS: OXYCONTIN (CONTROLLED RELEASE) PO (04:59)
[2024-08-24] MEDS: LASIX 20 MG IV (05:01)
[2024-08-24 05:19] LABS: COVID-19 Antigen Negative (Negative)
--- NOTE | 2024-08-24 05:20 | PTCARENOTE ---
Rec'd pt from 3W with elevated temp/white count and tachycardia 140s. Previous nurse also noted that new bruising was discovered on left abdomen, eliquis on hold. Upon arrival pt obviously struggling to breathe, with rattle noise noted in airway. Pt
trying to talk between breaths. Oriented/anxious, GRANADOS left side weak as previously documented. Pt c/o pain 'all over', mostly abdomen/coccyx. Morphine given as ordered for pain with little effect on pain scale provided by patient. Several follow up
doses needed. Ativan X1 given. Temp 100.8 MA, via rectal probe. Pulses very weak. #22 in left wrist tender to flush. Ultrasound guided #18 placed in LUE. IVF as ordered. Lewis added to maintain MAP 65. NS bolus [id number], labs sent, along with cultures
and FLU/COVID swabs, then Zosyn started. 2L nasal cannula. . RR 40s. Dyspnea at rest, c/o 'not being able to breathe'. Chest xray done. ABG sent and resulted. Decision made to increase based on results and pt presentation/WOB, now on high flow
oxygen 70%/50L. RT at bedside for breathing treatments as needed. Current sat 97%. Pt appears uncomfortable and struggling to breathe. Based on XRAY, 20mg IV lasix given. Pt kept NPO for possible impending intubation. Purewick applied for
incontinence/I&Os. Skin as documented. at bedside and updated on plan of care. Will monitor.
[2024-08-24] MEDS: NSS (PRESERVATIVE FREE) 0.25 ML IV (06:00)
--- NOTE | 2024-08-24 06:39 | W.PN.UPDATE ---
Update Note
Progress Note Update
Patient transferred from m/s to IMU level of care due to tachycardia,fever, and hypotension. Patient also continued to have upper respiratory rattle. Labs show + leukocytosis, Rx 500cc bolus x2, Zosyn, UA, and CXR. Despite mentioned intervention,
patient continued to be hypotensive and tachycardic and more tachypnic. CXR, BNP, and ABG noted. Rx Neosynephrine gtt, O2 titrated to highflow, small dose of lasix and morphine given. Patient also continues to be febrile, rx 1g Ofirmev. Discussed
case with Dr. Potter and ICU TELEMETRY MONITOR. at the bedside.
[2024-08-24] MEDS: OFIRMEV 100 IV (07:27)
[2024-08-24] MEDS: MAGNESIUM SULFATE 100 IV (07:28)
[2024-08-24] MEDS: NEURONTIN PO ×2 (07:50→22:12)
[2024-08-24] MEDS: DECADRON PO (07:50)
[2024-08-24] MEDS: LOW STRENGTH ASPIRIN PO (07:50)
[2024-08-24] MEDS: MUCINEX PO ×2 (07:50→20:07)
[2024-08-24] MEDS: DELTASONE PO (07:50)
[2024-08-24] MEDS: DALIRESP PO (07:50)
[2024-08-24] MEDS: THERAGRAN PO (07:51)
[2024-08-24] MEDS: VISBIOME PO (07:51)
[2024-08-24] MEDS: TYLENOL PO (07:51)
[2024-08-24] MEDS: PROTONIX PO (07:51)
[2024-08-24 07:57] LABS: Glucose - Point of Care 214 mg/dl (70-99)
[2024-08-24] MEDS: SPIRIVA RESPIMAT 2.5 MCG INH (08:08)
[2024-08-24] MEDS: STRIVERDI RESPIMAT INH (08:08)
[2024-08-24 08:12] LABS: B.E. -2.9 mmol/L; HCO3 20.4 mmol/L (21-28); O2 Saturation % 99.1 % (94-98); PCO2 30 mmHg (32-35); PO2 180 mmHg (83-108); pH 7.44 (7.35-7.45)
[2024-08-24] MEDS: NOVOLOG FLEXPEN-LOW RESISTANCE SC (08:17)
--- NOTE | 2024-08-24 08:28 | PTCARENOTE ---
pt received this am, lethargic, minimally arousable, Dr. Roper and Dr. Kwok notified, stat abg completed. pt remains on HFNC. Dr. Roper at bedside- ordered to hold iv fluids and am insulin. Dr. Roper aware unable to complete NIH. pt not
following commands, moves right arm. pt with rattled breathing, HR ST in 130s-140s, remains febrile, ofirmev given see mar. at bedside.
--- NOTE | 2024-08-24 08:42 | PTCARENOTE ---
pt aroused to name, was able to wiggle right toes and squeeze RN hand with right hand, unable to move left side, Dr. Roper remains aware, GCS 9, pt remains unable to complete NIH.
--- NOTE | 2024-08-24 08:45 | PTCARENOTE ---
pt aroused to name, was able to wiggle right toes and squeeze RN hand with right hand, unable to move left side, Dr. Roper remains aware, GCS 11, pt remains unable to complete NIH.
--- NOTE | 2024-08-24 08:50 | CON.INTV ---
Consultation
Consultation Request
Date/Time Consultation Requested: 08/24/2024832
Date/Time Consultation Performed: 08/24/2024844
Requesting Provider: Dr. Roper
Performing Provider: Dr. Kwok
Reason for Consultation: Hypoxia/Shock
Medical History
-
Chief Complaint: Weakness + left leg numbness
History of Present Illness:
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
COPD who presented with left-sided weakness. She presented from the infusion center. She initially was diagnosed with an acute TIA/CVA. Also initially with hypertensive urgency. Initial CT head on 08/13/2024 showed no acute intracranial
abnormality, and subsequent CTA head/neck showed atherosclerotic changes of the carotid bulbs and proximal ICA bilaterally without significant stenosis, also no internal carotid artery or vertebral artery dissection, and no intracranial vessel
cutoff. Neurology consulted who diagnosed her with acute left pure motor lacunar syndrome. She was not deemed a candidate for TNK due to Eliquis use. She also was found to have heme positive stools and GI consulted. She has constipation and
there was concern for stercoral colitis. No GI intervention recommended at that time. Hospice was brought up but the had concerns with this as he did not want the patient to give up. Patient became increasingly hypoxic with audible
rhonchi which worsened from 08/23 - 08/24. She was upgraded to the IMU and required high flow nasal cannula, and also became hypotensive requiring Lewis-Synephrine. Patient then upgraded to the ICU on 08/24 due to worsening hypotension and continued
hypoxia. Parliamentary Librarian services consulted for additional management/recommendations.
When I saw the patient this morning, she continued to be minimally responsive although she does open her eyes and follow simple commands but is exquisitely weak with audible rhonchi. Currently on high flow nasal cannula at 60% FiO2, 50 L/min,
saturating 98%. Heart rate 123, BP 112/66 on Lewis-Synephrine at 140 mcg/min. Patient's is at bedside and all questions were answered.
PMHx: Metastatic Stage IVb NSCLC in right upper lung with metastasis to bone s/p XRT + chemo/immunotherapy complicated by pneumonitis, hyperlipidemia, history of PE (03/03) on Eliquis, GERD, insomnia, COPD, former tobacco smoker, dry eye syndrome
PSHx: Tonsillectomy, cholecystectomy
Past Medical History
Past Medical History: Other (Above as per HPI)
Past Surgical History: Other (Above as per HPI)
Social History
Tobacco: Former Smoker (38-axbd-xrnc history, quit at age 69)
Alcohol: None
Drug: None
Personal:
Living: With Family (= Sonu)
Family History
Family History: Adopted
Allergies / Home Medications
Allergies
Allergy/AdvReac Type Severity Reaction Status Date / Time
codeine Allergy Nausea / Verified 08/13/24 12:22
Vomiting
hydromorphone [From Dilaudid] Allergy Rash Verified 08/23/24 19:58
moxifloxacin [From Avelox] Allergy Unknown Verified 08/23/24 19:58
Home Medications
�Medication �Instructions �Recorded �Confirmed �Last Taken �Type
Bifidobacterium infantis 4 mg 4 mg PO DAILY probiotic 08/13/24 08/13/24 08/13/24 History
capsule (Align (B.infantis))
acetaminophen 500 mg tablet 1,000 mg PO QID Pain 08/13/24 08/13/24 08/13/24 History
(Tylenol Extra Strength)
apixaban 5 mg tablet (Eliquis) 5 mg PO BID Blood Clot 08/13/24 08/13/24 08/13/24 History
Prevention/Tx
dexamethasone 2 mg tablet 2 mg PO BID inflammation 08/13/24 08/13/24 08/13/24 History
gabapentin 100 mg capsule 100 mg PO HS neuropathic pain 08/13/24 08/13/24 08/12/24 History
gabapentin 100 mg capsule 200 mg PO DAILY neuropathic pain 08/13/24 08/13/24 08/13/24 History
levalbuterol HCl 0.63 mg/3 mL 0.63 mg inhalation R Q6HPRN PRN sob 08/13/24 08/13/24 Unknown History
solution for nebulization
lidocaine-prilocaine 2.5 %-2.5 % 1 applic topical DAILYPRN PRN port 08/13/24 08/13/24 Unknown History
topical cream
lifitegrast 5 % eye drops in a 1 drp BOTH EYES BID dry eye 08/13/24 08/13/24 08/13/24 History
dropperette (Xiidra)
omeprazole 40 mg capsule,delayed 40 mg PO DAILY Gastrointestinal 08/13/24 08/13/24 Unknown History
release Issue
ondansetron HCl 8 mg tablet 8 mg PO [id number] PRN nausea 08/13/24 08/13/24 Unknown History
oxycodone 10 mg tablet,crush 10 mg PO TID@0500,1400,2000 Pain 08/13/24 08/13/24 08/13/24 History
resistant,extended release 12 hr
(OxyContin)
oxycodone 5 mg tablet 5 mg PO BID@1000,2200 Pain 08/13/24 08/13/24 08/13/24 History
prednisone 20 mg tablet 10 mg PO DAILY inflammation 08/13/24 08/13/24 08/13/24 History
roflumilast 500 mcg tablet 500 mcg PO DAILY COPD 08/13/24 08/13/24 08/13/24 History
(Daliresp)
therapeutic multivitamin 1 tab PO DAILY Supplement 08/13/24 08/13/24 08/13/24 History
umeclidinium 62.5 mcg-vilanterol 1 inh inhalation R DAILY 08/13/24 08/13/24 08/13/24 History
25 mcg/actuation powdr for Lung/Breathing Issues
inhalation (Anoro Ellipta)
Review of Systems
-
Unable to Obtain full review of systems at this time due to: Acuity
Vitals / Labs / Diagnostic Testing
Vital Signs
Temp Pulse Resp BP Pulse Ox
101.1 F H 120 20 91/64 96
08/24/24 08:00 08/24/24 10:00 08/24/24 10:00 08/24/24 10:00 08/24/24 10:02
Lab Data
08/24/24 03:28
08/24/24 03:28
Laboratory Results
08/24/24 08/24/24
03:18 08:06
pH 7.43 7.44
pCO2 32 30 L
pO2 59 L* 180 H
HCO3 21.2 20.4 L
O2 Delivery Level 2
Microbiology
08/24/24 04:47 Nasal Swab Influenza Types A & B (SUKUMAR) - Final
Negative for Influenza A & B, NAAT
Negative results must be combined with clinical observations
and patient history.
Nucleic Acid Amplification test (NAAT)performed on the
[employer] platform.
Diagnostic Testing:
Physical Exam
-
HEENT: Normocephalic and Anicteric
Cardiovascular: S1/S2, Peripheral Edema (+2 lower extremity pitting edema bilaterally) and Other (Tachycardic)
Respiratory: Wheeze (negative), Rales (Bilaterally) and Rhonchi ([place] bilaterally upon expiration)
GI: Soft, Non Distended, Non Tender and Normal Bowel Sounds
Neurology: Tremors (negative) and Other (Minimally responsive although still following commands)
Skin: Warm and Dry
General: Respiratory Distress (Mild), Chills (negative), Sweats (negative) and Other (Elderly female, appears uncomfortable, on high flow NC)
Assessment
-
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
history of COPD who presented with left-sided weakness. She presented from the infusion center. She initially was diagnosed with an acute TIA/CVA. Also initially with hypertensive urgency. Initial CT head on 08/13/2024 showed no acute intracranial
abnormality, and subsequent CTA head/neck showed atherosclerotic changes of the carotid bulbs and proximal ICA bilaterally without significant stenosis, also no internal carotid artery or vertebral artery dissection, and no intracranial vessel
cutoff. Neurology consulted who diagnosed her with acute left pure motor lacunar syndrome. She was not deemed a candidate for TNK due to Eliquis use. She also was found to have heme positive stools and GI consulted. She has constipation and
there was concern for stercoral colitis. No GI intervention recommended at that time. Hospice was brought up but the had concerns with this as he did not want the patient to give up. Patient became increasingly hypoxic with audible
rhonchi which worsened from 08/23 - 08/24. She was upgraded to the IMU and required high flow nasal cannula, and also became hypotensive requiring Lewis-Synephrine. Patient then upgraded to the ICU on 08/24 due to worsening hypotension and continued
hypoxia. Parliamentary Librarian services consulted for additional management/recommendations.
Chronic conditions WINDER HELPER: Metastatic Stage IVb NSCLC in right upper lung with metastasis to bone s/p XRT + chemo/immunotherapy complicated by pneumonitis, hyperlipidemia, history of PE (03/03) on Eliquis, GERD, insomnia, COPD, former tobacco smoker,
dry eye syndrome
Impression:
#Acute respiratory failure with hypoxia requiring high flow nasal cannula
#Suspected acute CVA with left hemiparesis
#LGIB due to stercoral colitis versus ischemic colitis
#Leukocytosis
#Anemia
#Thrombocytopenia
#Hyperglycemia (HbA1c: 5.7 on 08/13/2024)
#Metastatic NSCLC with mets to bone s/p XRT, immunotherapy, chemotherapy
#Former tobacco smoker with suspected COPD
#History of PE (03/03)
Plan:
- Continue with high flow nasal cannula, titrating to keep SpO2 >88-90%
- Continue aspiration precautions; keep HOB >30-45�
- Blood gas today does not show evidence of hypercapnia with pH 7.44, pCO2 30; increased AA gradient with PO2 180 on high flow nasal cannula 60% FiO2
- Wean down FiO2 as tolerated while keeping SpO2 at goal as above
- Frequent suctioning as needed
- Given her elevated proBNP (2700), 20 mg IV Lasix given earlier this morning, although CXR shows more likely left lower lobe pneumonia with scattered opacities, no obvious concern for volume overload at this time. Would hold off on additional
Lasix for now
- Continue Abx with Zosyn
- Patient was on Striverdi + Spiriva however given that she is minimally responsive, would hold off on bronchodilators for now as albuterol may worsen her heart rate and ipratropium may make secretions thicker and increased risk of mucous plugging
- prn nebulized bronchodilators - not currently bronchospastic
- Follow-up blood cultures (collected today); if we can collect a decent sputum culture then send that as well
- is okay for us to continue with medical management without heroic interventions (see separate update note by me from today)
- Continue with vasopressors with Lewis-Synephrine, and add vasopressin as well as Solu-Cortef
- Administer albumin 25%, 25 g as her serum albumin level is <3 g/L
- Maintain MAP >65
- She appears to be uncomfortable and in pain, and previously she endorsed pain mainly in her back/sacrum likely from her malignancy
- Continue with morphine but increase as BP tolerates to help improve comfort level; aware that while we increase her level of comfort that her blood pressure may suffer but he above all wants to make sure that she is comfortable but does
not want to currently transition to full comfort measures at this time
- Replete electrolytes with K>4, Mg>2
- Maintain euglycemia with goal BG 140-180 with ISS
- Trend H/H and transfuse if needed to keep Hb>7g/dL; keep plt>20k, unless there is concern for bleeding then keep plt>50k
- DVT ppx: Pt on Eliquis (last dose 08/23 in the AM) although due to poor mentation unable to safely give this given high risk of aspiration; if patient not transition to comfort care then would start therapeutic Lovenox by tomorrow
High risk situation, poor prognosis. Hospice appropriate. All of the 's questions and concerns were answered to his satisfaction.
Continue with ICU level of care.
Critical care statement: A total of 43 minutes of critical care time was provided for this patient today. This includes management of unstable vital signs, evaluation of the patient at bedside, reviewing the patient's pertinent medical records
including radiographs, microbiology, laboratory evaluations, and discussion with primary team, consultants, pharmacy, nutrition, physical therapy, case management, charge nurse, critical care nursing, and respiratory therapy.
--- NOTE | 2024-08-24 08:52 | PTCARENOTE ---
Per Dr. Judson babcock to hold off on urine sample at this time
[2024-08-24] MEDS: ROXICODONE PO (09:06)
--- NOTE | 2024-08-24 10:03 | PTCARENOTE ---
Addendum entered by Magalie Kinsey RN 08/24/24 10:07:
per Dr. Kwok hold ekg at this time
Original Note:
pt hypotensive, roxie restarted at 40mcg per Dr. Sundar md at bedside- poc discussion with . roxie and hfnc continue. see orders.
--- NOTE | 2024-08-24 10:10 | W.PN.UPDATE ---
Update Note
Progress Note Update
Patient became hypotensive and RN notified me, and we both immediately saw the patient. SBP in the 40s and she continues to be minimally responsive on high flow nasal cannula at FiO2 60%, 50 L/min. She is saturating well despite her hypotension,
with SpO2 98%. Lewis-Synephrine now at 100 mcg/min. Discussion held with the patient's , Sonu, and we discussed her critically ill state and the sequence of events that has led to today. We discussed doing aggressive interventions like
putting her on a ventilator which would be unlikely to lead to a favorable outcome. Also discussed if her heart were to stop, would he want CPR for her and he agreed to her being made comfortable without stopping other interventions like
vasopressors or the oxygen for now.
We will continue with our current interventions without escalating care to aggressive interventions. CODE STATUS changed to DNR/DNI which he was agreeable with. Morphine order adjusted to allow us to make her more comfortable, and he understands
that if we increased the amount of comfort that she is receiving that this could lower her blood pressure, but she also would not suffer which he was most okay with. CODE STATUS changed in [facility]. Primary hospitalist updated. Given that her
vasopressor requirements are increasing, she will be upgraded to the ICU. Will continue to closely monitor her and if she is transitioned to full comfort care then we we will downgrade her at that time. Continue ICU level care for now.
--- NOTE | 2024-08-24 10:19 | PTCARENOTE ---
pt to be ICU level of care per Dr. Kwok, see note
[2024-08-24] MEDS: LIDOCAINE 4% PATCH 1 PATCH TOPICAL (10:25)
[2024-08-24] MEDS: MORPHINE SULFATE 4 MG IV (10:25)
--- NOTE | 2024-08-24 10:25 | PTOTSP ---
Patient transferred to ICU due to respiratory status - Will require updated PT orders when/if appropriate to resume therapy services.
[2024-08-24] MEDS: PITRESSIN 100 IV (10:48)
[2024-08-24] MEDS: FLEXBUMIN 100 IV ×2 (10:48→14:16)
[2024-08-24] MEDS: SOLU-CORTEF 50 MG IV ×3 (10:49→23:36)
--- NOTE | 2024-08-24 10:52 | W.PN.HOSP.TC ---
Today's Communication/Plan
-
Continue vasopressors, antibiotics, stress dose steroid
Now DNR/DNI
Wean oxygen and pressors as able
Possible within 24 hours
Comfort morphine and Ativan PRN
Assessment / Plan
Assessment / Plan
#Acute hypoxemic respiratory failure
#Circulatory shock from sepsis
#Aspiration pneumonia versus pneumonitis
-Yesterday developed rattling noise on auscultation, has been uptitrated to 50 L high flow O2 this morning
-Patient was just prior to intubation when decided on DNR/DNI status which has been placed
-Was started on IV antibiotics, vasopressors, stress dose steroid as of this morning
-Will continue with current management, full treatment other than CPR and intubation
-Wean oxygen for SpO2 goal 88 to 94% with underlying COPD
-Continue vasopressors with MAP goal 65 or greater, hold BP regimen
-Continue pulmonary toileting as able
2. 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
-Left-sided extremity weakness-waxing and waning symptoms with no specific timing-no sensory loss
-Risk factors atherosclerotic cardiovascular disease and hypertension, hypercoagulable state of malignancy
-Repeat CT without any bleed, suspected infarct in angela, unclear as not as sensitive as MRI
-Appreciate neurology recommendations-remains on aspirin, statin which will be continued on discharge
-Continue with aspirin, DOAC, high intensity statin as tolerated due to above issues
#LGIB with
-Differential diagnoses include sterile colitis versus ischemic colitis
-Multiple bowel movements on 08/17 with signs of blood, heme positive, history of constipation
-Hemoglobin initially dropped however has stabilized near 10 on DOAC and aspirin
-CT with signs of acute uncomplicated left-sided colitis
-Monitor CBC
#Depression
-Currently on Remeron at 7.5 mg at bedtime
-Appreciate psychiatry recommendations
#Stage IVb NSCLC
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
#Former smoker
-Currently on third line chemotherapy with gemcitabine after recent signs of progression on second line
-Was initially on carbo/pemetrexed with Keytruda, subsequently on Ktazdi (which caused pneumonitis)
-Current regimen also includes chronic immunosuppression with prednisone 10 AM and decadron 2 BID
-Follows with [facility], previously received treatment at [facility]
#Dyslipidemia
-No known ASCVD history previously; LDL here 95
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
-Placed back onto high intensity statin due to likely CVA
#GERD
-Home regimen includes daily omeprazole
-No known history of erosive esophagitis or Yarbrough's esophagus
#Chronic pain on opiates
-Secondary to cancer related issues, has multifactorial pain
-Home regimen includes gabapentin for neuropathic pain, oxycodone for somatic pain
Added on heating pad as requested by patient
#COPD without exacerbation
-No PFTs to review; Home regimen includes Roflumilast, Anoro Ellipta, prednisone/dex, PRN lev albuterol
-Suspect advanced ages with likely gold C to D classification
-No signs of exacerbation at this time, no O2 at baseline
#Dry eye syndrome
-Continue's Xiidra eyedrop
#H/O pulmonary embolism (2023)
-Suspect this is provoked from her metastatic cancer
-Home medications include Eliquis 5 mg twice daily
-Planning to resume Eliquis in [address] head normal on repeat
Diet: Cholesterol-lowering
DVT prophylaxis: SQ heparin
CODE STATUS: DNR
Prognosis remains poor to grim. Suspect patient may pass within next 24 hours
Anticipated Discharge: 24 - 48 hours
Subjective/Interval History
-
Date of Service: August 24, 2024
Seen and examined at the bedside. Overnight patient continued to clinically worsen and was transferred to IMU, currently in overflow at the ICU. She currently requires 50 L high flow oxygen, white cell count uptrending, significantly tachycardic,
concerned about protecting airway. Blood Bank Business Manager was about to initiate intubation process when decided to make her DNR/DNI but continue other measures such as high flow O2, antibiotics, vasopressors.
ABG this morning with PCO2 near 30 and PO2 >100
Patient remains with poor prognosis and seems to be actively dying. Has been started on some comfort measures to prevent suffering though remains full treatment other than intubation and chest compressions.
Objective Data
-
Labs:
Laboratory Results
08/24/24 08/24/24 08/24/24
00:22 03:18 03:28
WBC 16.9 H 20.0 H
Hgb 12.0 10.8 L
Hct 35.5 L 33.7 L
Plt Count 128 L 135
HCO3 21.2
Sodium 144
Potassium 4.4
Chloride 114 H
Carbon Dioxide 24
BUN 38 H
Creatinine 0.8
Glucose 211 H
Calcium 7.8 L
08/24/24
08:06
WBC
Hgb
Hct
Plt Count
HCO3 20.4 L
Sodium
Potassium
Chloride
Carbon Dioxide
BUN
Creatinine
Glucose
Calcium
Vital Signs:
Vital Signs
Temp Pulse Resp BP Pulse Ox
101.1 F H 120 20 91/64 96
08/24/24 08:00 08/24/24 10:00 08/24/24 10:00 08/24/24 10:00 08/24/24 10:02
I&O
08/23/24 08/24/24 08/25/24
06:59 06:59 06:59
Intake Total 800 / 800 1963 150 / 150
Balance 800 / 800 1963 150 / 150
Review of Systems
-
Unable to obtain full review of systems at this time due to: Acuity
Physical Exam
-
General: Well Developed, Respiratory Distress, Appears in Distress and Appears Chronically Ill; Negative Comfortable
HEENT: Normocephalic, Atraumatic, Moist Mucous Membranes and Anicteric
Respiratory: Rhonchi, Crackles and Accessory Resp Muscle Use; Negative Wheezes or Non Labored Respirations
Cardiac: Regular Rhythm, S1/S2 and Tachycardic; Negative Murmur, Rub or Gallop
GI: Soft, Nontender, Nondistended and Normal Bowel Sounds
Musculoskeletal: No Clubbing, No Cyanosis and No Edema
Skin: Warm and Dry; Negative Rash
Neuro: Sedated and Other (Flaccid left-sided extremities, minimally responsive to external stimuli, unable to assess kiss setter hand)
Data Reviewed
-
Labs: Discussed with Physician (Discussed with senior business manager)
--- NOTE | 2024-08-24 11:10 | PTCARENOTE ---
Dr. Kwok at bedside, roxie and vaso continue- see vitals. at bedside and updated. pt turned and reposiitoned, full bed bath provided. remains on HFNC.pt remains minimally arousable to tactile and name, able to continue to squeeze hand.
[2024-08-24 12:12] LABS: Glucose - Point of Care 246 mg/dl (70-99)
[2024-08-24] MEDS: NOVOLOG FLEXPEN-LOW RESISTANCE 2 UNITS SC ×2 (12:25→17:44)
[2024-08-24] MEDS: ROBINUL 0.2 MG IV ×3 (12:26→21:10)
--- NOTE | 2024-08-24 13:30 | PTCARENOTE ---
Dr. Roper notified pt no longer responding to verbal or tactile stimuli, no further orders at this time.
--- NOTE | 2024-08-24 13:35 | PTCARENOTE ---
Dr. Roper notified pt minimally responsive to verbal or tactile stimuli, no further orders at this time.
--- NOTE | 2024-08-24 16:21 | CHAP ---
Paged by ICU staff for Lydia. After consoling her and discussing with him Lydia's spiritual needs, I contacted [facility] to provide Sacrament of the Sick. Fr. Henley came and anointed Lydia. Emotional and spiritual support provided, along
with assurance of our on-going availability.
--- NOTE | 2024-08-24 16:41 | PTCARENOTE ---
pt arousable with at bedside, nodded yes to being in pain, was able to follow some simple commands. pt remains with rattle and dyspnea, morphine and robinul given as per order. vaso off, roxie on 60mcg, bc positive, Dr. Kwok remains aware.
[2024-08-24 17:20] LABS: Glucose - Point of Care 219 mg/dl (70-99)
[2024-08-24] MEDS: LIPITOR PO (17:44)
[2024-08-24 17:58] LABS: Urine Albumin 2+ (Neg - Trace); Urine Bilirubin Negative (Negative); Urine Character Clear (Clear); Urine Color Yellow; Urine Glucose Negative (Negative); Urine Ketone Negative (Negative); Urine Leukocyte Negative (Negative); Urine Nitrite Negative (Negative); Urine Occult Blood Negative (Negative); Urine Urobilinogen Negative (Neg - 1+)
[2024-08-24 18:23] LABS: Urine Granular Cast 0-2 /LPF (0); Urine Hyaline Cast 0-2 /LPF (0-2); Urine Red Blood Cell 0-2 /HPF (0-2)
[2024-08-24 18:24] LABS: Urine Bacteria Few (Negative)
--- NOTE | 2024-08-24 20:58 | PTCARENOTE ---
Addendum entered by Hang Menezes RN 08/24/24 21:01:
Pt. unable to follow commands well enough to receive accurate and or effective NIH scale, concerns presented to ICU NED in regards, NIH orders D/C per provider.
Original Note:
Assumed care of pt. approx 1900.
Remains lethargic, active rattle prominent from hallway, saturating well on 10L midflow. Visually in distress, morphine prn given.
requesting additional medication to stop rattle, ICU NED notified for additional orders placed.
Plan of care explained to , however of note doesn't seem to have full comprehension of situation in relation to clinical status as explained by numerous physicians.
[2024-08-24] MEDS: REMERON PO (22:12)
--- NOTE | 2024-08-24 23:17 | PTCARENOTE ---
Upon assessment patient appears comfortable. Lewis titrating down, expiratory rattle improving w. prns.
updated bedside.
[2024-08-24 23:59] LABS: Glucose - Point of Care 199 mg/dl (70-99)
[2024-08-25] VITALS (21 sets, daily range): BP systolic 94–121; BP diastolic 53–66
[2024-08-25] MEDS: MORPHINE SULFATE 2 MG IV ×4 (01:30→12:26)
[2024-08-25] MEDS: ZOSYN 50 IV ×2 (01:30→07:48)
--- NOTE | 2024-08-25 03:34 | PTCARENOTE ---
POC changed to Q6. Lewis remains off at this time. No further change in assessment.
[2024-08-25] MEDS: SOLU-CORTEF 50 MG IV (05:26)
[2024-08-25] MEDS: NOVOLOG FLEXPEN-MODERATE RESISTANCE 3 UNITS SC (05:26)
[2024-08-25 05:27] LABS: Glucose - Point of Care 202 mg/dl (70-99)
[2024-08-25] MEDS: LIDOCAINE 4% PATCH 1 PATCH TOPICAL (07:41)
[2024-08-25] MEDS: MUCINEX PO (08:21)
[2024-08-25] MEDS: LOW STRENGTH ASPIRIN PO (08:21)
[2024-08-25] MEDS: VISBIOME PO (08:22)
[2024-08-25] MEDS: NEURONTIN PO ×2 (08:22→21:42)
[2024-08-25] MEDS: PROTONIX PO (08:22)
--- NOTE | 2024-08-25 08:26 | PTCARENOTE ---
pt received this am lethargic- able to follow simple commands, unable to move left leg, slight left hand finger movement noted. pt able to move right side. pt nodding yes and no appropriately, stated 'it hurts to talk'. morphine given for severe
pain and order, see mar. remains at bedside, pt on 6LNC weaning as tolerated, nsr with 1st degree. all safety precautions in place.
--- NOTE | 2024-08-25 08:28 | W.PN.INTV ---
Today's Communication / Plan
Recommendations
wants to transition to full comfort care measures (see separate update note), which is appropriate given patient's continued tachycardia, shortness of breath, and clearly appears to be in pain
Stop all medications unless tailored for comfort
Continue morphine, prn Ativan and prn glycopyrrolate
She will likely require morphine drip
Emotional support provided to the
Impregnating Helper services offered
No additional recommendations at this time. Ocular Care Technician/Pulmonary service will now sign off. Please call back with any questions or concerns.
Assessment
-
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
history of COPD who presented with left-sided weakness. She presented from the infusion center. She initially was diagnosed with an acute TIA/CVA. Also initially with hypertensive urgency. Initial CT head on 08/13/2024 showed no acute intracranial
abnormality, and subsequent CTA head/neck showed atherosclerotic changes of the carotid bulbs and proximal ICA bilaterally without significant stenosis, also no internal carotid artery or vertebral artery dissection, and no intracranial vessel
cutoff. Neurology consulted who diagnosed her with acute left pure motor lacunar syndrome. She was not deemed a candidate for TNK due to Eliquis use. She also was found to have heme positive stools and GI consulted. She has constipation and
there was concern for stercoral colitis. No GI intervention recommended at that time. Hospice was brought up but the had concerns with this as he did not want the patient to give up. Patient became increasingly hypoxic with audible
rhonchi which worsened from 08/23 - 08/24. She was upgraded to the IMU and required high flow nasal cannula, and also became hypotensive requiring Lewis-Synephrine. Patient then upgraded to the ICU on 08/24 due to worsening hypotension and continued
hypoxia. Ocular Care Technician services consulted for additional management/recommendations.
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
dry eye syndrome
Impression:
#Acute respiratory failure with hypoxia requiring high flow nasal cannula, now on nasal cannula
#Suspected acute CVA with left hemiparesis
#LGIB due to stercoral colitis versus ischemic colitis
#Leukocytosis
#Anemia
#Thrombocytopenia
#Hyperglycemia (HbA1c: 5.7 on 08/13/2024)
#Metastatic NSCLC with mets to bone s/p XRT, immunotherapy, chemotherapy
#Former tobacco smoker with suspected COPD
#History of PE (03/03)
Plan:
-Patient was initially transferred here due to circulatory shock requiring vasopressors and significant hypoxia requiring high flow nasal cannula
- Patient was made DNR/DNI on 08/24 with a do not escalate plan which the agreed with
- As of today (08/25), the patient is continuing to not show signs of improvement, remains short of breath, tachycardic and appears uncomfortable/in pain
- The is okay with transitioning to full comfort care measures at this time
- Stop all medications unless tailored for comfort
- Stop blood draws/finger sticks
- DC telemetry
- Emotional support provided
- Keep NPO given her tachypnea with high risk of aspiration, in addition to her lethargic mental status
No additional recommendations at this time. Ocular Care Technician/Pulmonary service will now sign off. Thank you for allowing us to be involved in the care of this patient. Please call back with any questions or concerns.
Total time spent today was 42 minutes for this encounter. Time includes reviewing laboratory test/imaging results, reviewing pertinent medical records, obtaining and reviewing medical history, performing an appropriate exam, ordering medications,
tests and procedures. Time also includes documentation of this encounter, coordinating patient care and communicating with other healthcare professionals. Total time does not include separately billed tests performed on this date of service.
Subjective Dataa
Subjective Data
Date of Service:
Date of Service: August 25, 2024
Chief Complaint: Ocular Care Technician Follow Up
Subjective:
Patient was seen and evaluated this morning. Heart rate 125, BP 94/58 and saturating 93% on 2 L/min nasal cannula. She was able to be weaned off vasopressors. She says she feels hot. Discussion held with the and he is amenable to
transitioning to full comfort care measures given that she is continuing to be short of breath, sounds rhonchorous, and she appears to be suffering. All questions were answered and emotional support provided to the .
Review of Systems
General: Other (Unobtainable given patient's acute clinical status)
Objective Data
Data Reviewed
Vital Signs / I&O / Oxygen:
Vital Signs
Temp Pulse Resp BP Pulse Ox
97.2 F 94 15 107/56 100
08/25/24 07:46 08/25/24 09:00 08/25/24 09:00 08/25/24 09:00 08/25/24 09:00
Intake and Output
08/24/24 08/25/24 08/26/24
06:59 06:59 06:59
Intake Total 1963 867.8 / 867.8 50 / 50
Output Total 1275 / 1275
Balance 1963 -407.2 / -407.2 50 / 50
SaO2 100
Nasal Cannula flow liters per 6
minute
Physical Exam
General: Respiratory Distress (positive), Chills (negative) and Sweats (negative)
HEENT: Normocephalic and Anicteric
Cardiovascular: S1-S2, Peripheral Edema (negative) and Other (Tachycardic)
Respiratory: Wheeze (negative), Crackles (Bilateral), Rhonchi (Bilateral) and Accessory Resp Muscle Use (positive)
GI: Soft, Non Distended, Non Tender and Normal Bowel Sounds
Neurology: Tremors (negative) and Lethargic
Skin: Warm, Dry, Cyanosis (negative) and Jaundice (negative)
Labs/Micro/Reports
Microbiology
08/24/24 00:22 Blood/Venous Blood Culture - Preliminary
Positive culture in progress
08/24/24 00:22 Blood/Venous Gram Stain - Preliminary
08/24/24 00:22 Blood/Venous Blood Culture - Preliminary
Positive culture in progress
08/24/24 00:22 Blood/Venous Gram Stain - Preliminary
08/24/24 04:47 Nasal Swab Influenza Types A & B (SUKUMAR) - Final
Negative for Influenza A & B, NAAT
Negative results must be combined with clinical observations
and patient history.
Nucleic Acid Amplification test (NAAT)performed on the
[employer] platform.
--- NOTE | 2024-08-25 09:21 | PTCARENOTE ---
pt noted to be in afib/flutter, ekg completed, rate controlled 90-110, Dr. Roper and Dr. Kwok notified
--- NOTE | 2024-08-25 10:27 | W.PN.HOSP.TC ---
Today's Communication/Plan
-
Comfort measures
Assessment / Plan
Assessment / Plan
Patient developed new onset AF morning of 08/25. Discussed with how this represents new onset endorgan dysfunction and she is more than likely to develop multiorgan failure. states that he no longer wants to see her suffer and that
she has been through enough. is very tearful and just wants her to be comfortable. Patient agrees that she just wants to be comfortable but would still like to be awake if possible to interact with her . Have discontinued treatment
based medications. Comfort medications ordered. Grim prognosis with possible today
#Acute hypoxemic respiratory failure
#Circulatory shock from sepsis
#Aspiration pneumonia versus pneumonitis
-Yesterday developed rattling noise on auscultation, has been uptitrated to 50 L high flow O2 this morning
-Patient was just prior to intubation when decided on DNR/DNI status which has been placed
-Was started on IV antibiotics, vasopressors, stress dose steroid as of this morning
-Will continue with current management, full treatment other than CPR and intubation
-Wean oxygen for SpO2 goal 88 to 94% with underlying COPD
-Continue vasopressors with MAP goal 65 or greater, hold BP regimen
-Continue pulmonary toileting as able
#New onset AF
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
-Left-sided extremity weakness-waxing and waning symptoms with no specific timing-no sensory loss
-Risk factors atherosclerotic cardiovascular disease and hypertension, hypercoagulable state of malignancy
-Repeat CT without any bleed, suspected infarct in angela, unclear as not as sensitive as MRI
-Appreciate neurology recommendations-remains on aspirin, statin which will be continued on discharge
-Continue with aspirin, DOAC, high intensity statin as tolerated due to above issues
#LGIB with
-Differential diagnoses include sterile colitis versus ischemic colitis
-Multiple bowel movements on 08/17 with signs of blood, heme positive, history of constipation
-Hemoglobin initially dropped however has stabilized near 10 on DOAC and aspirin
-CT with signs of acute uncomplicated left-sided colitis
-Monitor CBC
#Depression
-Currently on Remeron at 7.5 mg at bedtime
-Appreciate psychiatry recommendations
#Stage IVb NSCLC
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
#Former smoker
-Currently on third line chemotherapy with gemcitabine after recent signs of progression on second line
-Was initially on carbo/pemetrexed with Keytruda, subsequently on Ktazdi (which caused pneumonitis)
-Current regimen also includes chronic immunosuppression with prednisone 10 AM and decadron 2 BID
-Follows with [facility], previously received treatment at [facility]
#Dyslipidemia
-No known ASCVD history previously; LDL here 95
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
-Placed back onto high intensity statin due to likely CVA
#GERD
-Home regimen includes daily omeprazole
-No known history of erosive esophagitis or Yarbrough's esophagus
#Chronic pain on opiates
-Secondary to cancer related issues, has multifactorial pain
-Home regimen includes gabapentin for neuropathic pain, oxycodone for somatic pain
Added on heating pad as requested by patient
#COPD without exacerbation
-No PFTs to review; Home regimen includes Roflumilast, Anoro Ellipta, prednisone/dex, PRN lev albuterol
-Suspect advanced ages with likely gold C to D classification
-No signs of exacerbation at this time, no O2 at baseline
#Dry eye syndrome
-Continue's Xiidra eyedrop
#H/O pulmonary embolism (2023)
-Suspect this is provoked from her metastatic cancer
-Home medications include Eliquis 5 mg twice daily
-Planning to resume Eliquis in [address] head normal on repeat
Diet: Cholesterol-lowering
DVT prophylaxis: SQ heparin
CODE STATUS: DNR
Prognosis remains poor to grim. Suspect patient may pass within next 24 hours
Anticipated Discharge: Within 24 hours
Subjective/Interval History
-
Date of Service: August 25, 2024
I have seen and examined patient at the bedside. No acute events overnight. Developed new onset AF this morning with heart rate low 100s. Otherwise stable on 10 L
Spoke with who is now electing for comfort. Patient confirms that these are her wishes. Treatment based medications discontinued
May pass today
Objective Data
-
Labs:
Laboratory Results
08/25/24 08/25/24
09:08 09:31
WBC Cancelled Pending
Hgb Cancelled Pending
Hct Cancelled Pending
Plt Count Cancelled Pending
Sodium Cancelled Pending
Potassium Cancelled Pending
Chloride Cancelled Pending
Carbon Dioxide Cancelled Pending
BUN Cancelled Pending
Creatinine Cancelled Pending
Glucose Cancelled Pending
Calcium Cancelled Pending
Vital Signs:
Vital Signs
Temp Pulse Resp BP Pulse Ox
97.2 F 94 15 107/56 100
08/25/24 07:46 08/25/24 09:00 08/25/24 09:00 08/25/24 09:00 08/25/24 09:00
I&O
08/24/24 08/25/24 08/26/24
06:59 06:59 06:59
Intake Total 1963 867.8 / 867.8 50 / 50
Output Total 1275 / 1275
Balance 1963 -407.2 / -407.2 50
Review of Systems
-
History Source: Patient
All other systems: Reviewed and negative
Physical Exam
-
General: Well Developed, Respiratory Distress and Appears Chronically Ill
HEENT: Normocephalic, Atraumatic, Moist Mucous Membranes and Anicteric
Respiratory: Rhonchi and Accessory Resp Muscle Use; Negative Non Labored Respirations
Cardiac: S1/S2, Irregular Rhythm and Tachycardic; Negative Murmur, Rub or Gallop
GI: Soft, Nontender, Nondistended and Normal Bowel Sounds
Musculoskeletal: No Clubbing, No Cyanosis and No Edema
Skin: Warm and Dry; Negative Rash
Neuro: AO x 3, Central Nerve's Intact and Other (Left-sided hemiparesis)
Psych: Anxious
Data Reviewed
-
Labs: Labs Reviewed by me, Discussed with Physician (Cigar Inspector), Discussed with Nurse, Discussed with Patient and Discussed with Family
[2024-08-25] MEDS: NOVOLOG FLEXPEN-MODERATE RESISTANCE SC (12:21)
[2024-08-25] MEDS: ROBINUL 0.2 MG IV ×2 (12:23→19:43)
--- NOTE | 2024-08-25 12:23 | W.PN.UPDATE ---
Update Note
Progress Note Update
Discussion held with the hospitalist and the this AM and the has agreed to start comfort care measures. I confirmed this. All questions were answered and emotional support provided. Orders to be changed in [facility] and she will be
TRX to med surg. If she does not pass away by tomorrow then hospice should be consulted. Risk Compliance Manager/pulmonary services will now sign off. Please call back with any questions or concerns.
[2024-08-25] MEDS: MORPHINE SULFATE 4 MG IV ×4 (13:03→15:25)
[2024-08-25] MEDS: MORPHINE 100 IV (13:17)
[2024-08-25] MEDS: ATIVAN 0.5 MG IV ×2 (13:25→20:58)
--- NOTE | 2024-08-25 13:31 | PTCARENOTE ---
pt made comfort care- pt given morphine and ativan per order, morphine gtt initiated see flowsheet. pts present at bedside, pt still able to answer questions appropriately. repositioned and oral care for comfort.
--- NOTE | 2024-08-25 14:08 | CHAP ---
Lydia was more responsive in my visit this morning - she made good eye contact and answered questions. Told me her feet felt 'stiff.' Assured her of God's loving presence. Sonu says he has 'made peace' with the situation. Emotional
and spiritual support provided.
[2024-08-25] MEDS: MORPHINE SULFATE 6 MG IV ×2 (17:35→21:29)
--- NOTE | 2024-08-25 19:00 | PTCARENOTE ---
Received patient in bed, on comfort measures, appears comfortable. st bedside
[2024-08-25] MEDS: NSS (PRESERVATIVE FREE) 0.25 ML IV (20:58)
[2024-08-26] MEDS: ROBINUL 0.2 MG IV (00:56)
[2024-08-26] MEDS: MORPHINE SULFATE 6 MG IV (01:09)
--- NOTE | 2024-08-26 02:46 | W.PN.DEATH ---
Pronouncement of
-
Called to see patient to pronounce.
No spontaneous heart tones or respirations noted.
Patient not responsive to verbal stimuli.
Patient is pronounced .
Time of : 02:35
Date of : 08/26/24
Cause of : acute hypoxic respiratory failure due to pneumonitis due to stage IV NSCLC
Family Notified: Yes (sofia- at bedside)
--- NOTE | 2024-08-26 05:05 | PTCARENOTE ---
Post mortem care performed
--- NOTE | 2024-08-26 19:12 | W.DCSUMMARY ---
Discharge Summary
Discharge Data
Date of Admission: 08/13/24
Date of Discharge: 08/26/24
-
Pending Results: No
Hospital Course
Discharging Physician :
Bhupendra Baldwin
Disposition :
Primary care physician :
Unknown
Principal Discharge diagnosis :
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
Chronic Discharge diagnosis :
Dyslipidemia's, GERD, chronic pain on opioids, COPD without exacerbation, dry eye syndrome, history of pulmonary embolism in 2023, stage IVnon-small cell lung cancer
Hospital Course :
#. 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
-Left-sided extremity weakness-waxing and waning symptoms with no specific timing-no sensory loss
-Risk factors atherosclerotic cardiovascular disease and hypertension, hypercoagulable state of malignancy
-Repeat CT without any bleed, suspected infarct in angela, unclear as not as sensitive as MRI
Neurology recommended aspirin statin
##LGIB
-Differential diagnoses include sterile colitis versus ischemic colitis
-Multiple bowel movements on 08/17 with signs of blood, heme positive, history of constipation
-Hemoglobin initially dropped however has stabilized near 10 on DOAC and aspirin
-CT with signs of acute uncomplicated left-sided colitis
#Acute hypoxemic respiratory failure
#Circulatory shock from sepsis
#Aspiration pneumonia versus pneumonitis
She remained in the hospital for about 12 days, repeated discussions were held with the patient and her regarding her prognosis and possible hospice
The and patient agreed for full CODE STATUS along with acute rehab
Patient eventually decompensated, aspirated and had pulmonary toileting done along with chest physiotherapy and IV antibiotics were added along with steroids, and patient was transferred to the ICU
Patient was just prior to intubation when decided on DNR/DNI status which was placed
On 08/25, the educational audiologist and hospitalist had a discussion with the in the morning and the agreed to start comfort measures. All questions were answered, orders were changed and she was supposed to [facility] be transition to hospice.On
08/26/2024 at 2:35 AM patient had acute hypoxemic respiratory failure secondary to pneumonitis, no spontaneous heart tones or respirations noted, patient was not responsive to verbal stimuli and was declared/pronounced at 2:35 AM
Other stable medical conditions
#Depression
-Currently on Remeron at 7.5 mg at bedtime
-Appreciate psychiatry recommendations
#Stage IVb NSCLC
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
#Former smoker
- Was currently on third line chemotherapy with gemcitabine after recent signs of progression on second line
-Was initially on carbo/pemetrexed with Keytruda, subsequently on Ktazdi (which caused pneumonitis)
-Current regimen also includes chronic immunosuppression with prednisone 10 AM and decadron 2 BID
-Follows with [facility], previously received treatment at [facility]
Important imaging findings :
Head/neck CTA 08/13/2024
IMPRESSION:
Atherosclerotic changes of the carotid bulbs and proximal internal carotid arteries bilaterally without findings to suggest hemodynamically significant stenosis.
No findings to suggest internal carotid artery or vertebral artery dissection bilaterally. Dominant right vertebral artery.
No findings to suggest proximal intracranial arterial stenosis or vessel cut off bilaterally.
Irregular right upper lobe opacity measuring at least 2 cm extending to the right hilum, suspicious for malignancy. Additional smaller right apex nodular opacity also at least suspicious for malignancy.
Head CT 08/14/2024IMPRESSION:
No acute intracranial abnormalities.
Abdomen/pelvis CT 08/18/2024
IMPRESSION:
1. Acute uncomplicated left-sided colitis, likely of infectious/inflammatory etiology.
2. Indeterminate 1.4 cm hypoattenuating right hepatic lobe lesion. Recommend outpatient workup with dedicated MRI abdomen without and with gadolinium contrast.
Repeat head CT 08/21/2024
IMPRESSION:
No acute intracranial hemorrhage.
Chest x-ray 08/24/2024IMPRESSION:
Scattered airspace opacities throughout the lungs which may represent multifocal pneumonia, less likely edema/atelectasis.
Discharge Plan
-
Patient Disposition:
Date/Time
Date/Time: 08/26/24 02:35
Discharge Date and Time
Discharge Date/Time: 08/26/24 02:35
Print Language: UPPER SORBIAN
== END 2024-08-26 02:35 | disposition expired | DRG 64 ==
LOC: ICU 15:54
PROVIDERS: Clinical Nurse Specialist Family Health; Internal Medicine; Nurse Practitioner Gerontology; Physician Assistant; Registered Nurse; ADMITTING PHYSICIAN Hospitalist; ATTENDING PHYSICIAN Hospitalist; CONSULT PHYSICIAN Internal Medicine Critical Care Medicine; CONSULT PHYSICIAN Internal Medicine Gastroenterology; CONSULT PHYSICIAN Psychiatry & Neurology Neurology; CONSULT PHYSICIAN Psychiatry & Neurology Psychiatry; EMERGENCY PHYSICIAN Student in an Organized Health Care Education/Training Program
DX: I63.81 Other cerebral infarction due to occlusion or stenosis of small artery (principal); A41.9 Sepsis, unspecified organism; J18.9 Pneumonia, unspecified organism; J96.01 Acute respiratory failure with hypoxia; R65.21 Severe sepsis with septic shock; J69.0 Pneumonitis due to inhalation of food and vomit; C34.11 Malignant neoplasm of upper lobe, right bronchus or lung; C78.7 Secondary malignant neoplasm of liver and intrahepatic bile duct; C79.51 Secondary malignant neoplasm of bone; K51.511 Left sided colitis with rectal bleeding; G81.94 Hemiplegia, unspecified affecting left nondominant side; J44.0 Chronic obstructive pulmonary disease with (acute) lower respiratory infection; K55.9 Vascular disorder of intestine, unspecified; I16.0 Hypertensive urgency; Z66 Do not resuscitate; Z51.5 Encounter for palliative care; D72.829 Elevated white blood cell count, unspecified; T38.0X5A Adverse effect of glucocorticoids and synthetic analogues, initial encounter; R73.9 Hyperglycemia, unspecified; I48.91 Unspecified atrial fibrillation; G46.5 Pure motor lacunar syndrome; F32.A Depression, unspecified; R13.10 Dysphagia, unspecified; D64.9 Anemia, unspecified; K59.00 Constipation, unspecified; D69.6 Thrombocytopenia, unspecified; I10 Essential (primary) hypertension; R49.0 Dysphonia; F40.240 Claustrophobia; G89.4 Chronic pain syndrome; G89.3 Neoplasm related pain (acute) (chronic); M25.512 Pain in left shoulder; E78.5 Hyperlipidemia, unspecified; K21.9 Gastro-esophageal reflux disease without esophagitis; G47.00 Insomnia, unspecified; H04.123 Dry eye syndrome of bilateral lacrimal glands; Z11.52 Encounter for screening for COVID-19; Z92.3 Personal history of irradiation; Z86.711 Personal history of pulmonary embolism; Z87.891 Personal history of nicotine dependence; Z79.52 Long term (current) use of systemic steroids; Z79.891 Long term (current) use of opiate analgesic; Z79.01 Long term (current) use of anticoagulants; Z79.82 Long term (current) use of aspirin
CPT/HCPCS: 36600; 70450; 70496; 70498; 71045; 74177; 74230; 80048; 80053; 80061; 81003; 81015; 82607; 82746; 82805; 82962; 83036; 83735; 83880; 84100; 84484; 85025; 85027; 85610; 85730; 87040; 87077; 87147; 87186; 87205; 87324; 87449; 87502; 87811; 92526; 92610; 92611; 92612; 93005; 93306; 94640; 94667; 97110; 97112; 97163; 97167; 97530; 97535; 99285; P9047; Q9967